=== PATIENT | female | born 1935 | race Caucasian/White ===

== ENCOUNTER 2022-01-30 19:32 | Inpatient (IN) ==
[2022-01-30] MEDS ORDERED: MoRPHine SULFATE 4 MG/ML 1 ML CARP\\VIAL IV PRN (19:54)
[2022-01-30] MEDS ORDERED: MoRPHine SULFATE 2 MG/ML CARP IV PRN (19:54)
[2022-01-30] MEDS ORDERED: ACETAMINOPHEN 1,000 MG/100 ML VIAL IV STA (19:56)
[2022-01-30] MEDS ORDERED: SODIUM CHLORIDE 0.9% 1000ML 1,000 ML IV SCH (20:00)
[2022-01-30 20:12] LABS: Basophils # (auto) 0.03 K/uL (0-0.2); Basophils % (auto) 0.2 %; Hematocrit (blood only) 35.5 % (37-47); Hemoglobin 11.4 g/dL (12.0-16.0); Immature Granulocytes # (auto) 0.06 K/uL (0.00-0.02); Immature Granulocytes % (auto) 0.4 %; Lymphocytes % (auto) 8.6 %; Mean Corpuscular Hemoglobin 27.1 pg (25-34); Mean Corpuscular Hgb Conc 32.1 g/dL (32-36); Mean Corpuscular Volume 84.5 fL (80-100); Mean Platelet Volume 10.5 fL (7.4-10.4); Monocytes # (auto) 0.88 K/uL (0.11-0.59); Monocytes % (auto) 5.8 %; Neutrophils # (auto) 12.87 K/uL (1.4-6.5); Platelet Count 171 K/uL (130-400); RDW Coefficient of Variation 14.2 % (11.5-14.5); White Blood Count 15.14 K/uL (4.8-10.8)
[2022-01-30 20:27] LABS: INR 2.5 (0.9-1.1); Partial Thromboplastin Ratio 1.3; Partial Thromboplastin Time 36.6 Seconds (21.0-31.0); Prothrombin Time 25.6 Seconds (9.0-12.0)
[2022-01-30 20:34] LABS: Albumin Globulin Ratio 1.1 (0.9-2); Albumin Level 3.9 gm/dl (3.4-5.0); BUN Creatinine Ratio 20.4 (10-20); Bilirubin,Total 0.5 mg/dl (0.2-1.0); Creatinine Clr Calc Pharmacy 45.1 ml/min; Est GFR (Non-African American) 49.2 ml/min; Globulin 3.5 gm/dl (2.5-4.0); Total Protein 7.4 gm/dl (6.0-8.3)
--- NOTE | 2022-01-30 20:40 | Emergency Department Note ---
Impression & Plan Closed fracture of left hip, Fall from standing, Atrial fibrillation, On warfarin therapy ED Provider Note NAME: GREER IQBAL AGE: 86 SEX: F ARRIVES VIA: Ambulance INFORMANT: Patient ED PROVIDER(S): Watson Browning MD CHIEF COMPLAINT: Left hip pain PLAN: Disposition: Admit MEDICAL DECISION MAKING: The patient is a pleasant 86-year-old woman with a past medical history of atrial fibrillation and DVT on warfarin, CAD, history of CO, PUD, hypertension, hyperlipidemia who presents to the emergency department from home via EMS after having a mechanical fall falling onto her left hip suffering deformity and inability to walk. Prior to today she which she has been doing well denies fevers, chills, cough, congestion, GI or symptoms. She denies any head strike or loss of consciousness. On arrival the patient is uncomfortable no acute distress, afebrile with stable vital signs. Her left leg is externally rotated and shortened. Distal PMS intact. She has tenderness within the left inguinal region. She has no CTL spine tenderness to palpation or step-offs. Pelvis is otherwise stable. EKG without overt acute ischemia. Chest x-ray negative for acute cardiopulmonary process. WBC 15K,, nonspecific. H/H 11.4/35.5 without recent values for comparison. Platelets within normal limits. INR 2.5, therapeutic. Chemistry without metabolic acidosis. Electrolytes without significant abnormality. UA without convincing evidence of infection. Covid-19 RNA, NAAT negative. Plain films of the left hip and pelvis demonstrate intertrochanteric fracture per my preliminary review. Patient and her daughter at bedside agree with plan for admission. Case was discussed with Dr. Dominguez, [facility] hospitalist who will evaluate the patient for admission. Triage Nursing notes reviewed and agree them. Prior medical records reviewed Vital Signs: reviewed and remarkable for no significant abnormalities Differential diagnosis: Fracture, subluxation, dislocation, contusion, ligamentous injury, neurovascular, compartment syndrome, rhabdomyolysis, as well as other pathologies. ER treatment provided: See below. Diagnostics interpreted by me: ECG: Atrial fibrillation, 113 bpm, no ectopy, nonspecific ST and T wave abnormality, no overt ST elevation or depression, QTC 416, QRS 72. Cardiac Monitoring: An order for continuous cardiac monitoring was placed and demonstrated Atrial fibrillation, 113 bpm, no ectopy. Laboratory studies: See below Imaging studies: See below Consultation(s): Case was discussed with Dr. Dominguez, [facility] hospitalist who will evaluate the patient for admission. HPI: The patient is a pleasant 86-year-old woman with a past medical history of atrial fibrillation and DVT on warfarin, CAD, history of CO, PUD, hypertension, hyperlipidemia who presents to the emergency department from home via EMS after having a mechanical fall falling onto her left hip suffering deformity and inability to walk. Prior to today she which she has been doing well denies fevers, chills, cough, congestion, GI or symptoms. She denies any head strike or loss of consciousness. ROS: See above HPI for pertinent positives & negatives. A total of 10 systems reviewed and were otherwise negative. VITALS:See Below PHYSICAL EXAMINATION: GENERAL: Awake, alert, uncomfortable-appearing, in no distress HENT: Normocephalic, atraumatic. Oropharynx unremarkable. EYES: Normal conjunctiva. Sclera non-icteric. NECK: Supple. No nuchal rigidity. FROM. No JVD. RESPIRATORY: Clear to auscultation. CARDIAC: Regular rate, normal rhythm. Extremities warm and well perfused. Pulses equal. ABDOMEN: Soft, non-distended. No tenderness to palpation. No rebound or guarding. No masses. RECTAL: Deferred. MUSCULOSKELETAL: Chest examination reveals no tenderness. The back is symmetr ical on inspection without obvious abnormality. There is no CVA tenderness to palpation. Left leg is externally rotated and shortened. Distal PMS intact. She has tenderness within the left inguinal region. She has no CTL spine tenderness to palpation or step-offs. Pelvis is otherwise stable. LOWER EXTREMITIES: Calves are equal size bilaterally and non-tender. No edema. No discoloration. NEURO: Normal sensorium. No sensory or motor deficits noted. SKIN: No rash or jaundice noted. Watson Browning MD Past Med/Surg History Medical History Aneurysm of abdominal aorta Anticoagulant long-term use Arteriosclerosis of carotid artery Atrial fibrillation, persistent Basal cell cancer Chronic renal insufficiency Deep vein thrombosis of lower extremity Sick sinus syndrome Vertigo Surgical History H/O: hysterectomy S/P AAA repair Social History Smoking Status: Former smoker Hx Alcohol Use: No Hx Substance Use: No Preferred Language: Citizen Of [place] Communication Ability: Effective Speech Teacher Required: No Beliefs That Will Affect Care: None marital status: / Current Living Situation: Alone current occupational status: retired Other Information That Helps Us Care for You: No Feels Safe at Home: Yes Safety Concerns: Feels Safe At This Time Assistive Devices: Denture - Upper Allergies Allergies Allergy/AdvReac Type Severity Reaction Status Date / Time cefuroxime Allergy Intermediate HIVES Verified 01/30/22 22:19 Home Meds Home Medications Medication Instructions Recorded Confirmed atorvastatin 40 mg tablet 40 mg PO QPM #30 tab 06/30/19 01/30/22 metoprolol succinate 50 mg 50 mg PO DAILY tab 06/30/19 01/30/22 tablet,extended release 24 hr multivitamin (Daily Multi-Vitamin) 1 tab PO QAM 06/30/19 01/30/22 nitroglycerin 0.4 mg sublingual 0.4 mg SL Q5M PRN tab 06/30/19 01/30/22 tablet allopurinol 100 mg tablet 100 mg PO QAM 01/30/22 01/30/22 cholecalciferol (vitamin D3) 25 25 mcg PO DAILY 01/30/22 01/30/22 mcg (1,000 unit) tablet (Vitamin D3) diphenoxylate-atropine 2.5 1 tab PO Q6 PRN 01/30/22 01/30/22 mg-0.025 mg tablet (Lomotil) ferrous sulfate 325 mg (65 mg 325 mg PO DAILY 01/30/22 01/30/22 iron) tablet Previous Rx's Medication Instructions Recorded valsartan 80 mg tablet 80 mg PO DAILY #90 tab 08/27/21 furosemide 40 mg tablet 40 mg PO DAILY PRN #30 tab 09/29/21 warfarin 1 mg tablet 1 mg PO .COMPLEX #180 tab 01/12/22 Results & Data (ED) Vital Signs Vital Signs - 24 hr 01/30/22 19:54 01/30/22 21:25 Temperature 36.9 C Temperature Source Oral Pulse Rate 97 H Pulse Rate [Apical] 102 H Respiratory Rate 25 H 18 Respiratory Effort / Characteristics Non-Labored Spontaneous Respiratory Depth Normal Blood Pressure 141/94 H Blood Pressure [Right Arm] 146/76 H Blood Pressure Mean 109 Blood Pressure Mean [Right Arm] 99 Pulse Oximetry 95 92 Oxygen Delivery Method Room Air Room Air Sepsis Recent Fever Within 48 Hours No Sepsis New/Unexplained Change in Mental Status No Sepsis Action Taken by Nursing No Action Required Laboratory Data Attestation: I reviewed the patient's lab results. Result diagrams: 01/31/22 05:28 01/31/22 05:28 Lab Results 01/30/22 01/30/22 01/30/22 Range/Units 19:56 19:56 19:56 WBC 15.14 H (4.8-10.8) K/uL RBC 4.20 (4.2-5.4) M/uL Hgb 11.4 L (12.0-16.0) g/dL Hct 35.5 L (37-47) % MCV 84.5 (80-100) fL MCH 27.1 (25-34) pg MCHC 32.1 (32-36) g/dL RDW Std Deviation 44.0 (36.4-46.3) fL RDW Coeff of Marcell[place] 14.2 (11.5-14.5) % Plt Count 171 (130-400) K/uL MPV 10.5 H (7.4-10.4) fL Immature Gran % (Auto) 0.4 % Neut % (Auto) 85.0 % Lymph % (Auto) 8.6 % [place] % (Auto) 5.8 % Eos % (Auto) 0.0 % Baso % (Auto) 0.2 % Neut # (Auto) 12.87 H (1.4-6.5) K/uL Lymph # (Auto) 1.30 (1.2-3.4) K/uL [place] # (Auto) 0.88 H (0.11-0.59) K/uL Eos # (Auto) 0.00 (0-0.5) K/uL Baso # (Auto) 0.03 (0-0.2) K/uL Immature Gran # (Auto) 0.06 H (0.00-0.02) K/uL PT 25.6 H (9.0-12.0) Seconds INR 2.5 H (0.9-1.1) APTT 36.6 H (21.0-31.0) Seconds PTT Ratio 1.3 Sodium 134 L (136-145) mmol/L Potassium 4.0 (3.5-5.1) mmol/L Chloride 99 (98-107) mmol/L Carbon Dioxide 26 (21-32) mmol/L Anion Gap 9 (3-11) BUN 21 (6-23) mg/dl Creatinine 1.03 (0.6-1.2) mg/dl Est Cr Clr Drug Dosing 45.1 ml/min Est GFR ( Amer) 57.0 ml/min Est GFR (Non-Af Amer) 49.2 ml/min BUN/Creatinine Ratio 20.4 H (10-20) Glucose 115 H (70-99(Fasting)) mg/dl Estimat Average Glucose mg/dl Hemoglobin A1c (4.5-5.6) % Calcium 9.0 (8.5-10.1) mg/dl Magnesium (1.7-2.4) mg/dl Total Bilirubin 0.5 (0.2-1.0) mg/dl AST 19 (13-39) U/L ALT 11 (7-52) U/L Alkaline Phosphatase 103 (34-104) U/L Total Protein 7.4 (6.0-8.3) gm/dl Albumin 3.9 (3.4-5.0) gm/dl Globulin 3.5 (2.5-4.0) gm/dl Albumin/Globulin Ratio 1.1 (0.9-2) TSH (0.300-4.500) uIu/ml Urine Color Urine Appearance (Clear) Urine pH (4.5-7.5) Ur Specific Hope (1.000-1.030) Urine Protein (Negative) Urine Glucose (UA) (Negative) Urine Ketones (Negative) Urine Blood (Negative) Urine Nitrite (Negative) Urine Bilirubin (Negative) Urine Urobilinogen (Negative) Ur Leukocyte Esterase (Negative) Urine WBC (Auto) (0-5) /hpf Urine RBC (Auto) (0-4) /hpf U Hyaline Cast (Auto) (0-5) /lpf U Epithel Cells (Auto) (0-5) /lpf Urine Bacteria (Auto) (Negative) SARS-CoV-2, RNA, NAAT (NEGATIVE) 01/30/22 01/30/22 01/30/22 Range/Units 19:56 19:56 19:56 WBC (4.8-10.8) K/uL RBC (4.2-5.4) M/uL Hgb (12.0-16.0) g/dL Hct (37-47) % MCV (80-100) fL MCH (25-34) pg MCHC (32-36) g/dL RDW Std Deviation (36.4-46.3) fL RDW Coeff of [place]cell[place] (11.5-14.5) % Plt Count (130-400) K/uL MPV (7.4-10.4) fL Immature Gran % (Auto) % Neut % (Auto) % Lymph % (Auto) % [place] % (Auto) % Eos % (Auto) % Baso % (Auto) % Neut # (Auto) (1.4-6.5) K/uL Lymph # (Auto) (1.2-3.4) K/uL [place] # (Auto) (0.11-0.59) K/uL Eos # (Auto) (0-0.5) K/uL Baso # (Auto) (0-0.2) K/uL Immature Gran # (Auto) (0.00-0.02) K/uL PT (9.0-12.0) Seconds INR (0.9-1.1) APTT (21.0-31.0) Seconds PTT Ratio Sodium (136-145) mmol/L Potassium (3.5-5.1) mmol/L Chloride (98-107) mmol/L Carbon Dioxide (21-32) mmol/L Anion Gap (3-11) BUN (6-23) mg/dl Creatinine (0.6-1.2) mg/dl Est Cr Clr Drug Dosing ml/min Est GFR ( Amer) ml/min Est GFR (Non-Af Amer) ml/min BUN/Creatinine Ratio (10-20) Glucose (70-99(Fasting)) mg/dl Estimat Average Glucose 123 mg/dl Hemoglobin A1c 5.9 H (4.5-5.6) % Calcium (8.5-10.1) mg/dl Magnesium 2.0 (1.7-2.4) mg/dl Total Bilirubin (0.2-1.0) mg/dl AST (13-39) U/L ALT (7-52) U/L Alkaline Phosphatase (34-104) U/L Total Protein (6.0-8.3) gm/dl Albumin (3.4-5.0) gm/dl Globulin (2.5-4.0) gm/dl Albumin/Globulin Ratio (0.9-2) TSH 3.674 (0.300-4.500) uIu/ml Urine Color Urine Appearance (Clear) Urine pH (4.5-7.5) Ur Specific [place] (1.000-1.030) Urine Protein (Negative) Urine Glucose (UA) (Negative) Urine Ketones (Negative) Urine Blood (Negative) Urine Nitrite (Negative) Urine Bilirubin (Negative) Urine Urobilinogen (Negative) Ur Leukocyte Esterase (Negative) Urine WBC (Auto) (0-5) /hpf Urine RBC (Auto) (0-4) /hpf U Hyaline Cast (Auto) (0-5) /lpf U Epithel Cells (Auto) (0-5) /lpf Urine Bacteria (Auto) (Negative) SARS-CoV-2, RNA, NAAT (NEGATIVE) 01/30/22 01/30/22 Range/Units 20:30 20:50 WBC (4.8-10.8) K/uL RBC (4.2-5.4) M/uL Hgb (12.0-16.0) g/dL Hct (37-47) % MCV (80-100) fL MCH (25-34) pg MCHC (32-36) g/dL RDW Std Deviation (36.4-46.3) fL RDW Coeff of Marcellus (11.5-14.5) % Plt Count (130-400) K/uL MPV (7.4-10.4) fL Immature Gran % (Auto) % Neut % (Auto) % Lymph % (Auto) % [place] % (Auto) % Eos % (Auto) % Baso % (Auto) % Neut # (Auto) (1.4-6.5) K/uL Lymph # (Auto) (1.2-3.4) K/uL [place] # (Auto) (0.11-0.59) K/uL Eos # (Auto) (0-0.5) K/uL Baso # (Auto) (0-0.2) K/uL Immature Gran # (Auto) (0.00-0.02) K/uL PT (9.0-12.0) Seconds INR (0.9-1.1) APTT (21.0-31.0) Seconds PTT Ratio Sodium (136-145) mmol/L Potassium (3.5-5.1) mmol/L Chloride (98-107) mmol/L Carbon Dioxide (21-32) mmol/L Anion Gap (3-11) BUN (6-23) mg/dl Creatinine (0.6-1.2) mg/dl Est Cr Clr Drug Dosing ml/min Est GFR ( Amer) ml/min Est GFR (Non-Af Amer) ml/min BUN/Creatinine Ratio (10-20) Glucose (70-99(Fasting)) mg/dl Estimat Average Glucose mg/dl Hemoglobin A1c (4.5-5.6) % Calcium (8.5-10.1) mg/dl Magnesium (1.7-2.4) mg/dl Total Bilirubin (0.2-1.0) mg/dl AST (13-39) U/L ALT (7-52) U/L Alkaline Phosphatase (34-104) U/L Total Protein (6.0-8.3) gm/dl Albumin (3.4-5.0) gm/dl Globulin (2.5-4.0) gm/dl Albumin/Globulin Ratio (0.9-2) TSH (0.300-4.500) uIu/ml Urine Color Dark Yellow Urine Appearance Clear (Clear) Urine pH 5.0 (4.5-7.5) Ur Specific [place] 1.025 (1.000-1.030) Urine Protein Trace H (Negative) Urine Glucose (UA) Negative (Negative) Urine Ketones Trace H (Negative) Urine Blood 1+ H (Negative) Urine Nitrite Negative (Negative) Urine Bilirubin Negative (Negative) Urine Urobilinogen Negative (Negative) Ur Leukocyte Esterase Negative (Negative) Urine WBC (Auto) 1-5 (0-5) /hpf Urine RBC (Auto) 5-10 H (0-4) /hpf U Hyaline Cast (Auto) 1-5 (0-5) /lpf U Epithel Cells (Auto) 10-20 H (0-5) /lpf Urine Bacteria (Auto) Negative (Negative) SARS-CoV-2, RNA, NAAT NEGATIVE (NEGATIVE) Administered Medications Acetaminophen (Acetaminophen 325 Mg Tab) 650 mg PO Q6H PRN PRN Reason: Fever/pain Stop: 03/01/22 22:46 Last Admin: 01/31/22 08:51 Dose: 650 mg Documented by: [id number] Admin: 01/31/22 00:49 Dose: 650 mg Documented by: [id number] Allopurinol (Allopurinol 100 Mg Tab) 100 mg PO QAM [facility] Stop: 03/02/22 08:59 Last Admin: 01/31/22 08:51 Dose: 100 mg Documented by: [id number] Atorvastatin Calcium (Atorvastatin 40 Mg Tab) 40 mg PO QPM [facility] Stop: 03/02/22 00:14 Last Admin: 01/31/22 20:27 Dose: 40 mg Documented by: [id number] Admin: 01/31/22 00:50 Dose: 40 mg Documented by: [id number] Ferrous Sulfate (Ferrous Sulfate 325 Mg Tab) 325 mg PO DAILY [facility] Stop: 03/02/22 08:59 Last Admin: 01/31/22 08:52 Dose: 325 mg Documented by: [id number] Metoprolol Succinate (Metoprolol Succ 50mg Ext Rel Tab) 50 mg PO [facility] Stop: 03/02/22 20:59 Last Admin: 01/31/22 20:27 Dose: 50 mg Documented by: [id number] Morphine Sulfate (Morphine Sulfate 2 Mg/Ml Carp) 2 mg IV Q3H PRN PRN Reason: Pain Stop: 02/13/22 22:46 Last Admin: 01/30/22 22:54 Dose: 2 mg Documented by: [id number] [facility]ivit[facility] ([facility]itamin Tab) [facility] [place] [facility] [place]: 03/02/22 08:59 Last Admin: 01/31/22 08:51 Dose: 1 tab Documented by: [id number] Oxycodone HCl (Oxycodone Hcl Ir 5 Mg Tab (Immediate Release)) 5 mg PO Q4H PRN PRN Reason: Pain Stop: 02/13/22 22:46 Last Admin: 01/31/22 22:22 Dose: 5 mg Documented by: [id number] Admin: 01/31/22 16:48 Dose: 5 mg Documented by: [id number] Admin: 01/31/22 12:04 Dose: 5 mg Documented by: [id number] Valsartan (Valsartan 80 Mg Tab) 80 mg PO DAILY [facility] Stop: 03/02/22 08:59 Last Admin: 01/31/22 08:52 Dose: 80 mg Documented by: [id number] Discontinued Medications Furosemide (Furosemide Inj 20 Mg/2 Ml Vial) 20 mg IV ONE ONE Stop: 01/31/22 00:36 Last Admin: 01/31/22 00:49 Dose: 20 mg Documented by: [id number] Sodium Chloride (Nss 1000ml) 1,000 mls @ 75 mls/hr IV .[id number] [facility] Last Infusion: 01/31/22 00:41 Dose: 0 mls/hr Documented by: [id number] Admin: 01/30/22 20:32 Dose: 75 mls/hr Documented by: [id number] Acetaminophen (Ofirmev) 1,000 mg in 100 mls @ 400 mls/hr IV NOW STA Stop: 01/30/22 20:10 Last Infusion: 01/30/22 20:53 Dose: 0 mls/hr Documented by: [id number] Admin: 01/30/22 20:32 Dose: 400 mls/hr Documented by: [id number] Phytonadione 5 mg/ Dextrose 50.5 mls @ 101 mls/hr IV ONE ONE Stop: 01/31/22 10:29 Last Infusion: 01/31/22 12:45 Dose: 0 mls/hr Documented by: [id number] Admin: 01/31/22 12:04 Dose: 101 mls/hr Documented by: [id number] Phytonadione 2.5 mg/ Dextrose 50.25 mls @ 100.5 mls/hr IV ONE ONE Stop: 01/31/22 17:57 Last Infusion: 01/31/22 18:56 Dose: 0 mls/hr Documented by: [id number] Admin: 01/31/22 18:26 Dose: 100.5 mls/hr Documented by: [id number] Metoprolol Succinate (Metoprolol Succ 50mg Ext Rel Tab) 50 mg PO NOW STA Stop: 01/30/22 22:37 Last Admin: 01/31/22 00:50 Dose: 50 mg Documented by: [id number] Metoprolol Tartrate (Metoprolol Tartrate 1 Mg/Ml Vial) 2.5 mg IV NOW STA Stop: 01/30/22 21:40 Last Admin: 01/30/22 22:10 Dose: 2.5 mg Documented by: [id number] Morphine Sulfate (Morphine Sulfate 4 Mg/Ml 1 Ml Carp\Vial) 2 mg IV Q1H PRN PRN Reason: Severe Pain (Rating 7,8,9,10) Stop: 02/13/22 19:53 Last Admin: 01/30/22 20:32 Dose: 2 mg Documented by: [id number] Discharge Plan Visit Data Chief Complaint: Hip Pain ED Provider: Watson Browning Discharge Problem: Closed fracture of left hip, Fall from standing, Atrial fibrillation, On warfarin therapy Patient Disposition: Admitted As Inpatient Discharge Instructions Interventions: ED Discharge Assessment Last Done: 01/30/22 23:21 Discharge Problem: Closed fracture of left hip Qualifiers: Encounter type: initial encounter Qualified Code(s): S72.002A - Fracture of unspecified part of neck of left femur, initial encounter for closed fracture Fall from standing Qualifiers: Encounter type: initial encounter Qualified Code(s): W19.XXXA - Unspecified fall, initial encounter Atrial fibrillation Qualifiers: Atrial fibrillation type: unspecified Qualified Code(s): I48.91 - Unspecified atrial fibrillation
[2022-01-30 21:08] LABS: Appearance Urine Clear (Clear); Bacteria Urine Automated Negative (Negative); Bilirubin Urine Negative (Negative); Blood Urine 1+ (Negative); Color Urine Dark Yellow; Glucose Urine UA Negative (Negative); Ketones Urine Trace (Negative); Leukocyte Esterase Urine Negative (Negative); Nitrite Urine Negative (Negative); Protein Urine Trace (Negative); Specific Gravity Urine 1.025 (1.000-1.030); Urobilinogen Urine Negative (Negative)
[2022-01-30] MEDS ORDERED: METOPROLOL TARTRATE 1 MG/ML VIAL IV STA (21:39)
--- NOTE | 2022-01-30 22:29 | History & Physical Report ---
Date of Service January 30, 2022 Assessment & Plan (1) Rapid atrial fibrillation: Plan: Secondary to pain from left hip fracture secondary mechanical fall. INR therapeutic Hypertension, elevated secondary discomfort chronic diastolic heart failure (EF 55%, TTE 2011), some signs of fluid overload hx CAD/PVD status post surgery GERD, stable on regimen Hyperglycemia rule out DM past tobacco abuse. PCU Analgesia, IV Lopressor 1 dose now Facilitate nighttime beta-carlos, may need dose titration Low-dose Lasix 1 dose for now Orthopedics consult Re: Left hip fracture (Patient daughter requesting for Dr. Loyola.) N.p.o. until patient evaluated by Orthopedics in a.m. in anticipation of procedure. Recommend Cardiology preop eval if surgery recommended by Orthopedics and patient/family agreeable to attendant procedural benefits and risks. (Patient known to [facility].) Hold Coumadin in anticipation of procedure. Check hemoglobin A1c DVT prophylaxis. SCDs if INR less than 2 while Coumadin on hold Full code Patient daughter requesting updates from providers. Ms. Mine Ballard, contact #[phone]. Text document was generated using [employer] voice recognition software. It may contain grammatical or spelling errors. Kindly contact undersigned for clarification of any documentation item in question. History of Present Illness Chief Complaint: Fall, left hip pain Primary Care Provider: Norma Pandey MD History obtained from patient, family, and records. Medical history significant for chronic diastolic heart failure (EF 55%, TTE 2011), CAD, PVD status post surgery, A. fib on Coumadin, hypertension, GERD, past tobacco abuse. Patient fell at home today landing on her left hip. Patient noted achy left hip pain along with left hip deformity. Patient unable to stand up. No chest pain, usual shortness of breath on exertion/fluid retention, no LOC. No head trauma. Patient found by daughter on the floor. She was brought to the ER for evaluation. Patient noted to be in rapid A. fib upon arrival at the ER, heart rate 110s. 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 Allergies Allergy/AdvReac Type Severity Reaction Status Date / Time cefuroxime Allergy Intermediate HIVES Verified 01/30/22 22:19 Home Medications Medication Instructions Recorded Confirmed Type atorvastatin 40 mg tablet 40 mg PO QPM #30 tab 06/30/19 01/30/22 History metoprolol succinate 50 mg 50 mg PO DAILY tab 06/30/19 01/30/22 History tablet,extended release 24 hr multivitamin (Daily Multi-Vitamin) 1 tab PO QAM 06/30/19 01/30/22 History nitroglycerin 0.4 mg sublingual 0.4 mg SL Q5M PRN tab 06/30/19 01/30/22 History tablet valsartan 80 mg tablet 80 mg PO DAILY #90 tab 08/27/21 01/30/22 Rx furosemide 40 mg tablet 40 mg PO DAILY PRN #30 tab 09/29/21 01/30/22 Rx warfarin 1 mg tablet 1 mg PO .COMPLEX #180 tab 01/12/22 01/30/22 Rx allopurinol 100 mg tablet 100 mg PO QAM 01/30/22 01/30/22 History cholecalciferol (vitamin D3) 25 25 mcg PO DAILY 01/30/22 01/30/22 History mcg (1,000 unit) tablet (Vitamin D3) diphenoxylate-atropine 2.5 1 tab PO Q6 PRN 01/30/22 01/30/22 History mg-0.025 mg tablet (Lomotil) ferrous sulfate 325 mg (65 mg 325 mg PO DAILY 01/30/22 01/30/22 History iron) tablet Past Med/Surg History Medical History Aneurysm of abdominal aorta Anticoagulant long-term use Arteriosclerosis of carotid artery Atrial fibrillation, persistent Basal cell cancer Chronic renal insufficiency Deep vein thrombosis of lower extremity Sick sinus syndrome Vertigo Surgical History H/O: hysterectomy S/P AAA repair Social History Smoking Status: Former smoker Hx Alcohol Use: No Hx Substance Use: No Preferred Language: Belgian Communication Ability: Effective Special Delivery Carrier Required: No Beliefs That Will Affect Care: None marital status: / Current Living Situation: Alone current occupational status: retired Other Information That Helps Us Care for You: No Feels Safe at Home: Yes Safety Concerns: Feels Safe At This Time Assistive Devices: Denture - Upper Review of Systems Review of Systems: As per HPI, all other systems reviewed and negative Physical Exam Physical Exam: GENERAL: Comfortable, pleasant, looks younger for stated age, obese, no respiratory distress SKIN: Normal color, warm HEENT: [place] palpebral conjunctivae, no ptosis, dry buccal mucosa NECK : Supple, no tenderness CHEST : Decreased breath sounds, no tenderness HEART : Irregular, no obvious murmurs ABDOMEN: Marked distention, nontender EXTREMITIES : Bilateral LE swelling, left hip tenderness NEUROLOGIC : Coherent, no facial asymmetry, gait and stance not assessed Results & Data Results & Data ([facility]) Vital Signs (Past 12 Hours) Vital Signs Temp Pulse Pulse Resp BP BP Pulse Ox 01/30/22 22:10 118 H 165/92 H 01/30/22 21:25 102 H 18 146/76 H 92 01/30/22 19:54 36.9 C 97 H 25 H 141/94 H 95 Laboratory Results Laboratory Results WBC 15.14 K/uL (4.8-10.8) H 01/30/22 19:56 RBC 4.20 M/uL (4.2-5.4) 01/30/22 19:56 Hgb 11.4 g/dL (12.0-16.0) L 01/30/22 19:56 Hct 35.5 % (37-47) L 01/30/22 19:56 MCV 84.5 fL (80-100) 01/30/22 19:56 MCH 27.1 pg (25-34) 01/30/22 19:56 MCHC 32.1 g/dL (32-36) 01/30/22 19:56 RDW Std Deviation 44.0 fL (36.4-46.3) 01/30/22 19:56 RDW Coeff of Marcell[place] 14.2 % (11.5-14.5) 01/30/22 19:56 Plt Count 171 K/uL (130-400) 01/30/22 19:56 MPV 10.5 fL (7.4-10.4) H 01/30/22 19:56 Immature Gran % (Auto) 0.4 % 01/30/22 19:56 Neut % (Auto) 85.0 % 01/30/22 19:56 Lymph % (Auto) 8.6 % 01/30/22 19:56 [place] % (Auto) 5.8 % 01/30/22 19:56 Eos % (Auto) 0.0 % 01/30/22 19:56 Baso % (Auto) 0.2 % 01/30/22 19:56 Neut # (Auto) 12.87 K/uL (1.4-6.5) H 01/30/22 19:56 Lymph # (Auto) 1.30 K/uL (1.2-3.4) 01/30/22 19:56 [place] # (Auto) 0.88 K/uL (0.11-0.59) H 01/30/22 19:56 Eos # (Auto) 0.00 K/uL (0-0.5) 01/30/22 19:56 Baso # (Auto) 0.03 K/uL (0-0.2) 01/30/22 19:56 Immature Gran # (Auto) 0.06 K/uL (0.00-0.02) H 01/30/22 19:56 PT 25.6 Seconds (9.0-12.0) H 01/30/22 19:56 INR 2.5 (0.9-1.1) H 01/30/22 19:56 APTT 36.6 Seconds (21.0-31.0) H 01/30/22 19:56 PTT Ratio 1.3 01/30/22 19:56 Sodium 134 mmol/L (136-145) L 01/30/22 19:56 Potassium 4.0 mmol/L (3.5-5.1) 01/30/22 19:56 Chloride 99 mmol/L (98-107) 01/30/22 19:56 Carbon Dioxide 26 mmol/L (21-32) 01/30/22 19:56 Anion Gap 9 (3-11) 01/30/22 19:56 BUN 21 mg/dl (6-23) 01/30/22 19:56 Creatinine 1.03 mg/dl (0.6-1.2) 01/30/22 19:56 Est Cr Clr Drug Dosing 45.1 ml/min 01/30/22 19:56 Est GFR ( Amer) 57.0 ml/min 01/30/22 19:56 Est GFR (Non-Af Amer) 49.2 ml/min 01/30/22 19:56 BUN/Creatinine Ratio 20.4 (10-20) H 01/30/22 19:56 Glucose 115 mg/dl (70-99(Fasting)) H 01/30/22 19:56 Calcium 9.0 mg/dl (8.5-10.1) 01/30/22 19:56 Magnesium 2.0 mg/dl (1.7-2.4) 01/30/22 19:56 Total Bilirubin 0.5 mg/dl (0.2-1.0) 01/30/22 19:56 AST 19 U/L (13-39) 01/30/22 19:56 ALT 11 U/L (7-52) 01/30/22 19:56 Alkaline Phosphatase 103 U/L (34-104) 01/30/22 19:56 Total Protein 7.4 gm/dl (6.0-8.3) 01/30/22 19:56 Albumin 3.9 gm/dl (3.4-5.0) 01/30/22 19:56 Globulin 3.5 gm/dl (2.5-4.0) 01/30/22 19:56 Albumin/Globulin Ratio 1.1 (0.9-2) 01/30/22 19:56 TSH 3.674 uIu/ml (0.300-4.500) 01/30/22 19:56 Urine Color Dark Yellow 01/30/22 20:50 Urine Appearance Clear (Clear) 01/30/22 20:50 Urine pH 5.0 (4.5-7.5) 01/30/22 20:50 Ur Specific [place] 1.025 (1.000-1.030) 01/30/22 20:50 Urine Protein Trace (Negative) H 01/30/22 20:50 Urine Glucose (UA) Negative (Negative) 01/30/22 20:50 Urine Ketones Trace (Negative) H 01/30/22 20:50 Urine Blood 1+ (Negative) H 01/30/22 20:50 Urine Nitrite Negative (Negative) 01/30/22 20:50 Urine Bilirubin Negative (Negative) 01/30/22 20:50 Urine Urobilinogen Negative (Negative) 01/30/22 20:50 Ur Leukocyte Esterase Negative (Negative) 01/30/22 20:50 Urine WBC (Auto) 1-5 /hpf (0-5) 01/30/22 20:50 Urine RBC (Auto) 5-10 /hpf (0-4) H 01/30/22 20:50 U Hyaline Cast (Auto) 1-5 /lpf (0-5) 01/30/22 20:50 U Epithel Cells (Auto) 10-20 /lpf (0-5) H 01/30/22 20:50 Urine Bacteria (Auto) Negative (Negative) 01/30/22 20:50 SARS-CoV-2, RNA, NAAT NEGATIVE (NEGATIVE) 01/30/22 20:30 Diagnostic Findings Hip x-ray as per my interpretation left femoral neck fracture Chest x-ray as per my interpretation cardiomegaly, minimal congestion EKG as per my interpretation : Rate 115, A. fib, RAD, T wave flattening lateral leads
[2022-01-30] MEDS ORDERED: METOPROLOL SUCC 50MG EXT REL TAB PO STA (22:36)
[2022-01-30] MEDS ORDERED: PROMETHAZINE HCL 12.5 MG in SODIUM CHLORIDE 0.9% 50 ML IV PRN (22:47)
[2022-01-30] MEDS: MoRPHine SULFATE 2 MG/ML CARP IV PRN (22:54)
[2022-01-30] MEDS ORDERED: NITROGLYCERIN SL 0.4 MG/TAB TAB SL PRN (23:45)
[2022-01-30] MEDS ORDERED: NALOXONE HCL 0.4 MG/1 ML VIAL/CARP IV PRN (23:45)
[2022-01-30] MEDS ORDERED: MAGNESIUM HYDROXIDE SUSP 30 ML UDC PO PRN (23:45)
[2022-01-30] MEDS ORDERED: bisacodyL 10 MG SUPP PR PRN (23:45)
[2022-01-31] MEDS ORDERED: FUROSEMIDE INJ 20 MG/2 ML VIAL IV ONE (00:35)
[2022-01-31] MEDS: ACETAMINOPHEN 325 MG TAB PO PRN ×2 (00:49→08:51)
[2022-01-31] MEDS: ATORVASTATIN 40 MG TAB PO SCH ×2 (00:50→20:27)
[2022-01-31 05:57] LABS: Basophils # (auto) 0.02 K/uL (0-0.2); Basophils % (auto) 0.2 %; Eosinophils # (auto) 0.01 K/uL (0-0.5); Eosinophils % (auto) 0.1 %; Hemoglobin 10.7 g/dL (12.0-16.0); Immature Granulocytes # (auto) 0.03 K/uL (0.00-0.02); Immature Granulocytes % (auto) 0.3 %; Lymphocytes # (auto) 0.94 K/uL (1.2-3.4); Lymphocytes % (auto) 9.4 %; Mean Corpuscular Hemoglobin 26.6 pg (25-34); Mean Corpuscular Hgb Conc 31.5 g/dL (32-36); Mean Corpuscular Volume 84.6 fL (80-100); Mean Platelet Volume 10.2 fL (7.4-10.4); Monocytes # (auto) 0.97 K/uL (0.11-0.59); Monocytes % (auto) 9.7 %; Neutrophils # (auto) 8.02 K/uL (1.4-6.5); Neutrophils % (auto) 80.3 %; Platelet Count 160 K/uL (130-400); RDW Coefficient of Variation 14.2 % (11.5-14.5); RDW Standard Deviation 43.9 fL (36.4-46.3); Red Blood Count 4.02 M/uL (4.2-5.4); White Blood Count 9.99 K/uL (4.8-10.8)
[2022-01-31 06:16] LABS: Calcium 8.9 mg/dl (8.5-10.1); Creatinine Clr Calc Pharmacy 45.5 ml/min; Est GFR (African American) 59.1 ml/min; Potassium 4.6 mmol/L (3.5-5.1)
[2022-01-31 06:21] LABS: INR 2.4 (0.9-1.1); Prothrombin Time 24.5 Seconds (9.0-12.0)
--- NOTE | 2022-01-31 06:40 | XRay Report ---
XR hip LT 2V w pelvis CLINICAL HISTORY: Status post fall with left hip pain. COMPARISON STUDY: No previous studies for comparison. TECHNIQUE: AP pelvis and 2 left hip views FINDINGS: Bones: There is a nondisplaced, intertrochanteric fracture of the left femoral neck. The remaining linda danya are intact. There is no lytic or blastic lesion. Joints: The hip joint space is maintained. The bones are in anatomic alignment. Soft tissues: There is no focal soft tissue abnormality. There is no radiopaque foreign body. IMPRESSION: 1. Nondisplaced intertrochanteric fracture of the left femoral neck. ACT 112: Negative or not required by law. Electronically signed by: Aamir Ibanez M.D. 01/31/2022 6:39 AM
--- NOTE | 2022-01-31 06:41 | XRay Report ---
XR chest 1V portable CLINICAL HISTORY: preop. Evaluate cardiopulmonary status COMPARISON STUDY: 10/10/2015 TECHNIQUE: 1 view of the chest FINDINGS: Single frontal view of the chest demonstrates the heart to be moderately enlarged. There is hyperinfl ation of the lungs with attenuation of the pulmonary vasculature peripherally characteristic of under lying chronic obstructive pulmonary disease. The lungs are clear of alveolar opacities. There is no e vidence for pleural effusion. There is no evidence for vascular congestion. There is no acute osseous pathology. IMPRESSION: 1. No acute cardiopulmonary disease. 2. Cardiomegaly with evidence for underlying COPD. ACT 112: Negative or not required by law. Electronically signed by: Aamir Ibanez M.D. 01/31/2022 6:40 AM
--- NOTE | 2022-01-31 07:42 | Orthopedic Consultation ---
Date of Service January 31, 2022 Assessment & Plan (1) Closed fracture of left hip: I discussed the diagnosis and treatment options with her at bedside. I also called her daughter and discussed everything with her as well. I recommended intramedullary nail fixation of the left hip. Her and her daughter would like to proceed. They understand the risk, benefits, and alternatives to procedure and elected to proceed. Time was spent describing the procedure and postoperative expectations. The hospitalist note mentioned a cardiology clearance. She also has an INR of 2.4. I would like to work on normalizing the INR is much as possible. She can have a diet today. She will be n.p.o. past midnight tonight. We will plan on doing the procedure tomorrow morning. History of Present Illness Reason for Consultation: Left intertrochanteric hip fracture . Requesting Physician: . Attending Physician: Fariha Abraham MD Bria is a pleasant 86-year-old female who tripped and fell yesterday directly onto her left hip. She began having severe left hip pain. She came to the emergency room and radiographs demonstrated a moderately displaced intertrochanteric fracture of the left hip. She was admitted to the hospitalist service and orthopedics was consulted to evaluate and treat. . Allergies Allergy/AdvReac Type Severity Reaction Status Date / Time cefuroxime Allergy Intermediate HIVES Verified 01/30/22 22:19 Home Medications Medication Instructions Recorded Confirmed Type atorvastatin 40 mg tablet 40 mg PO QPM #30 tab 06/30/19 01/30/22 History metoprolol succinate 50 mg 50 mg PO DAILY tab 06/30/19 01/30/22 History tablet,extended release 24 hr multivitamin (Daily Multi-Vitamin) 1 tab PO QAM 06/30/19 01/30/22 History nitroglycerin 0.4 mg sublingual 0.4 mg SL Q5M PRN tab 06/30/19 01/30/22 History tablet valsartan 80 mg tablet 80 mg PO DAILY #90 tab 08/27/21 01/30/22 Rx furosemide 40 mg tablet 40 mg PO DAILY PRN #30 tab 09/29/21 01/30/22 Rx warfarin 1 mg tablet 1 mg PO .COMPLEX #180 tab 01/12/22 01/30/22 Rx allopurinol 100 mg tablet 100 mg PO QAM 01/30/22 01/30/22 History cholecalciferol (vitamin D3) 25 25 mcg PO DAILY 01/30/22 01/30/22 History mcg (1,000 unit) tablet (Vitamin D3) diphenoxylate-atropine 2.5 1 tab PO Q6 PRN 01/30/22 01/30/22 History mg-0.025 mg tablet (Lomotil) ferrous sulfate 325 mg (65 mg 325 mg PO DAILY 01/30/22 01/30/22 History iron) tablet Past Med/Surg History Medical History Aneurysm of abdominal aorta Anticoagulant long-term use Arteriosclerosis of carotid artery Atrial fibrillation, persistent Basal cell cancer Chronic renal insufficiency Deep vein thrombosis of lower extremity Sick sinus syndrome Vertigo Surgical History H/O: hysterectomy S/P AAA repair Social History Smoking Status: Former smoker Hx Alcohol Use: No Hx Substance Use: No Preferred Language: Malawian Communication Ability: Effective Field Technical Assistant Required: No Beliefs That Will Affect Care: None marital status: / Current Living Situation: Alone current occupational status: retired Other Information That Helps Us Care for You: No Feels Safe at Home: Yes Safety Concerns: Feels Safe At This Time Assistive Devices: Denture - Upper Review of Systems All systems reviewed & are unremarkable except as noted in HPI & below. Physical Exam On physical examination of the left hip, the skin quality looks good. Her leg lengths are equal. She has active dorsiflexion plantarflexion of her left ankle. . Constitutional WD/WN, vitals as above Eyes PERRL, conjunctivae normal, anicteric sclerae ENMT external ear and nose normal, oropharynx normal Neck trachea midline, no thyromegaly Respiratory normal respiratory effort Cardiovascular RRR, no murmur, no edema Gastrointestinal (Abdomen) normal bowel sounds, soft, nontender, no hepatosplenomegaly Psychiatric A+Ox3, euthymic affect Results & Data Results & Data Laboratory Results . Diagnostic Findings X-rays of the left hip show a moderately displaced intertrochanteric hip fracture. . [facility] Care Time/CCT Total # of Minutes Spent Total Time Spent with Patient: Total time spent is greater than 50% in coordination of care (as documented) at patient's floor/unit and/or counseling patient: Coding Level of Care Code 48611 Inpt Consult Level 4 Diagnoses Closed fracture of left hip S72.002A Encounter type: initial encounter (1) Closed fracture of left hip Encounter type: initial encounter Qualified Code(s): S72.002A - Fracture of unspecified part of neck of left femur, initial encounter for closed fracture
[2022-01-31 08:51] LABS: Estimated Average Glucose 123 mg/dl; Hemoglobin A1C 5.9 % (4.5-5.6)
[2022-01-31] MEDS: MULTIVITAMIN TAB PO SCH (08:51)
[2022-01-31] MEDS: allopurinoL 100 MG TAB PO SCH (08:51)
[2022-01-31] MEDS: VALSARTAN 80 MG TAB PO SCH (08:52)
[2022-01-31] MEDS: FERROUS SULFATE 325 MG TAB PO SCH (08:52)
[2022-01-31] MEDS ORDERED: PHYTONADIONE 5 MG in DEXTROSE 5% 50 ML IV ONE (10:00)
[2022-01-31] MEDS: oxyCODONE HCL IR 5 MG TAB (IMMEDIATE RELEASE) PO PRN ×3 (12:04→22:22)
--- NOTE | 2022-01-31 12:50 | Cardiology Consultation ---
Date of Consultation January 31, 2022 Assessment & Plan (1) Atrial fibrillation: -ventricular response was rapid on presentation, however, she was acutely ill. -ventricular response now adequately controlled on metoprolol succinate. -warfarin currently on hold for planned surgery. -did receive a dose of vitamin K. (2) CAD (coronary artery disease): -suffered an anterolateral ST-elevation CA in May 2009 -culprit lesion was a 99% small D1 not amenable to intervention. -other disease included a 60% mid LAD, and a 60% mid RCA. -quiescent on medical management. (3) HTN (hypertension): -adequate control on current regimen. (4) High cholesterol: -continue atorvastatin. (5) Preop cardiovascular exam: -acceptable cardiac risk for surgery without further testing. -demonstrated good functional status prior to her fall yesterday. History of Present Illness Attending Physician: Fariha Abraham MD History of Present Illness Mrs. Deras is an 86-year-old female admitted yesterday with a fractured left hip. This consultation was ordered to assist in her cardiac management and provide cardiac clearance. Of note, patient typically follows with Dr. Haresh Deras in the outpatient setting. The patient was in her usual state of health until yesterday after. She was walking around her kitchen and inadvertently tripped over a bench. She fell on her left hip and was unable to get off the floor. Evaluation in the emergency room revealed a moderately displaced intratrochanteric fracture of the left hip. Surgery is planned for tomorrow morning. The patient carries a history of coronary artery disease having suffered an anterolateral ST-elevation CA in May 2009. The culprit lesion was a 99% stenosis of a very small 1st diagonal branch. She was managed medically. Other disease included a 60% mid LAD, as 60% mid RCA stenosis. The patient has done well with medical management since that time. She does not experience e xertional angina pectoris. She is able to climb 2 flights of stairs without difficulty. She does occasionally note dyspnea with vigorous physical activity. She denies syncope, presyncope, PND, orthopnea, palpitations, lower extremity edema, and claudication. The patient also carries a history of peripheral vascular disease. She underwent a right SFA embolectomy back in 2010. She underwent a right carotid endarterectomy in September 2015. She has also had an EVAR performed for an abdominal aneurysm. She follows closely with Dr. Heredia. She also carries a history of permanent atrial fibrillation. She has been maintained on long-term anticoagulation with warfarin. She is not interested in changing to 1 of the newer agents. Currently, patient is resting comfortably in bed without complaints. Past medical and surgical history 1. Coronary artery disease-see above 2. Ischemic cardiomyopathy-resolved 3. History of CHF-resolved 4. Permanent atrial fibrillation 5. Peripheral vascular disease-see above 6. GERD 7. COPD 8. Gout 9. Chronic renal failure 10. Right SFA embolectomy-2010 11. Right CEA-September 2015 12. EV AR 13. Hysterectomy Social history , lives alone Quit tobacco use many years ago Rare alcohol Family history Noncontributory Review of systems A 10 review systems was undertaken and negative except for that described above. Allergies Allergy/AdvReac Type Severity Reaction Status Date / Time cefuroxime Allergy Intermediate HIVES Verified 01/30/22 22:19 Home Medications Medication Instructions Recorded Confirmed Type atorvastatin 40 mg tablet 40 mg PO QPM #30 tab 06/30/19 01/30/22 History metoprolol succinate 50 mg 50 mg PO DAILY tab 06/30/19 01/30/22 History tablet,extended release 24 hr multivitamin (Daily Multi-Vitamin) 1 tab PO QAM 06/30/19 01/30/22 History nitroglycerin 0.4 mg sublingual 0.4 mg SL Q5M PRN tab 06/30/19 01/30/22 History tablet valsartan 80 mg tablet 80 mg PO DAILY #90 tab 08/27/21 01/30/22 Rx furosemide 40 mg tablet 40 mg PO DAILY PRN #30 tab 09/29/21 01/30/22 Rx warfarin 1 mg tablet 1 mg PO .COMPLEX #180 tab 01/12/22 01/30/22 Rx allopurinol 100 mg tablet 100 mg PO QAM 01/30/22 01/30/22 History cholecalciferol (vitamin D3) 25 25 mcg PO DAILY 01/30/22 01/30/22 History mcg (1,000 unit) tablet (Vitamin D3) diphenoxylate-atropine 2.5 1 tab PO Q6 PRN 01/30/22 01/30/22 History mg-0.025 mg tablet (Lomotil) ferrous sulfate 325 mg (65 mg 325 mg PO DAILY 01/30/22 01/30/22 History iron) tablet Patient History Medical History Aneurysm of abdominal aorta Anticoagulant long-term use Arteriosclerosis of carotid artery Atrial fibrillation, persistent Basal cell cancer Chronic renal insufficiency Deep vein thrombosis of lower extremity Sick sinus syndrome Vertigo Surgical History H/O: hysterectomy S/P AAA repair Social History Smoking Status: Former smoker Hx Alcohol Use: No Hx Substance Use: No Preferred Language: Tongan Communication Ability: Effective Operating Room Scheduler Required: No Beliefs That Will Affect Care: None marital status: / Current Living Situation: Alone current occupational status: retired Other Information That Helps Us Care for You: No Feels Safe at Home: Yes Safety Concerns: Feels Safe At This Time Assistive Devices: Denture - Upper Physical Exam Physical Exam: In general is well-developed well-nourished white female no acu te distress. HEENT exam is negative. Neck is supple with full carotid upstrokes. There are no carotid bruits. Jugular is pressure is flat at 90. There is no thyromegaly. Cardiovascular exam reveals irregular irregular rhythm with distant heart sounds. No obvious murmurs. Lungs are clear without rales, rhonchi or wheezes. Abdomen is soft without bruits. Extremities reveal intact radial artery pulses bilaterally. There is no peripheral edema. Left lower extremity is externally rotated. Results & Data ([facility]) Vital Signs (Past 12 Hours) Vital Signs Temp Pulse Pulse Resp BP Pulse Ox Pulse Ox 01/31/22 10:56 36.6 C 68 19 93/62 L 93 01/31/22 09:30 75 01/31/22 08:11 36.4 C L 82 18 102/67 100 01/31/22 06:02 80 01/31/22 03:45 95 01/31/22 03:10 36.5 C 77 20 107/64 96 Laboratory Results CBC notes hemoglobin 10.7, crit 34.0, white count 9.99, a platelet count [id number]. Electrolytes note a sodium of 135, potassium 4.6, chloride 101, bicarb 29, BUN 21, creatinine 1.0, glucose of 122. BNP is mildly elevated 342. INR is therapeutic at 2.4. Diagnostic Findings EKG notes atrial fibrillation with a rapid ventricular response. There is nonspecific ST T-wave abnormality. quality assurance monitor final now notes rate controlled atrial fibrillation. Chest x-ray shows cardiomegaly and evidence of COPD. PG Care Time/CCT Total # of Minutes Spent Total Time Spent with Patient: Total time spent is greater than 50% in coordination of care (as documented) at patient's floor/unit and/or counseling patient: Coding Level of Care Code 59107 Initial Inpt Care Lvl 3 Diagnoses Atrial fibrillation I48.91 CAD (coronary artery disease) I25.10 HTN (hypertension) I10 High cholesterol E78.00 Preop cardiovascular exam Z01.810
--- NOTE | 2022-01-31 13:13 | Electrocardiogram Report ---
Test Reason : Blood Pressure : / mmHG Vent. Rate : 113 BPM Atrial Rate : 326 BPM P-R Int : 000 ms QRS Dur : 072 ms QT Int : 304 ms P-R-T Axes : 000 090 099 degrees QTc Int : 416 ms Poor data quality, interpretation may be adversely affected Atrial fibrillation with rapid ventricular response Rightward axis Nonspecific ST and T wave abnormality Abnormal ECG When compared with ECG of 24-APR-2014 19:05, Nonspecific T wave abnormality no longer evident in Inferior leads Confirmed by Domingo Pimentel ([id number]) on 01/31/2022 1:13:36 PM Referred By: REFERRED SELF Confirmed By:Domingo Pimentel
--- NOTE | 2022-01-31 15:32 | Hospitalist Progress Note ---
Date of Service January 31, 2022 Assessment & Plan (1) Closed fracture of left hip: (2) Rapid atrial fibrillation: Plan: 86-year-old lady with PMH of HFpEF [2012 TTE 55% EF], CAD, PVD status post surgery, A. fib on Coumadin, HTN, GERD and past tobacco abuse presented 01/30 for ED secondary to mechanical fall at home landing on her left hip. She was found to be in A. fib RVR at presentation. She is being managed for the following: #. A. fib RVR #. Left hip fracture Patient presented 01/31 secondary to mechanical fall, landing on left hip. In the ED patient was found to be in A. fib with RVR and left hip fracture Admitting x-ray left hip:Nondisplaced intertrochanteric fracture of the left femoral neck. Admitting CXR: No acute findings. Afib rvr 2/2 acute condition. Heart rate under control, cardiology evaluated, acceptable cardiac risk for surgery. Patient on Coumadin, Coumadin on hold, received 5 mg IV vitamin K in AM, follow- up with INR tomorrow Repeat INR in the evening, assess for further IV vitamin K. N.p.o. midnight, 2 OR per Ortho tomorrow. Pain management. Nausea control. #. Other chronic medical conditions: HTN, chronic diastolic heart failure, CAD/PVD status post surgery, GERD, prediabetes Continue with/resume home meds as and when appropriate Caution with blood pressure medication especially perioperative. Lifestyle modification for prediabetes. DVT prophylaxis. SCDs if INR less than 2 while Coumadin on hold Full code Patient daughter Ms. Mine Ballard, contact #[phone]. Text document was generated using voice recognition software. It may contain grammatical or spelling errors. Kindly contact undersigned for clarification of any documentation item in question. Admission and Anticipated Discharge Date Admission Date: January 30, 2022 Subjective Patient seen and examined at bedside as a follow-up of A. fib RVR and left hip fracture secondary to mechanical fall. Patient was lying in bed, on room air, NAD, reports no new acute events overnight. Patient reports eating okay and moving bowels okay. Patient denies any headache/dizziness. Patient reports hip pain under control as long as she does not move. Has urinary catheter in situ. Patient denies any chest pain/palpitation/belly pain/other review of symptoms. Patient does have some tense belly but no belly discomfort or pain or distended than usual, will continue to monitor. Physical Exam Physical Exam: GENERAL: Alert and oriented x3. NAD, on RA. HEENT: No pallor, no icterus. Pupils equal, round and reactive to light. Oral mucosa moist. NECK: No JVD, no neck masses. HEART: S1 and S2 heard. irregular rate and rhythm. No murmur, no gallop. RESPIRATORY SYSTEM: Normal AP diameter. No accessory muscle use. No wheezing, no crackles. ABDOMEN: Soft, bowel sounds present, nontender, no distention. CENTRAL NERVOUS SYSTEM: No facial droop. Speech is clear. Obeys simple commands. Moves extremities. EXTREMITIES: RLE 1-2 + edema, LLE trace edema, no erythema seen. Lt hip pain with minimal movement. Results & Data Results & Data ([facility]) Vital Signs (Past 12 Hours) Vital Signs Temp Pulse Pulse Resp BP Pulse Ox Pulse Ox 01/31/22 10:56 36.6 C 68 19 93/62 L 93 01/31/22 09:30 75 01/31/22 08:11 36.4 C L 82 18 102/67 100 01/31/22 06:02 80 01/31/22 03:45 95 (1) Closed fracture of left hip Encounter type: initial encounter Qualified Code(s): S72.002A - Fracture of unspecified part of neck of left femur, initial encounter for closed fracture
[2022-01-31 16:48] LABS: INR 1.8 (0.9-1.1)
[2022-01-31] MEDS ORDERED: PHYTONADIONE 2.5 MG in DEXTROSE 5% 50 ML IV ONE (17:28)
[2022-01-31] MEDS: METOPROLOL SUCC 50MG EXT REL TAB PO SCH (20:27)
[2022-02-01 06:51] LABS: Hematocrit (blood only) 31.2 % (37-47); Mean Corpuscular Hemoglobin 27.2 pg (25-34); Mean Corpuscular Hgb Conc 32.1 g/dL (32-36); Mean Platelet Volume 10.5 fL (7.4-10.4); Platelet Count 162 K/uL (130-400); RDW Coefficient of Variation 14.2 % (11.5-14.5); Red Blood Count 3.67 M/uL (4.2-5.4); White Blood Count 11.84 K/uL (4.8-10.8)
[2022-02-01] MEDS ORDERED: BUPIVACAINE/EPINEPHRINE 0.25% 1:200,000 30 ML VIAL ONE (06:59)
[2022-02-01 07:08] LABS: BUN Creatinine Ratio 23.1 (10-20); Calcium 8.9 mg/dl (8.5-10.1); Est GFR (African American) 53.8 ml/min; Est GFR (Non-African American) 46.4 ml/min; Phosphorus 3.3 mg/dl (2.5-4.9); Potassium 5.1 mmol/L (3.5-5.1)
--- NOTE | 2022-02-01 07:09 | History & Physical Bridge Note ---
Date of Service February 01, 2022 History & Physical Bridge Note I have examined the patient, reviewed the History & Physical and in the interval since the performance of the History & Physical I have noted the following changes of clinical significance: no changes noted
[2022-02-01] MEDS ORDERED: DEXAMETHASONE SOD INJ 4 MG/ML VIAL ONE (07:12)
[2022-02-01] MEDS ORDERED: SUCCINYLCHOLINE CHLORIDE 20 MG/ML 10 ML VIAL IV ONE (07:12)
[2022-02-01] MEDS ORDERED: ONDANSETRON INJ 2 MG/ML 2 ML VIAL ONE (07:12)
[2022-02-01] MEDS ORDERED: fentaNYL citrate 100 MCG/2 ML VIAL ONE ×2 (07:12→07:55)
[2022-02-01] MEDS ORDERED: PROPOFOL IV EMULSION 10 MG/ML 20 ML VIAL IV ONE (07:12)
[2022-02-01] MEDS ORDERED: SUGAMMADEX SODIUM 200 MG/2 ML VIAL IV ONE (07:17)
[2022-02-01] MEDS ORDERED: CLINDAMYCIN 600 MG/D5W 50 ML BAG IV ONE (07:26)
--- NOTE | 2022-02-01 07:30 | Anesthesiology Consultation ---
Date of Service February 01, 2022 Assessment & Plan ASA ASA3 Proposed Anesthesia Anesthesia Type: General Risk / Benefits Reviewed With: PT / POA / Parent / Guardian, Accepts Plan and Informed Consent Obtained History Surgery Operation Date: 02/01/22 07:30 Proposed Procedures p Intramedullary Simone Femur - Levon Loyola, DO Height/Weight Height: 5 ft 6 in Weight: 88.9 kg Allergies Allergy/AdvReac Type Severity Reaction Status Date / Time cefuroxime Allergy Intermediate HIVES Verified 01/30/22 22:19 Medications Home Medications Medication Instructions Recorded Confirmed Last Taken atorvastatin 40 mg tablet 40 mg PO QPM #30 tab 06/30/19 01/30/22 Unknown metoprolol succinate 50 mg 50 mg PO DAILY tab 06/30/19 01/30/22 Unknown tablet,extended release 24 hr multivitamin (Daily Multi-Vitamin) 1 tab PO QAM 06/30/19 01/30/22 Unknown nitroglycerin 0.4 mg sublingual 0.4 mg SL Q5M PRN tab 06/30/19 01/30/22 Unknown tablet valsartan 80 mg tablet 80 mg PO DAILY #90 tab 08/27/21 01/30/22 Unknown furosemide 40 mg tablet 40 mg PO DAILY PRN #30 tab 09/29/21 01/30/22 Unknown warfarin 1 mg tablet 1 mg PO .COMPLEX #180 tab 01/12/22 01/30/22 Unknown allopurinol 100 mg tablet 100 mg PO QAM 01/30/22 01/30/22 Unknown cholecalciferol (vitamin D3) 25 25 mcg PO DAILY 01/30/22 01/30/22 Unknown mcg (1,000 unit) tablet (Vitamin D3) diphenoxylate-atropine 2.5 1 tab PO Q6 PRN 01/30/22 01/30/22 Unknown mg-0.025 mg tablet (Lomotil) ferrous sulfate 325 mg (65 mg 325 mg PO DAILY 01/30/22 01/30/22 Unknown iron) tablet Active Medications Generic Name Dose Route Start Last Admin Trade Name Freq PRN Reason Stop Dose Admin Acetaminophen 650 mg 01/30/22 22:47 01/31/22 08:51 Acetaminophen 325 Mg Tab PO 03/01/22 22:46 650 mg Q6H PRN Administration Fever/pain Allopurinol 100 mg 01/31/22 09:00 01/31/22 08:51 Allopurinol 100 Mg Tab PO 03/02/22 08:59 100 mg QAM RICK Administration Atorvastatin Calcium 40 mg 01/31/22 00:15 01/31/22 20:27 Atorvastatin 40 Mg Tab PO 03/02/22 00:14 40 mg QPM RICK Administration Ferrous Sulfate 325 mg 01/31/22 09:00 01/31/22 08:52 Ferrous Sulfate 325 Mg Tab PO 03/02/22 08:59 325 mg DAILY RICK Administration Metoprolol Succinate 50 mg 01/31/22 21:00 01/31/22 20:27 Metoprolol Succ 50mg Ext Rel Tab PO 03/02/22 20:59 50 mg HS RICK Administration Morphine Sulfate 2 mg 01/30/22 22:47 01/30/22 22:54 Morphine Sulfate 2 Mg/Ml Carp IV 02/13/22 22:46 2 mg Q3H PRN Administration Pain Multivitamins 1 tab 01/31/22 09:00 01/31/22 08:51 Multivitamin Tab PO 03/02/22 08:59 1 tab QAM RICK Administration Oxycodone HCl 5 mg 01/30/22 22:47 01/31/22 22:22 Oxycodone Hcl Ir 5 Mg Tab (Immediate Release) PO 02/13/22 22:46 5 mg Q4H PRN Administration Pain Valsartan 80 mg 01/31/22 09:00 01/31/22 08:52 Valsartan 80 Mg Tab PO 03/02/22 08:59 80 mg DAILY RICK Administration NPO Date Last Intake of Fluids: 02/01/22 Time Last Intake of Fluids: 00:00 Date Last Intake of Solids: 02/01/22 Time Last Intake of Solids: 00:00 Past Medical History Medical History Aneurysm of abdominal aorta Anticoagulant long-term use Arteriosclerosis of carotid artery Atrial fibrillation, persistent Basal cell cancer Chronic renal insufficiency Deep vein thrombosis of lower extremity Sick sinus syndrome Vertigo Exercise / Class Metabolic Activity II 4-5 Yardwork/Stairs/Walk up hill Past Surgical History Surgical History H/O: hysterectomy S/P AAA repair Past Anesthesia History No Hx of Anesthesia Complications and No Family Hx of Anesthesia Complications History of PONV No Hx of PONV and No Hx of Motion Sickness Social History Smoking Status: Former smoker Hx Alcohol Use: No Hx Substance Use: No Review of Systems denies fever/cough/ colds/ chest pain/ SOB/ MELYSSA denies MELYSSA Physical Exam Vital Signs Last Vital Signs Temp 37.1 C 02/01/22 03:31 Pulse 107 H 02/01/22 03:31 Resp 18 02/01/22 03:31 BP 100/67 02/01/22 03:31 Pulse Ox 95 02/01/22 03:31 ENMT Mouth: no TMJ abnormality and no dentition abnormality Thyromental Distance: > or= 3.5 Finger Breadths Mallampati Class: II Neck neck extension not limited Respiratory normal respiratory effort; no respiratory distress Auscultation: lungs clear to auscultation bilaterally Cardiovascular Rate/Rhythm: regular rate and regular rhythm Neurologic moves all extremities Psychiatric Orientation: alert and oriented x 3 Testing Laboratory Results 02/01/22 06:25 02/01/22 06:25 PT 19.0 Seconds (9.0-12.0) H 01/31/22 16:16 INR 1.8 (0.9-1.1) H 01/31/22 16:16 APTT 36.6 Seconds (21.0-31.0) H 01/30/22 19:56 Hemoglobin A1c 5.9 % (4.5-5.6) H 01/30/22 19:56 Urine Color Dark Yellow 01/30/22 20:50 Urine Appearance Clear (Clear) 01/30/22 20:50 Urine pH 5.0 (4.5-7.5) 01/30/22 20:50 Ur Specific Daggett 1.025 (1.000-1.030) 01/30/22 20:50 Urine Protein Trace (Negative) H 01/30/22 20:50 Urine Glucose (UA) Negative (Negative) 01/30/22 20:50 Urine Ketones Trace (Negative) H 01/30/22 20:50 Urine Nitrite Negative (Negative) 01/30/22 20:50 Ur Leukocyte Esterase Negative (Negative) 01/30/22 20:50 Urine WBC (Auto) 1-5 /hpf (0-5) 01/30/22 20:50 Urine RBC (Auto) 5-10 /hpf (0-4) H 01/30/22 20:50 U Hyaline Cast (Auto) 1-5 /lpf (0-5) 01/30/22 20:50 U Epithel Cells (Auto) 10-20 /lpf (0-5) H 01/30/22 20:50 Urine Bacteria (Auto) Negative (Negative) 01/30/22 20:50 Blood Type A Positive 01/31/22 05:28 Antibody Screen NEGATIVE 01/31/22 05:28
[2022-02-01] MEDS ORDERED: ATROPINE SULFATE 0.1 MG/ML 10ML SYR IV PRN (07:31)
[2022-02-01] MEDS ORDERED: HYDROmorphone INJ 2 MG/ML SYR/VIAL IV PRN (07:31)
[2022-02-01] MEDS ORDERED: fentaNYL citrate 100 MCG/2 ML VIAL IV PRN (07:31)
[2022-02-01] MEDS ORDERED: ONDANSETRON INJ 2 MG/ML 2 ML VIAL IV PRN (07:31)
[2022-02-01] MEDS ORDERED: ePHEDrine sulfate 50 MG/ML AMP IV PRN (07:31)
[2022-02-01] MEDS ORDERED: PHENYLEPHRINE 100MCG/ML 5ML SYR ONE (08:07)
--- NOTE | 2022-02-01 08:57 | Operative Report ---
PG Post Operative Report Pre & Post Diagnosis Operation Date: 02/01/22 07:30 Pre-Op Diagnosis: Intertrochanteric fracture of the left hip Post-Op Diagnosis: Intertrochanteric fracture of the left hip I identified the patient and participated in the time-out.: Yes Procedure Operation Date: 02/01/22 07:30 Actual Procedures p Intramedullary nail fixation left hip (Left) - Levon Loyola DO Surgeon Levon Loyola DO Kiln Setter None Estimated Blood Loss 30 Findings Consistent with Post-Op Diagnosis Specimens None Complications none Disposition Disposition: Recovery Room Indications Bria is a pleasant 86-year-old female who fell 2 days ago. She sustained an intertrochanteric fracture of her left hip. The surgery was delayed for a day to normalize her INR. After discussions with her and her daughter, they elected to proceed with intramedullary nail fixation of the left hip. Description of Procedure On February 01, 2022 Bria was brought down from her hospital room to the preoperative holding area. The operative extremity was then fine signed. She was given a preoperative antibiotic. She was taken back to the operative room and put under general anesthesia. She was then put in the fracture table. The left hip was pulled out the traction. Fluoroscopic images showed near anatomic alignment of the hip. The left hip was then prepped and draped in sterile fashion. A timeout was done. The patient and the operative extremity was properly identified. A lateral incision was made just superior to the greater trochanter. Dissection was taken down through the fascia. The tip of the greater trochanter was palpated. A guidepin was placed at the tip of the greater trochanter and advanced down the femoral canal. Appropriate placement was checked on orthogonal fluoroscopic images. A 17 mm opening reamer was used to open the proximal femur. A Synthes 11 mm TFN short nail was then impacted into place. Appropriate positioning was checked on fluoroscopy. An outrigger was placed. A small lateral incision was made and the cannula for the helical blade was advanced to the lateral cortex of the femur. A guidepin was then placed in the center center position of the femoral head. The helical blade measured to be 90 mm. The lateral cortex was then drilled and the helical blade was drilled. The final 90 mm helical blade was then impacted into place. The locking screw was tightened. Compression was done. A cannula was then advanced to the distal locking screw. The screw was then drilled and a 38 mm locking screw was then placed. I was able to get excellent purchase. The outrigger was then removed. Final fluoroscopic images showed near anatomic alignment. The wounds were then irrigated. The deep fascia was closed with #1 Vicryl. The deep fat layer was closed with #1 Vicryl. Skin was closed with 2-0 Vicryl and ruth. She was then placed in a soft dressing. She was then extubated and transferred to a hospital bed. She was taken to the postanesthesia care unit in stable condition. She tolerated the procedure well. I attest to the content of the Intraoperative Record and any orders documented therein. Any exceptions are noted below.
[2022-02-01] MEDS ORDERED: DROPERIDOL 5 MG/2 ML VIAL IV STA (09:27)
--- NOTE | 2022-02-01 09:42 | Anesthesiology Progress Note ---
Date of Service February 01, 2022 Anesthesia Post Procedure Vital Signs Vital Signs: Temp Pulse Resp BP BP Pulse Ox 02/01/22 09:35 100 H 17 107/80 100 02/01/22 09:25 94 H 17 122/75 100 02/01/22 09:15 90 16 137/95 100 02/01/22 09:05 117 H 21 139/86 100 02/01/22 08:56 36.6 C 104 H 16 136/76 99 02/01/22 03:31 37.1 C 107 H 18 100/67 95 02/01/22 00:43 37.6 C H 91 H 22 107/71 98 01/31/22 20:25 37 C 91 H 20 110/73 96 01/31/22 15:45 36.7 C 106 H 20 110/72 96 01/31/22 10:56 36.6 C 68 19 93/62 L 93 Pain Intensity Left Hip: Pain Intensity: 5 Transfer of Care Handoff Completed per policy Notes Mental Status: alert / awake / arousable and participated in evaluation Patient Amnestic to Procedure: Yes Nausea / Vomiting: adequately controlled Pain: adequately controlled Airway Patency, RR, SpO2: stable & adequate BP & HR: stable & adequate Hydration State: stable & adequate Anesthetic Complications: no major complications apparent and Pt Satisfied with anesthetic care
[2022-02-01] MEDS ORDERED: ENOXAPARIN INJ 40 MG/0.4 ML SYR SQ SCH (10:34)
--- NOTE | 2022-02-01 10:35 | Fluoroscopy Report ---
FL hip LT 2-3V CLINICAL HISTORY: ORIF LEFT SHORT TROCH NAIL COMPARISON STUDY: 01/30/2022 FLUOROSCOPY TIME: 58 seconds. FLUOROSCOPIC IMAGES: 4 FINDINGS: Fluoroscopic spot images were obtained in the OR status post placement of an intertrochante jaylene nail and intramedullary frank transfixing an intratrochanteric fracture of the left femoral neck. IMPRESSION: Status post internal fixation. ACT 112: Negative or not required by law. Electronically signed by: Aamir Ibanez M.D. 02/01/2022 10:34 AM
--- NOTE | 2022-02-01 10:38 | XRay Report ---
XR hip LT min 2V CLINICAL HISTORY: Post-Operative implant position. COMPARISON STUDY: 01/30/2022 TECHNIQUE: 2 left hip views FINDINGS: The patient is status post internal fixation with intertrochanteric nail and short stem int ramedullary frank transfixing an intratrochanteric fracture left femoral neck. Fracture fragments are i n anatomic alignment. Skin ruth are seen within the soft tissues. IMPRESSION: 1. Status post internal fixation. ACT 112: Negative or not required by law. Electronically signed by: Aamir Ibanez M.D. 02/01/2022 10:36 AM
[2022-02-01] MEDS: MULTIVITAMIN TAB PO SCH (11:29)
[2022-02-01] MEDS: FERROUS SULFATE 325 MG TAB PO SCH (11:29)
[2022-02-01] MEDS: VALSARTAN 80 MG TAB PO SCH (11:29)
[2022-02-01] MEDS: allopurinoL 100 MG TAB PO SCH (11:29)
[2022-02-01] MEDS: CLINDAMYCIN/D5W 600 MG/54 ML BAG IV SCH (15:45)
--- NOTE | 2022-02-01 19:35 | Hospitalist Progress Note ---
Date of Service February 01, 2022 Assessment & Plan (1) Closed fracture of left hip: (2) Rapid atrial fibrillation: Plan: 86-year-old lady with PMH of HFpEF [2012 TTE 55% EF], CAD, PVD status post surgery, A. fib on Coumadin, HTN, GERD and past tobacco abuse presented 01/30 for ED secondary to mechanical fall at home landing on her left hip. She was found to be in A. fib RVR at presentation. She is being managed for the following: #. A. fib RVR #. Left hip fracture Patient presented 01/31 secondary to mechanical fall, landing on left hip. In the ED patient was found to be in A. fib with RVR and left hip fracture Admitting x-ray left hip:Nondisplaced intertrochanteric fracture of the left femoral neck. Admitting CXR: No acute findings. Afib rvr 2/2 acute condition. Heart rate under control, cardiology evaluated, acceptable cardiac risk for surgery. 02/01: Intramedullary nail fixation left hip (Left) - Levon Loyola, DO PT/OT, Pain Control, DVT Px per Ortho. Incentive spirometry Will resume home warfarin. DC subcut lovenox when INR closer to 2.0 #. Other chronic medical conditions: HTN, chronic diastolic heart failure, CAD/PVD status post surgery, GERD, prediabetes Continue with/resume home meds as and when appropriate Caution with blood pressure medication especially perioperative. Lifestyle modification for prediabetes. DVT prophylaxis. SCDs if INR less than 2 while Coumadin on hold Full code Patient daughter Ms. Mine Ballard, contact #[phone]. Text document was generated using voice recognition software. It may contain grammatical or spelling errors. Kindly contact undersigned for clarification of any documentation item in question. Admission and Anticipated Discharge Date Admission Date: January 30, 2022 Subjective Patient seen and examined at bedside as a follow-up of A. fib RVR and left hip fracture secondary to mechanical fall. Patient was lying in bed, on room air, NAD, reports no new acute events overnight. Pt is s/p left hip repair, reports pain under control. Pt moving gas. Patient denies any headache/dizziness. Has urinary catheter in situ. Patient denies any chest pain/palpitation/belly pain/other review of symptoms. Physical Exam Physical Exam: GENERAL: Alert and oriented x3. NAD, on RA. HEENT: No pallor, no icterus. Pupils equal, round and reactive to light. Oral mucosa moist. NECK: No JVD, no neck masses. HEART: S1 and S2 heard. irregular rate and rhythm. No murmur, no gallop. RESPIRATORY SYSTEM: Normal AP diameter. No accessory muscle use. No wheezing, no crackles. ABDOMEN: Soft, bowel sounds present, nontender, no distention. CENTRAL NERVOUS SYSTEM: No facial droop. Speech is clear. Obeys simple commands. Moves extremities. EXTREMITIES: RLE 1-2 + edema, LLE trace edema, no erythema seen. Lt hip dressing noted. Results & Data Results & Data ([facility]) Vital Signs (Past 12 Hours) Vital Signs Temp Pulse Pulse Resp BP Pulse Ox 02/01/22 16:07 36.6 C 95 H 16 101/70 94 02/01/22 15:00 86 02/01/22 14:01 103 H 18 110/60 95 02/01/22 11:51 36.5 C 105 H 18 112/60 95 02/01/22 11:03 98 H 02/01/22 11:00 100 H 99/53 L 02/01/22 10:30 36.7 C 100 H 18 102/63 93 02/01/22 09:45 36.5 C 89 13 121/80 95 02/01/22 09:35 100 H 17 107/80 100 02/01/22 09:25 94 H 17 122/75 100 02/01/22 09:15 90 16 137/95 100 02/01/22 09:05 117 H 21 139/86 100 02/01/22 08:56 36.6 C 104 H 16 136/76 99 (1) Closed fracture of left hip Encounter type: initial encounter Qualified Code(s): S72.002A - Fracture of unspecified part of neck of left femur, initial encounter for closed fracture
[2022-02-01] MEDS: oxyCODONE HCL IR 5 MG TAB (IMMEDIATE RELEASE) PO PRN (20:09)
[2022-02-01] MEDS: ATORVASTATIN 40 MG TAB PO SCH (20:10)
[2022-02-01] MEDS: WARFARIN SOD 2 MG TAB PO SCH (21:08)
[2022-02-01] MEDS: METOPROLOL SUCC 50MG EXT REL TAB PO SCH (21:37)
[2022-02-02] MEDS: oxyCODONE HCL IR 5 MG TAB (IMMEDIATE RELEASE) PO PRN ×3 (00:28→21:07)
[2022-02-02] MEDS: CLINDAMYCIN/D5W 600 MG/54 ML BAG IV SCH (00:28)
[2022-02-02] MEDS ORDERED: CLINDAMYCIN/D5W 600 MG/54 ML BAG IV SCH (06:00)
--- NOTE | 2022-02-02 06:20 | Orthopedic Progress Note ---
Date of Service February 02, 2022 Assessment & Plan (1) Closed fracture of left hip: Overall she is doing fairly well. She is having too much pain in the left hip. She is bridging Lovenox and going back on her Coumadin for DVT prophylaxis. She will be seen by physical therapy today for ambulation and range of motion exercises. She can be weightbearing as tolerated. Full orthopedic discharge instructions were placed in the discharge summary. She will follow-up with orthopedics in 2 weeks. Sandy Fraser was seen and examined at bedside this morning. Overall she is doing fairly well. She is not having too much pain in the left hip. She was able to get some sleep last night. She has no complaints. . Review of Systems All systems reviewed & are unremarkable except as noted in HPI & below. Physical Exam On physical examination of the left hip, the dressings are mostly clean and dry. She has active dorsiflexion and plantarflexion of her left ankle. She has some swelling in the area. . Results & Data Results & Data Laboratory Results . Diagnostic Findings Postoperative x-rays of the left hip show the prosthesis to be in anatomic alignment without any evidence of fracture, desiccation, or loosening . PG Care Time/CCT Total # of Minutes Spent Total Time Spent with Patient: Total time spent is greater than 50% in coordination of care (as documented) at patient's floor/unit and/or counseling patient: Coding Level of Care Code 76499 Post Operative Follow-Up Diagnoses Closed fracture of left hip S72.002A Encounter type: initial encounter (1) Closed fracture of left hip Encounter type: initial encounter Qualified Code(s): S72.002A - Fracture of unspecified part of neck of left femur, initial encounter for closed fracture
[2022-02-02 07:08] LABS: Basophils # (auto) 0.01 K/uL (0-0.2); Basophils % (auto) 0.1 %; Hematocrit (blood only) 27.1 % (37-47); Hemoglobin 8.7 g/dL (12.0-16.0); Immature Granulocytes # (auto) 0.05 K/uL (0.00-0.02); Immature Granulocytes % (auto) 0.3 %; Lymphocytes # (auto) 1.61 K/uL (1.2-3.4); Lymphocytes % (auto) 10.4 %; Mean Corpuscular Hgb Conc 32.1 g/dL (32-36); Mean Corpuscular Volume 84.2 fL (80-100); Mean Platelet Volume 10.6 fL (7.4-10.4); Monocytes # (auto) 2.08 K/uL (0.11-0.59); Monocytes % (auto) 13.4 %; Neutrophils # (auto) 11.73 K/uL (1.4-6.5); Neutrophils % (auto) 75.8 %; Platelet Count 170 K/uL (130-400); RDW Coefficient of Variation 14.2 % (11.5-14.5); RDW Standard Deviation 44.2 fL (36.4-46.3); Red Blood Count 3.22 M/uL (4.2-5.4); White Blood Count 15.48 K/uL (4.8-10.8)
[2022-02-02 07:17] LABS: INR 1.1 (0.9-1.1); Prothrombin Time 11.9 Seconds (9.0-12.0)
[2022-02-02 07:31] LABS: BUN Creatinine Ratio 27.5 (10-20); Calcium 8.6 mg/dl (8.5-10.1); Creatinine Clr Calc Pharmacy 37.6 ml/min; Est GFR (African American) 47.4 ml/min; Est GFR (Non-African American) 40.9 ml/min; Potassium 4.6 mmol/L (3.5-5.1)
[2022-02-02] MEDS: allopurinoL 100 MG TAB PO SCH (08:23)
[2022-02-02] MEDS: ENOXAPARIN INJ 40 MG/0.4 ML SYR SQ SCH (08:23)
[2022-02-02] MEDS: MULTIVITAMIN TAB PO SCH (08:24)
[2022-02-02] MEDS: FERROUS SULFATE 325 MG TAB PO SCH (08:24)
[2022-02-02] MEDS: ACETAMINOPHEN 325 MG TAB PO PRN (08:32)
[2022-02-02] MEDS: CHOLECALCIFEROL 5,000 UNITS 125 MCG TAB PO SCH (09:50)
[2022-02-02] MEDS: VALSARTAN 80 MG TAB PO SCH (09:54)
[2022-02-02] MEDS: SODIUM CHLORIDE 0.9% 1000ML 1,000 ML IV SCH (09:54)
[2022-02-02] MEDS ORDERED: WARFARIN SOD 1 MG TAB PO SCH (16:00)
--- NOTE | 2022-02-02 18:06 | Hospitalist Progress Note ---
Date of Service February 02, 2022 Assessment & Plan (1) Closed fracture of left hip: (2) Rapid atrial fibrillation: Plan: 86-year-old lady with PMH of HFpEF [2012 TTE 55% EF], CAD, PVD status post surgery, A. fib on Coumadin, HTN, GERD and past tobacco abuse presented 01/30 for ED secondary to mechanical fall at home landing on her left hip. She was found to be in A. fib RVR at presentation. She is being managed for the following: #. A. fib RVR #. Left hip fracture Patient presented 01/31 secondary to mechanical fall, landing on left hip. In the ED patient was found to be in A. fib with RVR and left hip fracture Admitting x-ray left hip:Nondisplaced intertrochanteric fracture of the left femoral neck. Admitting CXR: No acute findings. Afib rvr 2/ acute condition. Heart rate under control, cardiology evaluated, acceptable cardiac risk for surgery. 02/01: Intramedullary nail fixation left hip (Left) - Levon Loyola, DO PT/OT, Pain Control, DVT Px per Ortho. Incentive spirometry. DC ivf when eating good. Resumed home warfarin 02/01. DC subcut lovenox when INR closer to 2.0 f/u ortho in 2 weeks, likely need placement. Will need coumadin clinic f/u as oP. #. Other chronic medical conditions: HTN, chronic diastolic heart failure, CAD/PVD status post surgery, GERD, prediabetes Continue with/resume home meds as and when appropriate Caution with blood pressure medication especially perioperative. Lifestyle modification for prediabetes. DVT prophylaxis. SCDs if INR less than 2 while Coumadin on hold Full code Patient daughter Ms. Mine Ballard, contact #[phone]. Text document was generated using voice recognition software. It may contain grammatical or spelling errors. Kindly contact undersigned for clarification of any documentation item in question. Admission and Anticipated Discharge Date Admission Date: January 30, 2022 Subjective Patient seen and examined at bedside as a follow-up of A. fib RVR and left hip fracture secondary to mechanical fall. Patient was lying in bed, on room air, NAD, reports no new acute events overnight. Pt is s/p left hip repair 02/01, reports pain under control w/ pain meds, working w/ PT. Pt moving gas. Patient denies any headache/dizziness. Patient denies any chest pain/palpitation/belly pain/other review of symptoms. Physical Exam Physical Exam: GENERAL: Alert and oriented x3. NAD, on RA. HEENT: No pallor, no icterus. Pupils equal, round and reactive to light. Oral mucosa moist. NECK: No JVD, no neck masses. HEART: S1 and S2 heard. irregular rate and rhythm. No murmur, no gallop. RESPIRATORY SYSTEM: Normal AP diameter. No accessory muscle use. No wheezing, no crackles. ABDOMEN: Soft, bowel sounds present, nontender, no distention. CENTRAL NERVOUS SYSTEM: No facial droop. Speech is clear. Obeys simple commands. Moves extremities. EXTREMITIES: RLE 1+ edema, LLE trace edema, no erythema seen. Lt hip dressing noted. Results & Data Results & Data ([facility]) Vital Signs (Past 12 Hours) Vital Signs Temp Pulse Pulse Resp BP Pulse Ox 02/02/22 15:57 36.9 C 70 18 114/66 98 02/02/22 14:20 89 02/02/22 12:16 36.7 C 74 18 102/63 94 02/02/22 08:23 106 H 99/64 L 02/02/22 07:56 36.9 C 66 18 91/62 L 96 02/02/22 06:15 108 H (1) Closed fracture of left hip Encounter type: initial encounter Qualified Code(s): S72.002A - Fracture of unspecified part of neck of left femur, initial encounter for closed fracture
[2022-02-02] MEDS: MoRPHine SULFATE 2 MG/ML CARP IV PRN (18:25)
[2022-02-02] MEDS: ATORVASTATIN 40 MG TAB PO SCH (21:10)
[2022-02-02] MEDS: METOPROLOL SUCC 50MG EXT REL TAB PO SCH (21:10)
[2022-02-03] MEDS: SODIUM CHLORIDE 0.9% 1000ML 1,000 ML IV SCH (00:41)
[2022-02-03] MEDS: MoRPHine SULFATE 2 MG/ML CARP IV PRN ×2 (02:22→20:55)
[2022-02-03 06:08] LABS: Hematocrit (blood only) 26.3 % (37-47); Hemoglobin 8.3 g/dL (12.0-16.0); Mean Corpuscular Hemoglobin 26.3 pg (25-34); Mean Corpuscular Hgb Conc 31.6 g/dL (32-36); Mean Corpuscular Volume 83.5 fL (80-100); Mean Platelet Volume 9.7 fL (7.4-10.4); Platelet Count 196 K/uL (130-400); RDW Coefficient of Variation 14.5 % (11.5-14.5); RDW Standard Deviation 43.7 fL (36.4-46.3); Red Blood Count 3.15 M/uL (4.2-5.4); White Blood Count 13.32 K/uL (4.8-10.8)
[2022-02-03 06:18] LABS: INR 1.4 (0.9-1.1); Prothrombin Time 14.4 Seconds (9.0-12.0)
[2022-02-03 06:38] LABS: BUN Creatinine Ratio 28.1 (10-20); Calcium 8.3 mg/dl (8.5-10.1); Creatinine Clr Calc Pharmacy 40.7 ml/min; Est GFR (African American) 50.4 ml/min; Est GFR (Non-African American) 43.5 ml/min; Magnesium 2.1 mg/dl (1.7-2.4); Potassium 5.2 mmol/L (3.5-5.1)
--- NOTE | 2022-02-03 07:20 | Ultrasound Report ---
LEFT LOWER EXTREMITY VENOUS DOPPLER HISTORY: Left leg discomfort. COMPARISON STUDY: None. FINDINGS: There is normal compressibility, flow, and augmentation within the left lower extremity marquez p venous system. IMPRESSION: No DVT within the left lower extremity. ACT 112: Negative or not required by law. Electronically signed by: Kwaku Kee M.D. 02/03/2022 7:19 AM
[2022-02-03] MEDS: FERROUS SULFATE 325 MG TAB PO SCH (08:28)
[2022-02-03] MEDS: CHOLECALCIFEROL 5,000 UNITS 125 MCG TAB PO SCH (08:28)
[2022-02-03] MEDS: ENOXAPARIN INJ 40 MG/0.4 ML SYR SQ SCH (08:28)
[2022-02-03] MEDS: allopurinoL 100 MG TAB PO SCH (08:28)
[2022-02-03] MEDS: MULTIVITAMIN TAB PO SCH (08:28)
[2022-02-03] MEDS: VALSARTAN 80 MG TAB PO SCH (08:29)
[2022-02-03] MEDS: oxyCODONE HCL IR 5 MG TAB (IMMEDIATE RELEASE) PO PRN ×2 (10:55→18:15)
[2022-02-03] MEDS ORDERED: FUROSEMIDE 40 MG TAB PO ONE (12:00)
--- NOTE | 2022-02-03 13:12 | Orthopedic Progress Note ---
Date of Service February 03, 2022 Assessment & Plan (1) Closed fracture of left hip: Overall she is doing about as well as expected. She is participating with physical therapy. She is on Coumadin for DVT prophylaxis and currently being bridged with Lovenox. Her INR is 1.4. She can have daily dry dressing changes at this point. She is orthopedically stable for discharge when medically ready. She will follow-up with orthopedics in 2 weeks. Full orthopedic discharge instructions were placed in the discharge summary. Please call or [place] text me if you have any questions. Subjective Bria was seen and examined at bedside this morning. Overall she is doing fairly well. She is not much pain in the left hip. She was able to ambulate about 12 feet yesterday with physical therapy. She has no new complaints. . Review of Systems All systems reviewed & are unremarkable except as noted in HPI & below. Physical Exam On physical examination of the left hip, the dressings are clean and dry. She has active dorsiflexion and plantarflexion of her left ankle. . Results & Data Results & Data Laboratory Results . Diagnostic Findings . PG Care Time/CCT Total # of Minutes Spent Total Time Spent with Patient: Total time spent is greater than 50% in coordination of care (as documented) at patient's floor/unit and/or counseling patient: Coding Level of Care Code 06463 Post Operative Follow-Up Diagnoses Closed fracture of left hip S72.002A Encounter type: initial encounter (1) Closed fracture of left hip Encounter type: initial encounter Qualified Code(s): S72.002A - Fracture of unspecified part of neck of left femur, initial encounter for closed fracture
[2022-02-03 16:20] LABS: BUN Creatinine Ratio 30.6 (10-20); Calcium 8.4 mg/dl (8.5-10.1); Creatinine Clr Calc Pharmacy 41.8 ml/min; Est GFR (African American) 52.1 ml/min; Est GFR (Non-African American) 44.9 ml/min; Potassium 4.9 mmol/L (3.5-5.1)
[2022-02-03] MEDS: WARFARIN SOD 2 MG TAB PO SCH (16:47)
--- NOTE | 2022-02-03 17:53 | Hospitalist Progress Note ---
Date of Service February 03, 2022 Assessment & Plan (1) Closed fracture of left hip: (2) Rapid atrial fibrillation: Plan: 86-year-old lady with PMH of HFpEF [2012 TTE 55% EF], CAD, PVD status post surgery, A. fib on Coumadin, HTN, GERD and past tobacco abuse presented 01/30 for ED secondary to mechanical fall at home landing on her left hip. She was found to be in A. fib RVR at presentation. She is being managed for the following: #. A. fib RVR #. Left hip fracture #. Acute blood loss anemia: likely postoperative, f/u Hb daily and prn. Patient presented 01/31 secondary to mechanical fall, landing on left hip. In the ED patient was found to be in A. fib with RVR and left hip fracture Admitting x-ray left hip:Nondisplaced intertrochanteric fracture of the left femoral neck. Admitting CXR: No acute findings. Afib rvr 2/2 acute condition. Heart rate under control, cardiology evaluated, acceptable cardiac risk for surgery. 02/01: Intramedullary nail fixation left hip (Left) - Levon Loyola, DO PT/OT, Pain Control, DVT Px per Ortho. Incentive spirometry. DC ivf. Resumed home warfarin 02/01. DC subcut lovenox when INR closer to 2.0 f/u ortho in 2 weeks, likely need placement. Will need coumadin clinic f/u as oP. #. Other chronic medical conditions: HTN, chronic diastolic heart failure, CAD/PVD status post surgery, GERD, prediabetes Continue with/resume home meds as and when appropriate Caution with blood pressure medication especially perioperative. Lifestyle modification for prediabetes. Lasix prn for swelling. Pt's appetite not very good, Increase protein intake, f/u sodium level, fluid restriction 1.5L and low sodium diet/ DVT prophylaxis. lovenox sc until INR closer to 2.0, on coumadin as well. likely DC lovenox julio. Full code Patient daughter Ms. Mine Ballard, contact #[phone]. Text document was generated using voice recognition software. It may contain gra mmatical or spelling errors. Kindly contact undersigned for clarification of any documentation item in question. Admission and Anticipated Discharge Date Admission Date: January 30, 2022 Subjective Patient seen and examined at bedside as a follow-up of A. fib RVR and left hip fracture secondary to mechanical fall. Patient was sitting up in chair, on room air, NAD, reports no new acute events overnight. Pt is s/p left hip repair 02/01, reports pain under control w/ pain meds, working w/ PT. Pt moving gas. Patient denies any headache/dizziness. Patient denies any chest pain/palpitation/belly pain/other review of symptoms. Physical Exam Physical Exam: GENERAL: Alert and oriented x3. NAD, on RA. HEENT: No pallor, no icterus. Pupils equal, round and reactive to light. Oral mucosa moist. NECK: No JVD, no neck masses. HEART: S1 and S2 heard. irregular rate and rhythm. No murmur, no gallop. RESPIRATORY SYSTEM: Normal AP diameter. No accessory muscle use. No wheezing, no crackles. ABDOMEN: Soft, bowel sounds present, nontender, no distention. CENTRAL NERVOUS SYSTEM: No facial droop. Speech is clear. Obeys simple commands. Moves extremities. EXTREMITIES: BLE 1+ edema, no erythema seen. Lt hip dressing noted. Results & Data Results & Data ([facility]) Vital Signs (Past 12 Hours) Vital Signs Temp Pulse Pulse Resp BP BP Pulse Ox 02/03/22 15:00 79 02/03/22 11:54 37.0 C 78 20 91/54 L 94 02/03/22 08:07 37.4 C 90 20 116/72 94 02/03/22 08:00 85 (1) Closed fracture of left hip Encounter type: initial encounter Qualified Code(s): S72.002A - Fracture of unspecified part of neck of left femur, initial encounter for closed fracture
[2022-02-03] MEDS: ATORVASTATIN 40 MG TAB PO SCH (20:57)
[2022-02-03] MEDS: METOPROLOL SUCC 50MG EXT REL TAB PO SCH (21:06)
[2022-02-04] MEDS: oxyCODONE HCL IR 5 MG TAB (IMMEDIATE RELEASE) PO PRN ×3 (00:14→21:26)
[2022-02-04] MEDS: MoRPHine SULFATE 2 MG/ML CARP IV PRN (05:35)
[2022-02-04 06:27] LABS: Hematocrit (blood only) 26.1 % (37-47); Hemoglobin 8.4 g/dL (12.0-16.0); Mean Corpuscular Hemoglobin 26.9 pg (25-34); Mean Corpuscular Hgb Conc 32.2 g/dL (32-36); Mean Corpuscular Volume 83.7 fL (80-100); Mean Platelet Volume 9.8 fL (7.4-10.4); Platelet Count 217 K/uL (130-400); RDW Coefficient of Variation 14.3 % (11.5-14.5); RDW Standard Deviation 43.3 fL (36.4-46.3); Red Blood Count 3.12 M/uL (4.2-5.4); White Blood Count 12.14 K/uL (4.8-10.8)
[2022-02-04 06:28] LABS: INR 1.5 (0.9-1.1); Prothrombin Time 15.5 Seconds (9.0-12.0)
[2022-02-04 06:37] LABS: Calcium 8.4 mg/dl (8.5-10.1); Creatinine Clr Calc Pharmacy 43.3 ml/min; Est GFR (African American) 54.4 ml/min; Magnesium 2.1 mg/dl (1.7-2.4); Phosphorus 3.3 mg/dl (2.5-4.9)
[2022-02-04] MEDS: ENOXAPARIN INJ 40 MG/0.4 ML SYR SQ SCH (10:04)
[2022-02-04] MEDS: VALSARTAN 80 MG TAB PO SCH (10:05)
[2022-02-04] MEDS: allopurinoL 100 MG TAB PO SCH (10:06)
[2022-02-04] MEDS: CHOLECALCIFEROL 5,000 UNITS 125 MCG TAB PO SCH (10:06)
[2022-02-04] MEDS: MULTIVITAMIN TAB PO SCH (10:06)
[2022-02-04] MEDS: FERROUS SULFATE 325 MG TAB PO SCH (10:07)
[2022-02-04] MEDS: WARFARIN SOD 2 MG TAB PO SCH (16:04)
--- NOTE | 2022-02-04 16:29 | Hospitalist Progress Note ---
Date of Service February 04, 2022 Assessment & Plan (1) Closed fracture of left hip: Plan: 86-year-old lady with PMH of HFpEF [2012 TTE 55% EF], CAD, PVD status post surgery, A. fib on Coumadin, HTN, GERD and past tobacco abuse presented 01/30 for ED secondary to mechanical fall at home landing on her left hip. She was found to be in A. fib RVR at presentation. She is being managed for the following: Left hip fracture Acute blood loss anemia: likely postoperative, f/u Hb daily and prn. Patient presented 01/31 secondary to mechanical fall, landing on left hip. In the ED patient was found to be in A. fib with RVR and left hip fracture Admitting x-ray left hip:Nondisplaced intertrochanteric fracture of the left femoral neck. Admitting CXR: No acute findings. 02/01: Intramedullary nail fixation left hip (Left) - Levon Loyola, DO PT/OT, Pain Control, DVT Px per Ortho. Complains to have pain in the left hip with ambulation Remains generally weak Awaiting placement Incentive spirometry. f/u ortho in 2 weeks, likely need placement. (2) Rapid atrial fibrillation: Plan: A. fib RVR Afib rvr 2/ acute condition. Heart rate under control, cardiology evaluated, acceptable cardiac risk for surgery. Resumed home warfarin 02/01. DC subcut lovenox when INR closer to 2.0 Will need coumadin clinic f/u as oP. Plan: Other chronic medical conditions: HTN, chronic diastolic heart failure, CAD/PVD status post surgery, GERD, prediabetes Continue with/resume home meds as and when appropriate Caution with blood pressure medication especially perioperative. Lifestyle modification for prediabetes. Lasix prn for swelling. Pt's appetite not very good, Increase protein intake, f/u sodium level, fluid restriction 1.5L and low sodium diet/ Sodium level is 128-we will continue fluid restriction and monitor PRP DVT prophylaxis. lovenox sc until INR closer to 2.0, on coumadin as well. likely DC lovenox julio. Full code Patient daughter Ms. iMne Ballard, contact #[phone]. Admission and Anticipated Discharge Date Admission Date: January 30, 2022 Subjective 02/04/2022 The patient was seen and examined in telemetry unit She has been complaining of pain with activities and also generally weak and lethargic Her blood pressure was noted to be low at systolic below 100 with ambulation Denies any fever and or chills, no nausea and or vomiting Review of Systems Review of Systems: All systems reviewed and are unremarkable except as noted below Physical Exam Physical Exam: Lying in bed without any acute distress Constitutional: well developed, well nourished, + ill appearing and + obese Eyes: PERRL, conjunctivae normal, anicteric sclerae ENMT: external ear and nose normal, oropharynx normal Neck: trachea midline, no thyromegaly Respiratory: no respiratory distress Auscultation: + diminished lung sounds and + crackles (Minimal crackles at the bases) Cardiovascular: Rate/Rhythm: + irregularly irregular; not tachycardic Heart Sounds: normal S1 and normal S2; no murmur Extremities: + edema (Trace edema bilaterally) Gastrointestinal (Abdomen): Inspection/Auscultation: normal bowel sounds; abdomen not distended Percussion/Palpation: abdomen soft; abdomen nontender Musculoskeletal: No acute arthritis in any joint Neurologic: Alert, awake and oriented x3, generally very weak and lethargic Results & Data Results & Data ([facility]) Vital Signs (Past 12 Hours) Vital Signs Temp Pulse Resp BP Pulse Ox 02/04/22 15:31 36.9 C 86 17 99/67 L 98 02/04/22 12:02 37.0 C 102 H 20 91/58 L 94 02/04/22 07:34 36.9 C 89 16 110/74 96 Laboratory Results Short CBC 02/04/22 Range/Units 06:02 WBC 12.14 H (4.8-10.8) K/uL Hgb 8.4 L (12.0-16.0) g/dL Hct 26.1 L (37-47) % Plt Count 217 (130-400) K/uL BMP 02/04/22 06:02 Sodium 128 L Potassium 5.0 Chloride 96 L Carbon Dioxide 27 BUN 30 H Creatinine 1.07 Glucose 98 Calcium 8.4 L Medications Administered Current Inpatient Medications Acetaminophen (Acetaminophen 325 Mg Tab) 650 mg PO Q6H PRN PRN Reason: Fever/pain Stop: 03/01/22 22:46 Last Admin: 02/02/22 08:32 Dose: 650 mg Documented by: Allopurinol (Allopurinol 100 Mg Tab) 100 mg PO QAM [facility] Stop: 03/02/22 08:59 Last Admin: 02/04/22 10:06 Dose: 100 mg Documented by: Atorvastatin Calcium (Atorvastatin 40 Mg Tab) 40 mg PO QPM [facility] Stop: 03/02/22 00:14 Last Admin: 02/03/22 20:57 Dose: 40 mg Documented by: Bisacodyl (Bisacodyl 10 Mg Supp) 10 mg IN DAILY PRN PRN Reason: Constipation Stop: 03/01/22 23:44 Enoxaparin Sodium (Enoxaparin Inj 40 Mg/0.4 Ml Syr) 40 mg SQ QAM [facility] Stop: 03/04/22 08:59 Last Admin: 02/04/22 10:04 Dose: 40 mg Documented by: Ferrous Sulfate (Ferrous Sulfate 325 Mg Tab) 325 mg PO DAILY [facility] Stop: 03/02/22 08:59 Last Admin: 02/04/22 10:07 Dose: 325 mg Documented by: Promethazine HCl 12.5 mg/ (Sodium Chloride) 50.5 mls @ 202 mls/hr IV Q6H PRN PRN Reason: Nausea And Vomiting Stop: 03/01/22 22:46 Magnesium Hydroxide (Magnesium Hydroxide Susp 30 Ml Udc) 30 ml PO DAILY PRN PRN Reason: Constipation Stop: 03/01/22 23:44 Last Admin: 02/02/22 08:33 Dose: 30 ml Documented by: Metoprolol Succinate (Metoprolol Succ 50mg Ext Rel Tab) 50 mg PO HS [facility] Stop: 03/02/22 20:59 Last Admin: 02/03/22 21:06 Dose: 50 mg Documented by: Morphine Sulfate (Morphine Sulfate 2 Mg/Ml Carp) 2 mg IV Q3H PRN PRN Reason: Pain Stop: 02/13/22 22:46 Last Admin: 02/04/22 05:35 Dose: 2 mg Documented by: [facility]ivitamins ([facility]ivitamin Tab) [facility] Stop: 03/02/22 08:59 Last Admin: 02/04/22 10:06 Dose: 1 tab Documented by: Naloxone HCl (Naloxone Hcl 0.4 Mg/1 Ml Vial/Carp) 0.1 mg IV UD PRN PRN Reason: Opiate Overdose Stop: 03/01/22 23:44 Nitroglycerin (Nitroglycerin Sl 0.4 Mg/Tab Tab) 0.4 mg SL Q5M PRN PRN Reason: chest pain Stop: 03/01/22 23:44 Oxycodone HCl (Oxycodone Hcl Ir 5 Mg Tab (Immediate Release)) 5 mg PO Q4H PRN PRN Reason: Pain Stop: 02/13/22 22:46 Last Admin: 02/04/22 10:05 Dose: 5 mg Documented by: Valsartan (Valsartan 80 Mg Tab) 80 mg PO DAILY [facility] Stop: 03/02/22 08:59 Last Admin: 02/04/22 10:05 Dose: 80 mg Documented by: Vitamin D (Cholecalciferol 5,000 Units 125 Mcg Tab) 5,000 units PO QAM [facility] Stop: 02/16/22 09:01 Last Admin: 02/04/22 10:06 Dose: 5,000 units Documented by: Warfarin Sodium (Warfarin Sod 1 Mg Tab) 1 mg PO MoFr@1600 [facility] Stop: 03/04/22 15:59 Last Admin: 02/02/22 16:47 Dose: 1 mg Documented by: Warfarin Sodium (Warfarin Sod 2 Mg Tab) 2 mg PO SuTuWeThSa@1600 [facility] Stop: 03/03/22 19:59 Last Admin: 02/04/22 16:04 Dose: 2 mg Documented by: (1) Closed fracture of left hip Encounter type: initial encounter Qualified Code(s): S72.002A - Fracture of unspecified part of neck of left femur, initial encounter for closed fracture
[2022-02-04] MEDS: ATORVASTATIN 40 MG TAB PO SCH (20:24)
[2022-02-04] MEDS: METOPROLOL SUCC 50MG EXT REL TAB PO SCH (21:14)
[2022-02-05 07:32] LABS: Basophils # (auto) 0.02 K/uL (0-0.2); Basophils % (auto) 0.2 %; Hematocrit (blood only) 24.6 % (37-47); Hemoglobin 8.1 g/dL (12.0-16.0); Immature Granulocytes # (auto) 0.03 K/uL (0.00-0.02); Immature Granulocytes % (auto) 0.3 %; Lymphocytes # (auto) 1.33 K/uL (1.2-3.4); Lymphocytes % (auto) 13.3 %; Mean Corpuscular Hemoglobin 27.5 pg (25-34); Mean Corpuscular Hgb Conc 32.9 g/dL (32-36); Mean Corpuscular Volume 83.4 fL (80-100); Mean Platelet Volume 9.6 fL (7.4-10.4); Monocytes # (auto) 1.06 K/uL (0.11-0.59); Monocytes % (auto) 10.6 %; Neutrophils # (auto) 7.47 K/uL (1.4-6.5); Neutrophils % (auto) 74.6 %; Platelet Count 233 K/uL (130-400); RDW Coefficient of Variation 14.4 % (11.5-14.5); Red Blood Count 2.95 M/uL (4.2-5.4); White Blood Count 10.01 K/uL (4.8-10.8)
[2022-02-05 07:54] LABS: BUN Creatinine Ratio 31.8 (10-20); Calcium 8.4 mg/dl (8.5-10.1); Creatinine Clr Calc Pharmacy 52.3 ml/min; Est GFR (Non-African American) 59.5 ml/min; Magnesium 2.1 mg/dl (1.7-2.4); Potassium 4.8 mmol/L (3.5-5.1)
[2022-02-05] MEDS: oxyCODONE HCL IR 5 MG TAB (IMMEDIATE RELEASE) PO PRN ×2 (08:12→19:01)
[2022-02-05] MEDS: CHOLECALCIFEROL 5,000 UNITS 125 MCG TAB PO SCH (08:36)
[2022-02-05] MEDS: ENOXAPARIN INJ 40 MG/0.4 ML SYR SQ SCH (08:36)
[2022-02-05] MEDS: allopurinoL 100 MG TAB PO SCH (08:36)
[2022-02-05] MEDS: FERROUS SULFATE 325 MG TAB PO SCH (08:38)
[2022-02-05] MEDS: MULTIVITAMIN TAB PO SCH (08:38)
[2022-02-05] MEDS: VALSARTAN 80 MG TAB PO SCH (08:38)
[2022-02-05] MEDS ORDERED: DIGOXIN 250 MCG in SYRINGE 9 ML IV ONE (13:00)
[2022-02-05] MEDS: MoRPHine SULFATE 2 MG/ML CARP IV PRN (13:29)
[2022-02-05] MEDS: WARFARIN SOD 2 MG TAB PO SCH (15:38)
--- NOTE | 2022-02-05 16:24 | Cardiology Progress Note ---
Date of Service February 05, 2022 Assessment & Plan (1) Atrial fibrillation, permanent: (2) Anticoagulant long-term use: (3) CAD (coronary artery disease): (4) Hypotension: (5) Hyponatremia: (6) Anemia: Plan: ASSESSMENT/PLAN: 1. AFib with RVR: Appears to have permanent AFib. Recommend resuming her usual dose of beta-carlos beta-carlos has been held at times throughout this hospital stay and her last dose was on 02/03/2022. Recommend discontinuing valsartan to allow for increased blood pressure and beta-calros use which will likely give her more benefit at this time given her AFib with RVR. She is on long-term anticoagulation for stroke risk reduction. Monitor hemoglobin closely. Can titrate beta-carlos as necessary. Tachycardia likely due to lack of beta-carlos, overall stress from surgical procedure, pain, and anemia. 2. Hypotension: She has mostly normotensive but has episodes of mild hypotension and appears to be asymptomatic in that regard. Discontinue valsartan for now to allow for beta-carlos use as above. 3. Anemia: Hemoglobin dropped following surgical procedure, likely due to acute blood loss anemia. If hemoglobin continues to drop, may need to consider transfusion. Will defer management to primary service. 4. Hyponatremia: As per primary service. 5. CAD: No angina despite tachycardia and anemia. Continue beta-carlos and high-intensity statin therapy. 6. Disposition: For ongoing cardiology care while hospitalized, please contact Dr. Pimentel who will be rounding tomorrow or Dr. Deras, her primary client service professional. AFib plan of care communicated with Dr. Price of the primary hospitalist service. Admission and Anticipated Discharge Date Admission Date: January 30, 2022 Subjective I was contacted by Dr. Price of the hospitalist service to evaluate Ms. Deras due to AFib with RVR. She has occasional palpitations but is mostly asymptomatic. She denies lightheadedness, shortness of breath, chest pain, syncope, or bleeding. She has pain at her surgical site. She has been mildly hypotensive at times with systolic blood pressure in the 90s but otherwise has been normotensive. She has been receiving valsartan on a daily basis while metoprolol has been held at times, including 02/04/2022 evening dose and has not had any beta-carlos today. She received digoxin at 1:17 p.m. today with a total dose of 250 mcg IVC x1. Review of systems: As above. She was alone in her hospital room. Physical Exam Physical Exam: Gen.: No acute distress. Alert and oriented. HEENT: Anicteric sclera. Neck: No JVD. Cardiac: Irregularly irregular and tachycardic. Normal S1-S2. No murmurs, rubs, or gallops. Pulmonary: Clear to auscultation bilaterally without wheezes, rales, or rhonchi. Abdomen: Soft, nontender, nondistended, with normoactive bowel sounds. No bruits noted. Extremities: 2+ radial pulses bilaterally. Trace bilateral lower extremity edema. No cyanosis. Psychiatric: Affect appears appropriate. Results & Data ([facility]) Vital Signs (Past 12 Hours) Vital Signs Temp Pulse Pulse Resp BP Pulse Ox 02/05/22 13:17 112 H 02/05/22 12:33 36.7 C 109 H 18 93/61 L 98 02/05/22 07:40 36.8 C 102 H 16 108/66 97 Laboratory Results Laboratory Results - last 24 hr 02/05/22 02/05/22 06:47 06:47 WBC 10.01 RBC 2.95 L Hgb 8.1 L Hct 24.6 L MCV 83.4 MCH 27.5 MCHC 32.9 RDW Std Deviation 44.0 RDW Coeff of Marcell[place] 14.4 Plt Count 233 MPV 9.6 Immature Gran % (Auto) 0.3 Neut % (Auto) 74.6 Lymph % (Auto) 13.3 [place] % (Auto) 10.6 Eos % (Auto) 1.0 Baso % (Auto) 0.2 Neut # (Auto) 7.47 H Lymph # (Auto) 1.33 [place] # (Auto) 1.06 H Eos # (Auto) 0.10 Baso # (Auto) 0.02 Immature Gran # (Auto) 0.03 H Sodium 129 L Potassium 4.8 Chloride 97 L Carbon Dioxide 27 Anion Gap 5 BUN 28 H Creatinine 0.88 Est Cr Clr Drug Dosing 52.3 Est GFR ( Amer) 69.0 Est GFR (Non-Af Amer) 59.5 BUN/Creatinine Ratio 31.8 H Glucose 96 Calcium 8.4 L Magnesium 2.1 Diagnostic Findings Telemetry personally reviewed: Atrial fibrillation with rapid ventricular response. Medications Administered Current Inpatient Medications Acetaminophen (Acetaminophen 325 Mg Tab) 650 mg PO Q6H PRN PRN Reason: Fever/pain Stop: 03/01/22 22:46 Last Admin: 02/02/22 08:32 Dose: 650 mg Documented by: Allopurinol (Allopurinol 100 Mg Tab) 100 mg PO QAM [facility] Stop: 03/02/22 08:59 Last Admin: 02/05/22 08:36 Dose: 100 mg Documented by: Atorvastatin Calcium (Atorvastatin 40 Mg Tab) 40 mg PO QPM [facility] Stop: 03/02/22 00:14 Last Admin: 02/04/22 20:24 Dose: 40 mg Documented by: Bisacodyl (Bisacodyl 10 Mg Supp) 10 mg IN DAILY PRN PRN Reason: Constipation Stop: 03/01/22 23:44 Enoxaparin Sodium (Enoxaparin Inj 40 Mg/0.4 Ml Syr) 40 mg SQ QAM [facility] Stop: 03/04/22 08:59 Last Admin: 02/05/22 08:36 Dose: 40 mg Documented by: Ferrous Sulfate (Ferrous Sulfate 325 Mg Tab) 325 mg PO DAILY [facility] Stop: 03/02/22 08:59 Last Admin: 02/05/22 08:38 Dose: 325 mg Documented by: Promethazine HCl 12.5 mg/ (Sodium Chloride) 50.5 mls @ 202 mls/hr IV Q6H PRN PRN Reason: Nausea And Vomiting Stop: 03/01/22 22:46 Last Infusion: 02/05/22 08:41 Dose: Infused Documented by: Magnesium Hydroxide (Magnesium Hydroxide Susp 30 Ml Udc) 30 ml PO DAILY PRN PRN Reason: Constipation Stop: 03/01/22 23:44 Last Admin: 02/02/22 08:33 Dose: 30 ml Documented by: Metoprolol Succinate (Metoprolol Succ 50mg Ext Rel Tab) 50 mg PO HS [facility] Stop: 03/02/22 20:59 Last Admin: 02/04/22 21:14 Dose: Not Given Documented by: Morphine Sulfate (Morphine Sulfate 2 Mg/Ml Carp) 2 mg IV Q3H PRN PRN Reason: Pain Stop: 02/13/22 22:46 Last Admin: 02/05/22 13:29 Dose: 2 mg Documented by: Multivitamins (Multivitamin Tab) 1 tab PO QAM [facility] Stop: 03/02/22 08:59 Last Admin: 02/05/22 08:38 Dose: 1 tab Documented by: Naloxone HCl (Naloxone Hcl 0.4 Mg/1 Ml Vial/Carp) 0.1 mg IV UD PRN PRN Reason: Opiate Overdose Stop: 03/01/22 23:44 Nitroglycerin (Nitroglycerin Sl 0.4 Mg/Tab Tab) 0.4 mg SL Q5M PRN PRN Reason: chest pain Stop: 03/01/22 23:44 Oxycodone HCl (Oxycodone Hcl Ir 5 Mg Tab (Immediate Release)) 5 mg PO Q4H PRN PRN Reason: Pain Stop: 02/13/22 22:46 Last Admin: 02/05/22 08:12 Dose: 5 mg Documented by: Vitamin D (Cholecalciferol 5,000 Units 125 Mcg Tab) 5,000 units PO [facility] Stop: 02/16/22 09:01 Last Admin: 02/05/22 08:36 Dose: 5,000 units Documented by: Warfarin Sodium (Warfarin Sod 1 Mg Tab) 1 mg PO MoFr@1600 [facility] Stop: 03/04/22 15:59 Last Admin: 02/02/22 16:47 Dose: 1 mg Documented by: Warfarin Sodium (Warfarin Sod 2 Mg Tab) 2 mg PO SuTuWeThSa@1600 [facility] Stop: 03/03/22 19:59 Last Admin: 02/05/22 15:38 Dose: 2 mg Documented by: PG Care Time/CCT Total # of Minutes Spent Total Time Spent with Patient: Total time spent is greater than 50% in coordination of care (as documented) at patient's floor/unit and/or counseling patient: Coding Level of Care Code 92080 Subseq Hosp Care Lvl 3 Diagnoses Atrial fibrillation, permanent I48.21 Anticoagulant long-term use Z79.01 CAD (coronary artery disease) I25.10 Hypotension I95.9 Hyponatremia E87.1 Anemia D64.9
--- NOTE | 2022-02-05 16:37 | Hospitalist Progress Note ---
Date of Service February 05, 2022 Assessment & Plan (1) Closed fracture of left hip: Plan: 86-year-old lady with PMH of HFpEF [2012 TTE 55% EF], CAD, PVD status post surgery, A. fib on Coumadin, HTN, GERD and past tobacco abuse presented 01/30 for ED secondary to mechanical fall at home landing on her left hip. She was found to be in A. fib RVR at presentation. She is being managed for the following: Left hip fracture Acute blood loss anemia: likely postoperative, f/u Hb daily and prn. Patient presented 01/31 secondary to mechanical fall, landing on left hip. In the ED patient was found to be in A. fib with RVR and left hip fracture Admitting x-ray left hip:Nondisplaced intertrochanteric fracture of the left femoral neck. Admitting CXR: No acute findings. 02/01: Intramedullary nail fixation left hip (Left) - Levno Loyola, DO PT/OT, Pain Control, DVT Px per Ortho. Complains to have pain in the left hip with ambulation Remains generally weak Awaiting placement Incentive spirometry. f/u ortho in 2 weeks, likely need placement. Hemoglobin remains stable at 8.1 Hypotension Asymptomatic at rest and with ambulation Will discontinue losartan And continue with beta-carlos (2) Rapid atrial fibrillation: Plan: A. fib RVR Afib rvr 2/ acute condition. Heart rate under control, cardiology evaluated, acceptable cardiac risk for surgery. Resumed home warfarin 02/01. DC subcut lovenox when INR closer to 2.0 Will need coumadin clinic f/u as oP. She has been off beta-carlos since since admission only 1 dose was given on Heart rate are noted to be high likely secondary to withdrawal from beta-carlos and atrial fibrillation Appreciate cardiology input and recommendation Will discontinue losartan and administer beta-carlos to control the heart rate and blood pressure Plan: Other chronic medical conditions: HTN, chronic diastolic heart failure, CAD/PVD status post surgery, GERD, prediabetes Continue with/resume home meds as and when appropriate Caution with blood pressure medication especially perioperative. Lifestyle modification for prediabetes. Lasix prn for swelling. Pt's appetite not very good, Increase protein intake, f/u sodium level, fluid restriction 1.5L and low sodium diet/ Sodium level is 128-we will continue fluid restriction and monitor PRP Check PRP tomorrow DVT prophylaxis. lovenox sc until INR closer to 2.0, on coumadin as well. likely DC lovenox julio. Full code Patient daughter Ms. Mine Ballard, contact #[phone]. Admission and Anticipated Discharge Date Admission Date: January 30, 2022 Subjective 02/04/2022 The patient was seen and examined in telemetry unit She has been complaining of pain with activities and also generally weak and lethargic Her blood pressure was noted to be low at systolic below 100 with ambulation Denies any fever and or chills, no nausea and or vomiting 02/05/2022 The patient was seen and examined in telemetry unit She remains weak and lethargic and has pain with movement She was noted to be tachycardic at rest and 100 and the tachycardia goes up to 150s to 160s with ambulation Her blood pressure remains low at less than 100 systolic Denies any chest pain and/or palpitation Review of Systems Review of Systems: All systems reviewed and are unremarkable except as noted below Physical Exam Physical Exam: Lying in bed without any acute distress Constitutional: well developed, well nourished, + ill appearing and + obese Eyes: PERRL, conjunctivae normal, anicteric sclerae ENMT: external ear and nose normal, oropharynx normal Neck: trachea midline, no thyromegaly Respiratory: no respiratory distress Auscultation: + diminished lung sounds and + crackles (Minimal crackles at the bases) Cardiovascular: Rate/Rhythm: + irregularly irregular; not tachycardic Heart Sounds: normal S1 and normal S2; no murmur Extremities: + edema (Trace edema bilaterally) Gastrointestinal (Abdomen): Inspection/Auscultation: normal bowel sounds; abdomen not distended Percussion/Palpation: abdomen soft; abdomen nontender Musculoskeletal: No acute arthritis in any joint Neurologic: Alert, awake and oriented x3. Generally weak but no focal neurodeficit Results & Data Results & Data ([facility]) Vital Signs (Past 12 Hours) Vital Signs Temp Pulse Pulse Resp BP Pulse Ox 02/05/22 13:17 112 H 02/05/22 12:33 36.7 C 109 H 18 93/61 L 98 02/05/22 07:40 36.8 C 102 H 16 108/66 97 Laboratory Results Short CBC 02/05/22 Range/Units 06:47 WBC 10.01 (4.8-10.8) K/uL Hgb 8.1 L (12.0-16.0) g/dL Hct 24.6 L (37-47) % Plt Count 233 (130-400) K/uL BMP 02/05/22 06:47 Sodium 129 L Potassium 4.8 Chloride 97 L Carbon Dioxide 27 BUN 28 H Creatinine 0.88 Glucose 96 Calcium 8.4 L Medications Administered Current Inpatient Medications Acetaminophen (Acetaminophen 325 Mg Tab) 650 mg PO Q6H PRN PRN Reason: Fever/pain Stop: 03/01/22 22:46 Last Admin: 02/02/22 08:32 Dose: 650 mg Documented by: Allopurinol (Allopurinol 100 Mg Tab) 100 mg PO QAM RICK Stop: 03/02/22 08:59 Last Admin: 02/05/22 08:36 Dose: 100 mg Documented by: Atorvastatin Calcium (Atorvastatin 40 Mg Tab) 40 mg PO QPM [facility] Stop: 03/02/22 00:14 Last Admin: 02/04/22 20:24 Dose: 40 mg Documented by: Bisacodyl (Bisacodyl 10 Mg Supp) 10 mg FL DAILY PRN PRN Reason: Constipation Stop: 03/01/22 23:44 Enoxaparin Sodium (Enoxaparin Inj 40 Mg/0.4 Ml Syr) 40 mg SQ QAM [facility] Stop: 03/04/22 08:59 Last Admin: 02/05/22 08:36 Dose: 40 mg Documented by: Ferrous Sulfate (Ferrous Sulfate 325 Mg Tab) 325 mg PO DAILY [facility] Stop: 03/02/22 08:59 Last Admin: 02/05/22 08:38 Dose: 325 mg Documented by: Promethazine HCl 12.5 mg/ (Sodium Chloride) 50.5 mls @ 202 mls/hr IV Q6H PRN PRN Reason: Nausea And Vomiting Stop: 03/01/22 22:46 Last Infusion: 02/05/22 08:41 Dose: Infused Documented by: Magnesium Hydroxide (Magnesium Hydroxide Susp 30 Ml Udc) 30 ml PO DAILY PRN PRN Reason: Constipation Stop: 03/01/22 23:44 Last Admin: 02/02/22 08:33 Dose: 30 ml Documented by: Metoprolol Succinate (Metoprolol Succ 50mg Ext Rel Tab) 50 mg PO HS [facility] Stop: 03/02/22 20:59 Last Admin: 02/04/22 21:14 Dose: Not Given Documented by: Morphine Sulfate (Morphine Sulfate 2 Mg/Ml Carp) 2 mg IV Q3H PRN PRN Reason: Pain Stop: 02/13/22 22:46 Last Admin: 02/05/22 13:29 Dose: 2 mg Documented by: Multivitamins (Multivitamin Tab) 1 tab PO [facility] Stop: 03/02/22 08:59 Last Admin: 02/05/22 08:38 Dose: 1 tab Documented by: Naloxone HCl (Naloxone Hcl 0.4 Mg/1 Ml Vial/Carp) 0.1 mg IV UD PRN PRN Reason: Opiate Overdose Stop: 03/01/22 23:44 Nitroglycerin (Nitroglycerin Sl 0.4 Mg/Tab Tab) 0.4 mg SL Q5M PRN PRN Reason: chest pain Stop: 03/01/22 23:44 Oxycodone HCl (Oxycodone Hcl Ir 5 Mg Tab (Immediate Release)) 5 mg PO Q4H PRN PRN Reason: Pain Stop: 02/13/22 22:46 Last Admin: 02/05/22 08:12 Dose: 5 mg Documented by: Vitamin D (Cholecalciferol 5,000 Units 125 Mcg Tab) 5,000 units PO [facility] Stop: 02/16/22 09:01 Last Admin: 02/05/22 08:36 Dose: 5,000 units Documented by: Warfarin Sodium (Warfarin Sod 1 Mg Tab) 1 mg PO [id number] [facility] Stop: 03/04/22 15:59 Last Admin: 02/02/22 16:47 Dose: 1 mg Documented by: Warfarin Sodium (Warfarin Sod 2 Mg Tab) 2 mg PO [id number]@1600 [facility] Stop: 03/03/22 19:59 Last Admin: 02/05/22 15:38 Dose: 2 mg Documented by: (1) Closed fracture of left hip Encounter type: initial encounter Qualified Code(s): S72.002A - Fracture of unspecified part of neck of left femur, initial encounter for closed fracture
[2022-02-05] MEDS: METOPROLOL SUCC 50MG EXT REL TAB PO SCH (20:18)
[2022-02-05] MEDS: ATORVASTATIN 40 MG TAB PO SCH (20:18)
[2022-02-06 06:21] LABS: Basophils # (auto) 0.03 K/uL (0-0.2); Basophils % (auto) 0.3 %; Eosinophils # (auto) 0.16 K/uL (0-0.5); Eosinophils % (auto) 1.5 %; Hemoglobin 8.2 g/dL (12.0-16.0); Immature Granulocytes # (auto) 0.06 K/uL (0.00-0.02); Immature Granulocytes % (auto) 0.6 %; Mean Corpuscular Hemoglobin 26.3 pg (25-34); Mean Corpuscular Hgb Conc 31.5 g/dL (32-36); Mean Corpuscular Volume 83.3 fL (80-100); Mean Platelet Volume 9.5 fL (7.4-10.4); Monocytes # (auto) 1.28 K/uL (0.11-0.59); Monocytes % (auto) 11.8 %; Neutrophils # (auto) 8.04 K/uL (1.4-6.5); Neutrophils % (auto) 73.8 %; Platelet Count 283 K/uL (130-400); RDW Coefficient of Variation 14.5 % (11.5-14.5); Red Blood Count 3.12 M/uL (4.2-5.4); White Blood Count 10.87 K/uL (4.8-10.8)
[2022-02-06 06:57] LABS: BUN Creatinine Ratio 28.6 (10-20); Calcium 8.4 mg/dl (8.5-10.1); Est GFR (African American) 66.2 ml/min; Est GFR (Non-African American) 57.1 ml/min; Potassium 4.8 mmol/L (3.5-5.1)
[2022-02-06] MEDS: oxyCODONE HCL IR 5 MG TAB (IMMEDIATE RELEASE) PO PRN (07:44)
[2022-02-06] MEDS: ENOXAPARIN INJ 40 MG/0.4 ML SYR SQ SCH (08:40)
[2022-02-06] MEDS: FERROUS SULFATE 325 MG TAB PO SCH (08:40)
[2022-02-06] MEDS: allopurinoL 100 MG TAB PO SCH (08:40)
[2022-02-06] MEDS: CHOLECALCIFEROL 5,000 UNITS 125 MCG TAB PO SCH (08:40)
[2022-02-06] MEDS: MULTIVITAMIN TAB PO SCH (08:40)
[2022-02-06] MEDS: MoRPHine SULFATE 2 MG/ML CARP IV PRN (09:55)
[2022-02-06 10:18] LABS: INR 2.2 (0.9-1.1); Prothrombin Time 22.9 Seconds (9.0-12.0)
--- NOTE | 2022-02-06 10:54 | Hospitalist Progress Note ---
Date of Service February 06, 2022 Assessment & Plan (1) Closed fracture of left hip: Plan: 86-year-old lady with PMH of HFpEF [2012 TTE 55% EF], CAD, PVD status post surgery, A. fib on Coumadin, HTN, GERD and past tobacco abuse presented 01/30 for ED secondary to mechanical fall at home landing on her left hip. She was found to be in A. fib RVR at presentation. She is being managed for the following: Left hip fracture Acute blood loss anemia: likely postoperative, f/u Hb daily and prn. Patient presented 01/31 secondary to mechanical fall, landing on left hip. In the ED patient was found to be in A. fib with RVR and left hip fracture Admitting x-ray left hip:Nondisplaced intertrochanteric fracture of the left femoral neck. Admitting CXR: No acute findings. 02/01: Intramedullary nail fixation left hip (Left) - Levon Loyola, DO PT/OT, Pain Control, DVT Px per Ortho. Complains to have pain in the left hip with ambulation Remains generally weak Awaiting placement Incentive spirometry. f/u ortho in 2 weeks, likely need placement. Hemoglobin remains stable at 8.1 She will be transferred to [facility] this afternoon for continued physical therapy and rehab Hypotension Asymptomatic at rest and with ambulation Will discontinue losartan And continue with beta-carlos Blood pressure remains stable and is more than 100 systolic (2) Rapid atrial fibrillation: Plan: A. fib RVR Afib rvr 2/2 acute condition. Heart rate under control, cardiology evaluated, acceptable cardiac risk for surgery. Resumed home warfarin 02/01. DC subcut lovenox when INR closer to 2.0 Will need coumadin clinic f/u as oP. She has been off beta-carlos since since admission only 1 dose was given on Heart rate are noted to be high likely secondary to withdrawal from beta-carlos and atrial fibrillation Appreciate cardiology input and recommendation Will discontinue losartan and administer beta-carlos to control the heart rate and blood pressure Received metoprolol succinate last evening and the heart rate remains below 100 this morning She will be discharged to [facility] this afternoon on beta-carlos Plan: Other chronic medical conditions: HTN, chronic diastolic heart failure, CAD/PVD status post surgery, GERD, prediabetes Continue with/resume home meds as and when appropriate Caution with blood pressure medication especially perioperative. Lifestyle modification for prediabetes. Lasix prn for swelling. Pt's appetite not very good, Increase protein intake, f/u sodium level, fluid restriction 1.5L and low sodium diet/ Sodium level is 128-we will continue fluid restriction and monitor PRP Check PRP tomorrow-Sodium remais borderline low at 128 DVT prophylaxis. lovenox sc until INR closer to 2.0, on coumadin as well. likely DC lovenox julio. INR is 2.2 today Continue Coumadin Full code Patient daughter Ms. Mine Ballard, contact #[phone]. Will be discharged to [facility] this afternoon Admission and Anticipated Discharge Date Admission Date: January 30, 2022 Subjective 02/04/2022 The patient was seen and examined in telemetry unit She has been complaining of pain with activities and also generally weak and lethargic Her blood pressure was noted to be low at systolic below 100 with ambulation Denies any fever and or chills, no nausea and or vomiting 02/05/2022 The patient was seen and examined in telemetry unit She remains weak and lethargic and has pain with movement She was noted to be tachycardic at rest and 100 and the tachycardia goes up to 150s to 160s with ambulation Her blood pressure remains low at less than 100 systolic Denies any chest pain and/or palpitation 02/06/2022 The patient was seen and examined in telemetry unit She has been feeling much better today though remains weak Still complains pain in the left knee with ambulation Her heart rate seems to be stable Review of Systems Review of Systems: All systems reviewed and are unremarkable except as noted below Physical Exam Physical Exam: Lying in bed without any acute distress Constitutional: well developed, well nourished, + ill appearing and + obese Eyes: PERRL, conjunctivae normal, anicteric sclerae ENMT: external ear and nose normal, oropharynx normal Neck: trachea midline, no thyromegaly Respiratory: no respiratory distress Auscultation: + diminished lung sounds and + crackles (Minimal crackles at the bases) Cardiovascular: Rate/Rhythm: + irregularly irregular; not tachycardic Heart Sounds: normal S1 and normal S2; no murmur Extremities: + edema (Trace edema bilaterally) Gastrointestinal (Abdomen): Inspection/Auscultation: normal bowel sounds; abdomen not distended Percussion/Palpation: abdomen soft; abdomen nontender Musculoskeletal: Left knee pain with movement Neurologic: normal touch/pain/proprioception and moves all extremities Lymphatic: no cervical or axillary lymphadenopathy Results & Data Results & Data ([facility]) Vital Signs (Past 12 Hours) Vital Signs Temp Pulse Pulse Resp BP Pulse Ox 02/06/22 07:50 36.8 C 87 19 106/64 98 02/06/22 03:48 36.7 C 90 16 100/66 96 02/05/22 23:26 36.9 C 94 H 18 103/69 98 02/05/22 22:58 92 H Laboratory Results Short CBC 02/06/22 Range/Units 05:39 WBC 10.87 H (4.8-10.8) K/uL Hgb 8.2 L (12.0-16.0) g/dL Hct 26.0 L (37-47) % Plt Count 283 (130-400) K/uL BMP 02/06/22 05:39 Sodium 128 L Potassium 4.8 Chloride 96 L Carbon Dioxide 28 BUN 26 H Creatinine 0.91 Glucose 99 Calcium 8.4 L Medications Administered Current Inpatient Medications Acetaminophen (Acetaminophen 325 Mg Tab) 650 mg PO Q6H PRN PRN Reason: Fever/pain Stop: 03/01/22 22:46 Last Admin: 02/02/22 08:32 Dose: 650 mg Documented by: Allopurinol (Allopurinol 100 Mg Tab) 100 mg PO QAM [facility] Stop: 03/02/22 08:59 Last Admin: 02/06/22 08:40 Dose: 100 mg Documented by: Atorvastatin Calcium (Atorvastatin 40 Mg Tab) 40 mg PO QPM RICK Stop: 03/02/22 00:14 Last Admin: 02/05/22 20:18 Dose: 40 mg Documented by: Bisacodyl (Bisacodyl 10 Mg Supp) 10 mg RI DAILY PRN PRN Reason: Constipation Stop: 03/01/22 23:44 Enoxaparin Sodium (Enoxaparin Inj 40 Mg/0.4 Ml Syr) 40 mg SQ QAM [facility]ICK Stop: 03/04/22 08:59 Last Admin: 02/06/22 08:40 Dose: 40 mg Documented by: Ferrous Sulfate (Ferrous Sulfate 325 Mg Tab) 325 mg PO DAILY [facility] Stop: 03/02/22 08:59 Last Admin: 02/06/22 08:40 Dose: 325 mg Documented by: Promethazine HCl 12.5 mg/ (Sodium Chloride) 50.5 mls @ 202 mls/hr IV Q6H PRN PRN Reason: Nausea And Vomiting Stop: 03/01/22 22:46 Last Infusion: 02/05/22 08:41 Dose: Infused Documented by: Magnesium Hydroxide (Magnesium Hydroxide Susp 30 Ml Udc) 30 ml PO DAILY PRN PRN Reason: Constipation Stop: 03/01/22 23:44 Last Admin: 02/02/22 08:33 Dose: 30 ml Documented by: Metoprolol Succinate (Metoprolol Succ 50mg Ext Rel Tab) 50 mg PO HS [facility] Stop: 03/02/22 20:59 Last Admin: 02/05/22 20:18 Dose: 50 mg Documented by: Morphine Sulfate (Morphine Sulfate 2 Mg/Ml Carp) 2 mg IV Q3H PRN PRN Reason: Pain Stop: 02/13/22 22:46 Last Admin: 02/06/22 09:55 Dose: 2 mg Documented by: Multivitamins ([facility]itamin Tab) [facility] [place] Stop: 03/02/22 08:59 Last Admin: 02/06/22 08:40 Dose: 1 tab Documented by: Naloxone HCl (Naloxone Hcl 0.4 Mg/1 Ml Vial/Carp) 0.1 mg IV UD PRN PRN Reason: Opiate Overdose Stop: 03/01/22 23:44 Nitroglycerin (Nitroglycerin Sl 0.4 Mg/Tab Tab) 0.4 mg SL Q5M PRN PRN Reason: chest pain Stop: 03/01/22 23:44 Oxycodone HCl (Oxycodone Hcl Ir 5 Mg Tab (Immediate Release)) 5 mg PO Q4H PRN PRN Reason: Pain Stop: 02/13/22 22:46 Last Admin: 02/06/22 07:44 Dose: 5 mg Documented by: Vitamin D (Cholecalciferol 5,000 Units 125 Mcg Tab) 5,000 [facility] [place] Stop: 02/16/22 09:01 Last Admin: 02/06/22 08:40 Dose: 5,000 units Documented by: Warfarin Sodium (Warfarin Sod 1 Mg Tab) 1 mg PO [id number]@1600 [facility] Stop: 03/04/22 15:59 Last Admin: 02/02/22 16:47 Dose: 1 mg Documented by: Warfarin Sodium (Warfarin Sod 2 Mg Tab) 2 mg PO [id number]@1600 [facility] Stop: 03/03/22 19:59 Last Admin: 02/05/22 15:38 Dose: 2 mg Documented by: (1) Closed fracture of left hip Encounter type: initial encounter Qualified Code(s): S72.002A - Fracture of unspecified part of neck of left femur, initial encounter for closed fracture
--- NOTE | 2022-02-07 08:34 | Discharge Summary ---
Date of Service February 07, 2022 Admission HPI Per Admitting Provider History obtained from patient, family, and records. Medical history significant for chronic diastolic heart failure (EF 55%, TTE 2011), CAD, PVD status post surgery, A. fib on Coumadin, hypertension, GERD, past tobacco abuse. Patient fell at home today landing on her left hip. Patient noted achy left hip pain along with left hip deformity. Patient unable to stand up. No chest pain, usual shortness of breath on exertion/fluid retention, no LOC. No head trauma. Patient found by daughter on the floor. She was brought to the ER for evaluation. Patient noted to be in rapid A. fib upon arrival at the ER, heart rate 110s. 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 Exam Per Admitting Provider Physical Exam: GENERAL: Comfortable, pleasant, looks younger for stated age, obese, no respiratory distress SKIN: Normal color, warm HEENT: [place] palpebral conjunctivae, no ptosis, dry buccal mucosa NECK : Supple, no tenderness CHEST : Decreased breath sounds, no tenderness HEART : Irregular, no obvious murmurs ABDOMEN: Marked distention, nontender EXTREMITIES : Bilateral LE swelling, left hip tenderness NEUROLOGIC : Coherent, no facial asymmetry, gait and stance not assessed Principal Diagnosis Left hip fracture status post intramedullary simone placement, atrial fibrillation, chronic diastolic heart failure, CAD, PE BD Discharge Exam Lying in bed without any acute distress Constitutional well developed, well nourished, + ill appearing and + obese Eyes PERRL, conjunctivae normal, anicteric sclerae ENMT external ear and nose normal, oropharynx normal Neck trachea midline, no thyromegaly Respiratory no respiratory distress Auscultation: + diminished lung sounds and + crackles (Minimal crackles at the bases) Cardiovascular Rate/Rhythm: + irregularly irregular; not tachycardic Heart Sounds: normal S1 and normal S2; no murmur Extremities: + edema (Trace edema bilaterally) Gastrointestinal (Abdomen) Inspection/Auscultation: normal bowel sounds; abdomen not distended Percussion/Palpation: abdomen soft; abdomen nontender Neurologic normal touch/pain/proprioception and moves all extremities Lymphatic no cervical or axillary lymphadenopathy Discharge Data Allergies Allergy/AdvReac Type Severity Reaction Status Date / Time cefuroxime Allergy Intermediate HIVES Verified 01/30/22 22:19 Consultations 01/30/22 21:29 ED Decision to Admit Stat 01/30/22 23:45 Consult Orthopedic Surgery Routine 01/31/22 09:12 Consult Cardiology Routine Procedures Performed Operation Date: 02/01/22 07:30 Actual Procedures p Intramedullary Simone Femur(Left) - Levon Loyola DO Ordered Studies 02/01/22 07:00 FL hip LT 2-3V Routine 02/02/22 22:00 US venous doppler LE LT Urgent Hospital Course (1) Closed fracture of left hip: 86-year-old lady with PMH of HFpEF [2012 TTE 55% EF], CAD, PVD status post surgery, A. fib on Coumadin, HTN, GERD and past tobacco abuse presented 01/30 for ED secondary to mechanical fall at home landing on her left hip. She was found to be in A. fib RVR at presentation. She is being managed for the following: Left hip fracture Acute blood loss anemia: likely postoperative, f/u Hb daily and prn. Patient presented 01/31 secondary to mechanical fall, landing on left hip. In the ED patient was found to be in A. fib with RVR and left hip fracture Admitting x-ray left hip:Nondisplaced intertrochanteric fracture of the left femoral neck. Admitting CXR: No acute findings. 02/01: Intramedullary nail fixation left hip (Left) - Levon Loyola DO PT/OT, Pain Control, DVT Px per Ortho. Complains to have pain in the left hip with ambulation Remains generally weak Awaiting placement Incentive spirometry. f/u ortho in 2 weeks, likely need placement. Hemoglobin remains stable at 8.1 She will be transferred to [facility] this afternoon for continued physical therapy and rehab Hypotension Asymptomatic at rest and with ambulation Will discontinue losartan And continue with beta-carlos Blood pressure remains stable and is more than 100 systolic (2) Rapid atrial fibrillation: A. fib RVR Afib rvr 2/2 acute condition. Heart rate under control, cardiology evaluated, acceptable cardiac risk for surgery. Resumed home warfarin 02/01. DC subcut lovenox when INR closer to 2.0 Will need coumadin clinic f/u as oP. She has been off beta-carlos since since admission only 1 dose was given on Heart rate are noted to be high likely secondary to withdrawal from beta-carlos and atrial fibrillation Appreciate cardiology input and recommendation Will discontinue losartan and administer beta-carlos to control the heart rate and blood pressure Received metoprolol succinate last evening and the heart rate remains below 100 this morning She will be discharged to [facility] this afternoon on beta-carlos Other chronic medical conditions: HTN, chronic diastolic heart failure, CAD/PVD status post surgery, GERD, prediabetes Continue with/resume home meds as and when appropriate Caution with blood pressure medication especially perioperative. Lifestyle modification for prediabetes. Lasix prn for swelling. Pt's appetite not very good, Increase protein intake, f/u sodium level, fluid restriction 1.5L and low sodium diet/ Sodium level is 128-we will continue fluid restriction and monitor PRP Check PRP tomorrow-Sodium remais borderline low at 128 DVT prophylaxis. lovenox sc until INR closer to 2.0, on coumadin as well. likely DC lovenox julio. INR is 2.2 today Continue Coumadin Full code Patient daughter Ms. Mine Ballard, contact #[phone]. Will be discharged to [facility] this afternoon Total Time Total Time Spent Total Time Spent (In Minutes): 40 minutes Discharge Plan Discharge Items Patient Disposition: Transfer Inpatient Rehab Fac Reason For Visit: RAPID AF, HIP FX Discharge Diagnosis: Left hip fracture status post intramedullary simone placement, atrial fibrillation, chronic diastolic heart failure, CAD, PE BD Activity: As commented below Activity Comment: Continue PT and OT Non-emergency contact: Primary Care Provider Call non-emergency contact if: you have any medication questions and your symptoms worsen Follow-up/Referrals: Norma Pandey MD [Primary Care Provider] - (Please make an appointment with your PCP within 1 week following discharge from the facility) Diet: Heart Healthy Fluids: 1500ml (6 cups) Addtl Attending Provider Instructions: Please take precautions to avoid falls Take your medications as advised Monitor your INR and dose Coumadin accordingly Please have your BMP checked in a few days to make sure sodium is not dropping Addtl Telecommunications Sales Representative Provider Instructions: ORTHOPEDIC INSTRUCTIONS Hip Fracture Activity and Therapy Recommendations: 1. You were shown a series of exercises in the hospital. Do these exercises three times each day if you are able. 2. Get up and walk several times each day if you are capable. Make sure you have assistance is needed. For the first four weeks, try not to stand or walk for more than one hour at a time. If you do stand or walk for more than one hour, you will not hurt anything, but your leg will likely swell. 3. As you feel comfortable, you may change from the walker or crutches to a cane and then to independent walking if you are able. Please be safe. Medications: 1. Narcotic You will likely be sent from the hospital with the narcotic pain medication that worked best throughout your stay. 2. Coumadin Continue your Coumadin as you were prior to the procedure 3. Other medications may be given for specific circumstances. If you have any questions, please call the office at [phone]. 4. Resume previous home medications unless otherwise instructed TEDs/Elastic Stockings: The white elastic stockings help limit swelling and prevent blood clots from forming in your legs. The more you wear them, the more they work. Wear them for six weeks. Dressing Care: Marya can be open to air as long as the incisions are not draining. If the incisions are draining or if the marya are getting caught on your clothes then please cover the marya with dry gauze. Change the dressings as necessary to keep the incision as dry as possible Showering: You may shower 5 days from the day of surgery as long as the incisions are not draining. Do not soak the incision. Let soapy water run over the marya and pat them dry. Things To Watch For: 1. Drainage from the incision site that occurs more than one week after your surgery. 2. Increased redness at the incision site. 3. Fever above 102 degrees Fahrenheit. 4. Unusual chest pain or shortness of breath. 5. Call [facility] at with any of the above problems Follow-Up Visit: Follow-up with Dr. Loyola's PA (Levon Santana) 2-3 weeks after your day of surgery. He will remove your marya and answer any questions. If you have any additional questions or concerns, Dr Loyola is usually in the office at the same time and will be available Please call to make an appointment for a time that works for you. [phone] Pending Studies at Discharge: No Stand-Alone Forms: My [facility] Skilled Items Patient informed of condition?: Yes DNR: No Discharge Level of Care: Acute rehab Communicable Disease: No Discharge Prognosis: Stable Lines: None Urinary Catheter: No Medications and DC Order Prescriptions: New oxycodone 5 mg Tablet 5 mg PO Q4H PRN (Reason: pain) Qty: 14 RF: 0 Continued furosemide 40 mg tablet 40 mg PO DAILY PRN (Reason: weight gain) Qty: 30 RF: 11 warfarin 1 mg tablet 1 mg PO .COMPLEX Qty: 180 RF: 11 atorvastatin 40 mg tablet 40 mg PO QPM Qty: 30 RF: 0 multivitamin [Daily Multi-Vitamin] tablet 1 tab PO QAM RF: 0 metoprolol succinate 50 mg tablet extended release 24 hr 50 mg PO DAILY RF: 0 nitroglycerin 0.4 mg tablet, sublingual 0.4 mg SL Q5M PRN (Reason: chest pain) RF: 0 diphenoxylate-atropine [Lomotil] 2.5-0.025 mg Tablet 1 tab PO Q6 PRN (Reason: Diarrhea) RF: 0 allopurinol 100 mg tablet 100 mg PO QAM RF: 0 ferrous sulfate 325 mg (65 mg iron) Tablet 325 mg PO DAILY RF: 0 Changed cholecalciferol (vitamin D3) [Vitamin D3] 25 mcg (1,000 unit) Tablet 50 mcg PO DAILY Qty: 0 RF: 0 Discontinued valsartan 80 mg tablet 80 mg PO DAILY Qty: 90 RF: 3 Discharge Orders: Discharge Order (Routine); Ordered 02/06/22 Ordered By: Chris Bo/Other Patient Handouts: Prediabetes, 5 Steps for Eating Healthier Admission Data Admit Date/Time: 01/30/22 22:39 Attending Provider: Chris Price Admit Provider: Brandon Dominguez Primary Care Provider: Norma Pandey Other Providers: Brandon Dominguez ; Levon Loyola Kip M. ; Ari Barros ; Domingo Pimentel ; Marquis Kirk ; Davon Wetzel ; Jamie Ramos Jr ; Donald Warner ; Inez Quesada ; Samantha Pineda ; Frank Deras ; Haresh Whipple ; Mario Jaffe ; Adrianne Osborn ; Tamra Mccartney ; Miller Maldonado ; José Miguel Matson ; Dale Canela ; Jack Ta ; Marquis Briscoe V. ; [facility] CasselberryJunior ; Fariha Abraham ; [facility] Other Interventions: Discharge Summary Assessment (RN) Last Done: 02/06/22 11:19
== END 2022-02-06 12:00 | DRG 481 ==
LOC: ED 19:32 → 2S 22:39 → SUATTDRO 22:39 → 2S 23:21
DX: I25.10 Atherosclerotic heart disease of native coronary artery without angina pectoris; I48.21 Permanent atrial fibrillation; I50.32 Chronic diastolic (congestive) heart failure; E87.1 Hypo-osmolality and hyponatremia; I25.2 Old myocardial infarction; I13.0 Hypertensive heart and chronic kidney disease with heart failure and stage 1 through stage 4 chronic kidney disease, or unspecified chronic kidney disease; R73.03 Prediabetes; S72.145A Nondisplaced intertrochanteric fracture of left femur, initial encounter for closed fracture; E78.5 Hyperlipidemia, unspecified; W19.XXXA Unspecified fall, initial encounter; Z79.01 Long term (current) use of anticoagulants; Z68.33 Body mass index [BMI] 33.0-33.9, adult; Z87.891 Personal history of nicotine dependence; I73.9 Peripheral vascular disease, unspecified; E66.9 Obesity, unspecified; N18.9 Chronic kidney disease, unspecified; Z88.1 Allergy status to other antibiotic agents; I95.9 Hypotension, unspecified; Y92.009 Unspecified place in unspecified non-institutional (private) residence as the place of occurrence of the external cause; D62 Acute posthemorrhagic anemia

== ENCOUNTER 2022-05-22 18:37 | Inpatient (IN) ==
--- NOTE | 2022-05-22 20:18 | Emergency Department Note ---
History of Present Illness General Chief complaint: Shortness of Breath/Dyspnea Stated complaint: SOB Time Seen by Provider: 05/22/22 19:59 Source: patient and family Mode of arrival: wheelchair Limitations: no limitations History of Present Illness Provider complaint: Increasing swelling, shortness of breath This is an 86-year-old female presents emergency department after PCP called her and told her that the chest x-ray she had done on Wednesday showed that her lungs were full of fluid. She was instructed to come the emergency room for additional evaluation and treatment. Patient states she has been taking Lasix daily for 12 years. She states following this finding by her PCP she was changed to torsemide on Wednesday and has taken it every day since. She states she has had chronic lower extremity edema ever since requiring hip surgery approximately a month ago which she is now experiencing complications to. She states many years ago she did have a mild heart attack and is only once been told she had congestive heart failure. She states her breathing is worse with any movement. She denies any change in activity and states she is mostly nonambulatory due to the hip problems. She denies any fevers or chills, she has had a dry and nonproductive cough. She states she has fluid all the way up her legs and even into her abdomen and back. Pt seen during a time of high acuity and national emergency pandemic while wearing PPE. Home Medications Medication Instructions Recorded Confirmed Type atorvastatin 40 mg tablet 40 mg PO QPM #30 tabs 06/30/19 05/22/22 History multivitamin (Daily Multi-Vitamin 1 tab PO QAM 06/30/19 05/22/22 History tablet) nitroglycerin 0.4 mg sublingual 0.4 mg sublingual Q5M PRN chest 06/30/19 05/22/22 History tablet pain warfarin 1 mg tablet 1 mg PO .COMPLEX #180 tabs 01/12/22 05/22/22 Rx allopurinol 100 mg tablet 100 mg PO QAM 01/30/22 05/22/22 History diphenoxylate-atropine 2.5 1 tab PO Q6 PRN Diarrhea 01/30/22 05/22/22 History mg-0.025 mg tablet (Lomotil) ferrous sulfate 325 mg (65 mg 325 mg PO DAILY 01/30/22 05/22/22 History iron) tablet cholecalciferol (vitamin D3) 25 50 mcg PO DAILY #0 tabs 02/06/22 05/22/22 Rx mcg (1,000 unit) tablet (Vitamin D3) metoprolol succinate 25 mg 50 mg PO DAILY 03/19/22 05/22/22 History tablet,extended release 24 hr valsartan 80 mg tablet 80 mg PO DAILY #90 tabs 03/25/22 05/22/22 Rx furosemide 40 mg tablet 40 mg PO DAILY PRN weight gain #90 05/20/22 05/22/22 Rx tabs oxycodone 5 mg tablet 5 mg PO Q6 PRN Pain 05/22/22 05/22/22 History sennosides 8.6 mg tablet (senna) 8.6 mg PO QAM 05/22/22 05/22/22 History simethicone 80 mg chewable tablet 80 mg PO Q8 PRN .gas 05/22/22 05/22/22 History torsemide 10 mg tablet 10 mg PO QAM 05/22/22 05/22/22 History Allergies Allergy/AdvReac Type Severity Reaction Status Date / Time cefuroxime Allergy Intermediate HIVES Verified 03/19/22 12:24 cefdinir Allergy Unknown Unverified 03/19/22 12:24 Past Med/Surg History Medical History (Updated 05/24/22 @ 00:33 by Rima Barnes DO) AAA (abdominal aortic aneurysm) Aneurysm of abdominal aorta Anticoagulant long-term use Arteriosclerosis of carotid artery Atrial fibrillation, persistent Basal cell cancer CAD (coronary artery disease) Chronic renal insufficiency Deep vein thrombosis of lower extremity Hip fracture, left closed; January 2022; s/p intermedullary nail Ovarian mass, left s/p April 2022 excision; 26 cm serous cystadenoma (benign) Peripheral arterial disease Sick sinus syndrome Vertigo Surgical History (Updated 05/23/22 @ 13:41 by Gissel Boo MD, PhD) H/O oophorectomy 26 x 22 x 16.5 cm large solid and cystic lesion filling the pelvis Ca 125: 74 CEA: 3.9 Ca 19-9: 7.9 History of prior hysterectomy and right salpingo-oophorectomy 04/20/2022: Exploratory laparotomy, left salpingo-oophorectomy, omentectomy and appendectomy. BENIGN pathology. H/O: hysterectomy S/P AAA repair Social History (Updated 05/23/22 @ 13:50 by Gissel Boo MD, PhD) Smoking Status: Former smoker Tobacco Type: Cigarettes packs per day: 1; Years Smoked: 50; Smoking End Date: 2008; Hx Alcohol Use: No Hx Substance Use: No Preferred Language: Cymro Communication Ability: Effective Online [employer]itness [employer] Required: No Beliefs That Will Affect Care: None marital status: / Current Living Situation: Other Current Living Situation Comment: has been living with her daughter [place] since February current occupational status: retired Feels Safe at Home: Yes Safety Concerns: Feels Safe At This Time Assistive Devices: None Review of Systems A total of 10 systems reviewed and were otherwise negative All systems reviewed & are unremarkable except as noted in HPI & below Physical Exam Vital Signs Vital Signs - 24 hr 05/22/22 18:49 05/22/22 20:14 05/22/22 20:44 Temperature 36.4 C L Temperature Source Temporal Artery Scan Pulse Rate 90 Pulse Rate [Finger] Pulse Rhythm Regular Pulse Rhythm [Finger] Pulse Strength Normal Pulse Strength [Finger] Respiratory Rate 16 22 Respiratory Effort / Characteristics Non-Labored Spontaneous Spontaneous Respiratory Depth Normal Blood Pressure 139/93 Blood Pressure [Right Arm] Blood Pressure Mean 108 Blood Pressure Mean [Right Arm] Pulse Oximetry 97 94 Oxygen Delivery Method Room Air Room Air Room Air Oxygen Flow Rate 94 Sepsis Recent Fever Within 48 Hours No Sepsis New/Unexplained Change in Mental Status No Sepsis Action Taken by Nursing No Action Required 05/22/22 20:44 05/22/22 21:42 Temperature Temperature Source Pulse Rate Pulse Rate [Finger] 94 H Pulse Rhythm Pulse Rhythm [Finger] Regular Pulse Strength Pulse Strength [Finger] Normal Respiratory Rate 24 Respiratory Effort / Characteristics Non-Labored Spontaneous Respiratory Depth Normal Blood Pressure Blood Pressure [Right Arm] 153/88 H Blood Pressure Mean Blood Pressure Mean [Right Arm] 109 Pulse Oximetry 94 94 Oxygen Delivery Method Room Air Room Air Oxygen Flow Rate Sepsis Recent Fever Within 48 Hours Sepsis New/Unexplained Change in Mental Status Sepsis Action Taken by Nursing GENERAL: alert, well appearing, well nourished, no distress, non-toxic EYE EXAM: normal conjunctiva, PERRL and EOM's grossly intact OROPHARYNX: no exudate, no erythema, lips, buccal mucosa, and tongue normal and mucous membranes are moist NECK: supple, no nuchal rigidity, no adenopathy, non-tender LUNGS: Clear to auscultation. Normal chest wall mechanics, no rhonchi, bibasilar rales, expiratory wheeze noted on the right superiorly HEART: no murmurs, S1 normal and S2 normal ABDOMEN: abdomen soft, non-tender, normo-active bowel sounds, no masses, no rebound or guarding. Mild edema noted to lower abdomen. BACK: Back is symmetrical on inspection and there is no deformity, no midline tenderness, no CVA tenderness. Presacral edema noted. SKIN: no rashes and no bruising UPPER EXTREMITIES: upper extremities are grossly normal. FROM, nml pulses b/l. LOWER EXTREMITIES: 3+ b/l LE pitting edema up to hips. FROM, nml pulses b/l. NEURO EXAM: Normal sensorium, cranial nerves II-XII grossly intact, normal speec h, no gross weakness of arms, no gross weakness of legs. Gross sensation intact. Course Administered Medications Allopurinol (Allopurinol 100 Mg Tab) 100 mg PO QAM RICK Stop: 06/22/22 08:59 Last Admin: 05/23/22 08:01 Dose: 100 mg Documented By: [id number] Atorvastatin Calcium (Atorvastatin 40 Mg Tab) 40 mg PO QPM RICK Stop: 06/22/22 20:59 Last Admin: 05/23/22 20:33 Dose: 40 mg Documented By: BENJI Doxycycline Hyclate (Doxycycline Hyclate 100 Mg Cap) 100 mg PO BID RICK Stop: 05/30/22 08:59 Last Admin: 05/23/22 20:33 Dose: 100 mg Documented By: Admin: 05/23/22 08:01 Dose: 100 mg Documented By: [id number] Ferrous Sulfate (Ferrous Sulfate 325 Mg Tab) 325 mg PO DAILY@1130 [facility] Stop: 06/22/22 11:29 Last Admin: 05/23/22 12:07 Dose: 325 mg Documented By: [id number] Furosemide (Furosemide 40 Mg/4 Ml Vial) 40 mg IV Q6H [facility] Stop: 06/22/22 14:14 Last Admin: 05/23/22 20:34 Dose: 40 mg Documented By: Admin: 05/23/22 15:06 Dose: 40 mg Documented By: [id number] Metoprolol Succinate (Metoprolol Succ 50mg Ext Rel Tab) 50 mg PO DAILY RICK Stop: 06/22/22 08:59 Last Admin: 05/23/22 08:01 Dose: 50 mg Documented By: [id number] Multivitamins (Multivitamin Tab) 1 tab PO QAM RICK Stop: 06/22/22 08:59 Last Admin: 05/23/22 08:01 Dose: 1 tab Documented By: [id number] Potassium Chloride (Potassium Chloride Crtab 20 Meq Tabcr) 20 meq PO BID RICK Stop: 06/22/22 14:09 Last Admin: 05/23/22 20:33 Dose: 20 meq Documented By: Admin: 05/23/22 15:05 Dose: 20 meq Documented By: [id number] Sennosides (Senna 8.6 Mg Tab) 8.6 mg PO QAM RICK Stop: 06/22/22 08:59 Last Admin: 05/23/22 08:02 Dose: Not Given Documented By: [id number] Discontinued Medications Doxycycline Hyclate (Doxycycline Hyclate 100 Mg Cap) 100 mg PO NOW STA Stop: 05/22/22 23:23 Last Admin: 05/22/22 23:43 Dose: 100 mg Documented By: LUIS M Furosemide (Furosemide 40 Mg/4 Ml Vial) 40 mg IV ONE ONE Stop: 05/22/22 22:36 Last Admin: 05/22/22 23:20 Dose: 40 mg Documented By: LUIS M Furosemide (Furosemide 40 Mg/4 Ml Vial) 40 mg IV [id number] RICK Stop: 06/22/22 08:59 Last Admin: 05/23/22 08:02 Dose: 40 mg Documented By: [id number] Magnesium Sulfate/Dextrose (Magnesium Sulfate / D5w) 1 gm in 100 mls @ 50 mls/hr IV ONE ONE Stop: 05/23/22 01:13 Last Infusion: 05/23/22 01:36 Dose: 0 mls/hr Documented By: Admin: 05/22/22 23:41 Dose: 50 mls/hr Documented By: LUIS M Ipratropium [place] (Ipratropium [place] Neb Soln 0.02% 2.5 Ml Vial) 0.5 mg INH NOW STA Stop: 05/22/22 23:15 Last Admin: 05/23/22 00:30 Dose: 0.5 mg Documented By: MEENU Levalbuterol HCl (Levalbuterol 1.25mg/0.5ml Neb) 1.25 mg INH NOW STA Stop: 05/22/22 23:15 Last Admin: 05/23/22 00:30 Dose: 1.25 mg Documented By: MEENU Warfarin Sodium (Warfarin Sod 2 Mg Tab) 2 mg PO NOW STA Stop: 05/23/22 20:55 Last Admin: 05/23/22 21:30 Dose: 2 mg Documented By: BENJI Medical Decision Making Differential Diagnosis Differential diagnoses includes but is not limited to pneumonia, bronchitis, COPD/Asthma exacerbation, pneumothorax, pulmonary embolism, congestive heart failure, acute coronary syndrome Medical Records Attestation: I reviewed the patient's medical records. Home Medications Current Medication List: was personally reviewed by me Laboratory Data Attestation: I reviewed the patient's lab results. Result diagrams: 05/23/22 06:21 05/23/22 16:48 Lab Results 05/22/22 05/22/22 05/22/22 Range/Units 20:52 20:52 20:52 WBC 10.44 (4.8-10.8) K/ul RBC 4.46 (3.93-5.22) M/uL Hgb 11.0 L (12.0-16.0) g/dl Hct 36.3 (34.1-44.9) % MCV 81.4 (80.0-100.0) fL MCH 24.7 L (25.0-34.0) pg MCHC 30.3 L (32.0-36.0) g/dL RDW Std Deviation 44.3 (36.4-46.3) fL RDW Coeff of Marcell[place] 14.9 H (11.5-14.5) % Plt Count 221 (130-400) K/uL MPV 10.1 (9.4-12.3) fL Immature Gran % (Auto) 0.5 % Neut % (Auto) 78.0 % Lymph % (Auto) 11.9 % [place] % (Auto) 7.9 % Eos % (Auto) 0.8 % Baso % (Auto) 0.9 % Neut # (Auto) 8.16 H (1.4-6.5) K/uL Lymph # (Auto) 1.24 (1.2-3.4) K/uL [place] # (Auto) 0.82 (0.24-0.82) K/uL Eos # (Auto) 0.08 (0-0.50) K/uL Baso # (Auto) 0.09 (0-0.2) K/uL Immature Gran # (Auto) 0.05 H (0.00-0.02) K/uL PT 26.4 H (9.0-12.0) Seconds INR 2.6 H (0.9-1.1) APTT 41.0 H (21.0-31.0) Seconds PTT Ratio 1.5 Sodium 132 L (136-145) mmol/L Potassium 4.5 (3.5-5.1) mmol/L Chloride 95 L (98-107) mmol/L Carbon Dioxide 30 (21-32) mmol/L Anion Gap 7 (3-11) BUN 20 (6-23) mg/dl Creatinine 1.02 (0.6-1.2) mg/dl Est Cr Clr Drug Dosing Not Reportable Est GFR ( Amer) 57.7 ml/min Est GFR (Non-Af Amer) 49.8 ml/min BUN/Creatinine Ratio 19.6 (10-20) Glucose 108 H (70-99(Fasting)) mg/dl Calcium 9.2 (8.5-10.1) mg/dl Magnesium 1.9 (1.7-2.4) mg/dl Total Bilirubin 0.5 (0.2-1.0) mg/dl AST 34 (13-39) U/L ALT 29 (7-52) U/L Alkaline Phosphatase 187 H (34-104) U/L Troponin I High Sens 13.4 (0-14) pg/ml B-Natriuretic Peptide (0-100) pg/ml Total Protein 6.8 (6.0-8.3) gm/dl Albumin 3.7 (3.4-5.0) gm/dl Globulin 3.1 (2.5-4.0) gm/dl Albumin/Globulin Ratio 1.2 (0.9-2) TSH (0.300-4.500) uIu/ml SARS-CoV-2, RNA, NAAT (NEGATIVE) 05/22/22 05/22/22 05/22/22 Range/Units 20:52 20:52 22:29 WBC (4.8-10.8) K/ul RBC (3.93-5.22) M/uL Hgb (12.0-16.0) g/dl Hct (34.1-44.9) % MCV (80.0-100.0) fL MCH (25.0-34.0) pg MCHC (32.0-36.0) g/dL RDW Std Deviation (36.4-46.3) fL RDW Coeff of [place] (11.5-14.5) % Plt Count (130-400) K/uL MPV (9.4-12.3) fL Immature Gran % (Auto) % Neut % (Auto) % Lymph % (Auto) % [place] % (Auto) % Eos % (Auto) % Baso % (Auto) % Neut # (Auto) (1.4-6.5) K/uL Lymph # (Auto) (1.2-3.4) K/uL [place] # (Auto) (0.24-0.82) K/uL Eos # (Auto) (0-0.50) K/uL Baso # (Auto) (0-0.2) K/uL Immature Gran # (Auto) (0.00-0.02) K/uL PT (9.0-12.0) Seconds INR (0.9-1.1) APTT (21.0-31.0) Seconds PTT Ratio Sodium (136-145) mmol/L Potassium (3.5-5.1) mmol/L Chloride (98-107) mmol/L Carbon Dioxide (21-32) mmol/L Anion Gap (3-11) BUN (6-23) mg/dl Creatinine (0.6-1.2) mg/dl Est Cr Clr Drug Dosing Est GFR ( Amer) ml/min Est GFR (Non-Af Amer) ml/min BUN/Creatinine Ratio (10-20) Glucose (70-99(Fasting)) mg/dl Calcium (8.5-10.1) mg/dl Magnesium (1.7-2.4) mg/dl Total Bilirubin (0.2-1.0) mg/dl AST (13-39) U/L ALT (7-52) U/L Alkaline Phosphatase (34-104) U/L Troponin I High Sens (0-14) pg/ml B-Natriuretic Peptide 996 H (0-100) pg/ml Total Protein (6.0-8.3) gm/dl Albumin (3.4-5.0) gm/dl Globulin (2.5-4.0) gm/dl Albumin/Globulin Ratio (0.9-2) TSH 3.119 (0.300-4.500) uIu/ml SARS-CoV-2, RNA, NAAT NEGATIVE (NEGATIVE) Imaging Data Radiologist's Impression: Chest X-Ray 05/22/22 18:52 XR chest 1V portable HISTORY: 86 years-old Female SOB acute shortness of breath COMPARISON: Chest radiograph 03/19/2022 TECHNIQUE: Portable AP view of the chest FINDINGS: Cardiac silhouette is enlarged. Small pleural effusions with bibasilar consolidation. Pulmonary vascular congestion with interstitial coarsening. Calcified plaque of the thoracic aorta. No pneumothorax.. Degenerative changes of the shoulders and spine. IMPRESSION: 1. Cardiomegaly with mild pulmonary edema. 2. Small pleural effusions with bibasilar consolidation suggestive of atelectasis versus pneumonia. ACT 112: Negative or not required by law. The above report was generated using voice recognition software. It may contain grammatical, syntax or spelling errors. Electronically signed by: Gm Younger M.D. 05/22/2022 8:31 PM ECG Data Attestation: I personally reviewed and interpreted this ECG as follows: Indication: + SOB/dyspnea Rate (beats per minute): 93 Rhythm: + atrial fibrillation ECG Intervals/blocks: + Normal QRS and + Normal QT ECG [place]: + Normal ECG ST segments: + Nonspecific ST abnormalities MDM Narrative An order was placed for continuous cardiac monitoring. The monitor shows a rate of _72_ with _a.fib__ rhythm. This is an 86-year-old female presents emergency department due to concern for increased trouble breathing after family doctor called her and told her to come to the ER due to an abnormal outpatient chest x-ray showing increased fluid in her lungs. Patient does have prior heart history as well as history of CHF. She does take diuretics daily that were recently changed to torsemide. Patient was afebrile and hemodynamically stable, she was not hypoxic on presentation. Patient did have obvious anasarca as well as bilateral rales on clinical exam. Discussed with patient given failed outpatient management and past medical history as well as worsening reported symptoms, that additional inpatient evaluation was warranted. Patient verbalized understanding and was in agreement. Labs drawn and sent, chest x-ray performed here. Patient did have evidence of pulmonary edema. BNP markedly elevated. No evidence of SHAW. Case discussed with hospitalist for additional evaluation and management. Impression & Plan Dyspnea, Anasarca, Pulmonary edema Discharge Plan Visit Data Chief Complaint: Shortness of Breath/Dyspnea Stated Complaint: SOB ED Provider: Rima Barnes Discharge Problem: Dyspnea, Anasarca, Pulmonary edema Patient Disposition: Admitted As Inpatient Discharge Instructions Interventions: ED Discharge Assessment Last Done: 05/23/22 00:21
--- NOTE | 2022-05-22 20:32 | XRay Report ---
XR chest 1V portable HISTORY: 86 years-old Female SOB acute shortness of breath COMPARISON: Chest radiograph 03/19/2022 TECHNIQUE: Portable AP view of the chest FINDINGS: Cardiac silhouette is enlarged. Small pleural effusions with bibasilar consolidation. Pulmonary vascu lar congestion with interstitial coarsening. Calcified plaque of the thoracic aorta. No pneumothorax. . Degenerative changes of the shoulders and spine. IMPRESSION: 1. Cardiomegaly with mild pulmonary edema. 2. Small pleural effusions with bibasilar consolidation suggestive of atelectasis versus pneumonia. ACT 112: Negative or not required by law. The above report was generated using voice recognition software. It may contain grammatical, syntax o r spelling errors. Electronically signed by: Gm Younger M.D. 05/22/2022 8:31 PM
[2022-05-22 21:22] LABS: Basophils # (auto) 0.09 K/uL (0-0.2); Basophils % (auto) 0.9 %; Eosinophils # (auto) 0.08 K/uL (0-0.50); Eosinophils % (auto) 0.8 %; Hematocrit (blood only) 36.3 % (34.1-44.9); Immature Granulocytes # (auto) 0.05 K/uL (0.00-0.02); Immature Granulocytes % (auto) 0.5 %; Lymphocytes # (auto) 1.24 K/uL (1.2-3.4); Lymphocytes % (auto) 11.9 %; Mean Corpuscular Hemoglobin 24.7 pg (25.0-34.0); Mean Corpuscular Hgb Conc 30.3 g/dL (32.0-36.0); Mean Corpuscular Volume 81.4 fL (80.0-100.0); Mean Platelet Volume 10.1 fL (9.4-12.3); Monocytes # (auto) 0.82 K/uL (0.24-0.82); Monocytes % (auto) 7.9 %; Neutrophils # (auto) 8.16 K/uL (1.4-6.5); Platelet Count 221 K/uL (130-400); RDW Coefficient of Variation 14.9 % (11.5-14.5); RDW Standard Deviation 44.3 fL (36.4-46.3); Red Blood Count 4.46 M/uL (3.93-5.22); White Blood Count 10.44 K/ul (4.8-10.8)
[2022-05-22 21:28] LABS: INR 2.6 (0.9-1.1); Partial Thromboplastin Ratio 1.5; Prothrombin Time 26.4 Seconds (9.0-12.0)
[2022-05-22 21:42] LABS: Alanine Aminotransferase 29 U/L (7-52); Albumin Globulin Ratio 1.2 (0.9-2); Albumin Level 3.7 gm/dl (3.4-5.0); Alkaline Phosphatase 187 U/L (34-104); Anion Gap 7 (3-11); Aspartate Aminotransferase 34 U/L (13-39); BUN Creatinine Ratio 19.6 (10-20); Bilirubin,Total 0.5 mg/dl (0.2-1.0); Blood Urea Nitrogen 20 mg/dl (6-23); Calcium 9.2 mg/dl (8.5-10.1); Carbon Dioxide 30 mmol/L (21-32); Chloride 95 mmol/L (98-107); Est GFR (African American) 57.7 ml/min; Est GFR (Non-African American) 49.8 ml/min; Globulin 3.1 gm/dl (2.5-4.0); Glucose 108 mg/dl (70-99(Fasting)); Magnesium 1.9 mg/dl (1.7-2.4); Potassium 4.5 mmol/L (3.5-5.1); Sodium 132 mmol/L (136-145); Total Protein 6.8 gm/dl (6.0-8.3)
[2022-05-22 21:45] LABS: Troponin I High Sensitivity 13.4 pg/ml (0-14)
[2022-05-22] MEDS ORDERED: FUROSEMIDE 40 MG/4 ML VIAL IV ONE (22:35)
[2022-05-22] MEDS ORDERED: IPRATROPIUM BROMIDE NEB SOLN 0.02% 2.5 ML VIAL INH STA (23:14)
[2022-05-22] MEDS ORDERED: MAGNESIUM SULFATE / D5W 1 GM/100 ML BAG IV ONE (23:14)
[2022-05-22] MEDS ORDERED: XOPENEX/ATROVENT 1.25mg/0.5MG NEB COMBO NEB STA (23:14)
[2022-05-22] MEDS ORDERED: LEVALBUTEROL 1.25MG/0.5ML NEB INH STA (23:14)
--- NOTE | 2022-05-22 23:16 | History & Physical Report ---
Date of Service May 22, 2022 Assessment & Plan (1) CHF (congestive heart failure): Plan: Decompensated heart failure hx diastolic dysfunction Precipitant to be determined Outpatient Nephrology provider had expressed concerns about Lasix tolerance and possible nephrotic syndrome Bilateral leg swelling secondary to above along with secondary cellulitis No sepsis for now hx CAD, PVD status post surgery A. fib, on Coumadin, rate slightly, INR therapeutic hypertension, slightly elevated hx COPD, not in acute exacerbation chronic anemia, hemoglobin at baseline Hyperglycemia likely prediabetes, hemoglobin A1c of 5.19 Jan 2022 past tobacco abuse PCU Diuretic Rx Strict I/Os, daily weights, CHF education, fluid restriction Update TTE Cardiology and Nephrology consultation Re: CHF, fluid retention Doxycycline for LE cellulitis DVT prophylaxis. Coumadin INR goal between 2 and 3 Full code Patient daughter requesting updates from providers. Ms. Mine Ballard, contact #[phone]. Text document was generated using NetMinder voice recognition software. It may contain grammatical or spelling errors. Kindly contact undersigned for clarification of any documentation item in question. History of Present Illness Chief Complaint: Shortness of breath Primary Care Provider: Norma Pandey MD History obtained from patient, family, and records. Medical history significant for chronic diastolic heart failure (EF 55%, TTE 2011), CAD, PVD status post surgery, A. fib on Coumadin, hypertension, COPD, GERD, chronic anemia (baseline hemoglobin 10-11) past tobacco abuse. Last [facility] confinement January 2022 for traumatic left hip fracture status post surgery. 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 Patient noted increased bilateral leg swelling more on the left since January 2022 for fracture surgery. Worsening edema despite higher dose of diuretics as per outpatient [facility] [place] [place] Cardiology note from 2 months ago. Patient denies actual chest pain or unusual shortness of breath. Patient compliant with home medications. Denies dietary indiscretion. Sparse OTC NSAID intake. Patient tries to be compliant with 32 ounces daily fluid restriction Patient seen [place] [facility] [place] visit 2 days ago. Provider worried about lymphedema and possible Lasix tolerance. Concern for nephrotic syndrome given extent of edema as per provider note. Patient Lasix switched to Torsemide. Outpatient labs requested. Outpatient BNP noted to be elevated. Outpatient CXR result as follows Findings compatible with fluid overload with bilateral pleural effusions with subjacent consolidation most likely atelectasis and changes of pulmonary vascular congestion. Note that superimposed pneumonia specially in left lower lobe would be difficult to exclude and clinical correlation is therefore recommended. Mailing Machine Helper recommended ER evaluation anytime patient symptoms worsened. Patient noted increased bilateral leg swelling along with redness the last 2 days despite compliance with new diuretic regimen. Increased shortness of breath especially on exertion. No chest pain, no unusual cough symptoms. No fever, no chills. Patient brought to the ER by daughter for evaluation. 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 Allergies Allergy/AdvReac Type Severity Reaction Status Date / Time cefuroxime Allergy Intermediate HIVES Verified 03/19/22 12:24 cefdinir Allergy Unknown Unverified 03/19/22 12:24 Home Medications Medication Instructions Recorded Confirmed Type atorvastatin 40 mg tablet 40 mg PO QPM #30 tabs 06/30/19 05/22/22 History multivitamin (Daily Multi-Vitamin 1 tab PO QAM 06/30/19 05/22/22 History tablet) nitroglycerin 0.4 mg sublingual 0.4 mg sublingual Q5M PRN chest 06/30/19 05/22/22 History tablet pain warfarin 1 mg tablet 1 mg PO .COMPLEX #180 tabs 01/12/22 05/22/22 Rx allopurinol 100 mg tablet 100 mg PO QAM 01/30/22 05/22/22 History diphenoxylate-atropine 2.5 1 tab PO Q6 PRN Diarrhea 01/30/22 05/22/22 History mg-0.025 mg tablet (Lomotil) ferrous sulfate 325 mg (65 mg 325 mg PO DAILY 01/30/22 05/22/22 History iron) tablet cholecalciferol (vitamin D3) 25 50 mcg PO DAILY #0 tabs 02/06/22 05/22/22 Rx mcg (1,000 unit) tablet (Vitamin D3) metoprolol succinate 25 mg 50 mg PO DAILY 03/19/22 05/22/22 History tablet,extended release 24 hr valsartan 80 mg tablet 80 mg PO DAILY #90 tabs 03/25/22 05/22/22 Rx furosemide 40 mg tablet 40 mg PO DAILY PRN weight gain #90 05/20/22 05/22/22 Rx tabs oxycodone 5 mg tablet 5 mg PO Q6 PRN Pain 05/22/22 05/22/22 History sennosides 8.6 mg tablet (senna) 8.6 mg PO QAM 05/22/22 05/22/22 History simethicone 80 mg chewable tablet 80 mg PO Q8 PRN .gas 05/22/22 05/22/22 History torsemide 10 mg tablet 10 mg PO QAM 05/22/22 05/22/22 History Past Med/Surg History Medical History Aneurysm of abdominal aorta Anticoagulant long-term use Arteriosclerosis of carotid artery Atrial fibrillation, persistent Basal cell cancer CAD (coronary artery disease) Chronic renal insufficiency Deep vein thrombosis of lower extremity Sick sinus syndrome Vertigo Surgical History H/O: hysterectomy S/P AAA repair Social History Smoking Status: Never smoker Hx Alcohol Use: No Hx Substance Use: No Preferred Language: Estonian Communication Ability: Effective Quality Assurance Project Manager Required: No Beliefs That Will Affect Care: None marital status: / Current Living Situation: Other Current Living Situation Comment: has been living with her daughter argentina since February current occupational status: retired Feels Safe at Home: Yes Safety Concerns: Feels Safe At This Time Assistive Devices: None Review of Systems Review of Systems: As per HPI, all other systems reviewed and negative Physical Exam Physical Exam: GENERAL: Slightly uncomfortable, pleasant, looks younger for stated age, obese, dysphonic, no respiratory distress SKIN: Pallor , warm HEENT: Pale palpebral conjunctivae, no ptosis, dry buccal mucosa NECK : Supple, distended neck veins, no tenderness CHEST : Decreased breath sounds, bibasilar crackles, no tenderness HEART : Irregular, no obvious murmurs ABDOMEN: Marked distention, nontender EXTREMITIES : Bilateral LE swelling (L>R with minimal erythema) minimal LE tenderness NEUROLOGIC : Coherent, no facial asymmetry, gait and stance not assessed Results & Data Results & Data ([facility]) Vital Signs (Past 12 Hours) Vital Signs Temp Pulse Pulse Resp BP BP Pulse Ox 05/22/22 21:42 94 H 24 153/88 H 94 05/22/22 20:44 94 05/22/22 20:44 22 94 05/22/22 20:14 05/22/22 18:49 36.4 C L 90 16 139/93 97 O2 Del Method O2 Flow Rate 05/22/22 21:42 Room Air 05/22/22 20:44 Room Air 05/22/22 20:44 Room Air 05/22/22 20:14 Room Air 94 05/22/22 18:49 Room Air Laboratory Results Laboratory Results WBC 10.44 K/ul (4.8-10.8) 05/22/22 20:52 RBC 4.46 M/uL (3.93-5.22) 05/22/22 20:52 Hgb 11.0 g/dl (12.0-16.0) L 05/22/22 20:52 Hct 36.3 % (34.1-44.9) 05/22/22 20:52 MCV 81.4 fL (80.0-100.0) 05/22/22 20:52 MCH 24.7 pg (25.0-34.0) L 05/22/22 20:52 MCHC 30.3 g/dL (32.0-36.0) L 05/22/22 20:52 RDW Std Deviation 44.3 fL (36.4-46.3) 05/22/22 20:52 RDW Coeff of Marcellus 14.9 % (11.5-14.5) H 05/22/22 20:52 Plt Count 221 K/uL (130-400) 05/22/22 20:52 MPV 10.1 fL (9.4-12.3) 05/22/22 20:52 Immature Gran % (Auto) 0.5 % 05/22/22 20:52 Neut % (Auto) 78.0 % 05/22/22 20:52 Lymph % (Auto) 11.9 % 05/22/22 20:52 Hanson % (Auto) 7.9 % 05/22/22 20:52 Eos % (Auto) 0.8 % 05/22/22 20:52 Baso % (Auto) 0.9 % 05/22/22 20:52 Neut # (Auto) 8.16 K/uL (1.4-6.5) H 05/22/22 20:52 Lymph # (Auto) 1.24 K/uL (1.2-3.4) 05/22/22 20:52 Hanson # (Auto) 0.82 K/uL (0.24-0.82) 05/22/22 20:52 Eos # (Auto) 0.08 K/uL (0-0.50) 05/22/22 20:52 Baso # (Auto) 0.09 K/uL (0-0.2) 05/22/22 20:52 Immature Gran # (Auto) 0.05 K/uL (0.00-0.02) H 05/22/22 20:52 PT 26.4 Seconds (9.0-12.0) H 05/22/22 20:52 INR 2.6 (0.9-1.1) H 05/22/22 20:52 APTT 41.0 Seconds (21.0-31.0) H 05/22/22 20:52 PTT Ratio 1.5 05/22/22 20:52 Sodium 132 mmol/L (136-145) L 05/22/22 20:52 Potassium 4.5 mmol/L (3.5-5.1) 05/22/22 20:52 Chloride 95 mmol/L (98-107) L 05/22/22 20:52 Carbon Dioxide 30 mmol/L (21-32) 05/22/22 20:52 Anion Gap 7 (3-11) 05/22/22 20:52 BUN 20 mg/dl (6-23) 05/22/22 20:52 Creatinine 1.02 mg/dl (0.6-1.2) 05/22/22 20:52 Est Cr Clr Drug Dosing Not Reportable 05/22/22 20:52 Est GFR ( Amer) 57.7 ml/min 05/22/22 20:52 Est GFR (Non-Af Amer) 49.8 ml/min 05/22/22 20:52 BUN/Creatinine Ratio 19.6 (10-20) 05/22/22 20:52 Glucose 108 mg/dl (70-99(Fasting)) H 05/22/22 20:52 Calcium 9.2 mg/dl (8.5-10.1) 05/22/22 20:52 Magnesium 1.9 mg/dl (1.7-2.4) 05/22/22 20:52 Total Bilirubin 0.5 mg/dl (0.2-1.0) 05/22/22 20:52 AST 34 U/L (13-39) 05/22/22 20:52 ALT 29 U/L (7-52) 05/22/22 20:52 Alkaline Phosphatase 187 U/L (34-104) H 05/22/22 20:52 Troponin I High Sens 13.4 pg/ml (0-14) 05/22/22 20:52 B-Natriuretic Peptide 996 pg/ml (0-100) H 05/22/22 20:52 Total Protein 6.8 gm/dl (6.0-8.3) 05/22/22 20:52 Albumin 3.7 gm/dl (3.4-5.0) 05/22/22 20:52 Globulin 3.1 gm/dl (2.5-4.0) 05/22/22 20:52 Albumin/Globulin Ratio 1.2 (0.9-2) 05/22/22 20:52 TSH 3.119 uIu/ml (0.300-4.500) 05/22/22 20:52 SARS-CoV-2, RNA, NAAT NEGATIVE (NEGATIVE) 05/22/22 22:29 Impressions Chest X-Ray 05/22/22 18:52 XR chest 1V portable HISTORY: 86 years-old Female SOB acute shortness of breath COMPARISON: Chest radiograph 03/19/2022 TECHNIQUE: Portable AP view of the chest FINDINGS: Cardiac silhouette is enlarged. Small pleural effusions with bibasilar consolidation. Pulmonary vascular congestion with interstitial coarsening. Calcified plaque of the thoracic aorta. No pneumothorax.. Degenerative changes of the shoulders and spine. IMPRESSION: 1. Cardiomegaly with mild pulmonary edema. 2. Small pleural effusions with bibasilar consolidation suggestive of at electasis versus pneumonia. ACT 112: Negative or not required by law. The above report was generated using voice recognition software. It may contain grammatical, syntax or spelling errors. Electronically signed by: Gm Younger M.D. 05/22/2022 8:31 PM Diagnostic Findings EKG as per my interpretation : Rate 95, A. fib, RAD, T wave flattening lateral leads, low voltage
[2022-05-22] MEDS ORDERED: traMADol HCL 50 MG TABLET PO PRN (23:22)
[2022-05-22] MEDS ORDERED: PROMETHAZINE HCL 12.5 MG in SODIUM CHLORIDE 0.9% 50 ML IV PRN (23:22)
[2022-05-22] MEDS ORDERED: DOXYCYCLINE HYCLATE 100 MG CAP PO STA (23:22)
[2022-05-23] MEDS ORDERED: ACETAMINOPHEN 325 MG TAB PO PRN (01:12)
[2022-05-23] MEDS ORDERED: SIMETHICONE 80 MG CHEW PO PRN (01:12)
[2022-05-23] MEDS ORDERED: NITROGLYCERIN SL 0.4 MG/TAB TAB SL PRN (01:12)
[2022-05-23] MEDS ORDERED: oxyCODONE HCL IR 5 MG TAB (IMMEDIATE RELEASE) PO PRN (01:12)
[2022-05-23 06:36] LABS: Basophils # (auto) 0.08 K/uL (0-0.2); Basophils % (auto) 0.9 %; Eosinophils # (auto) 0.04 K/uL (0-0.50); Eosinophils % (auto) 0.4 %; Hematocrit (blood only) 32.9 % (34.1-44.9); Hemoglobin 10.3 g/dl (12.0-16.0); Immature Granulocytes # (auto) 0.03 K/uL (0.00-0.02); Immature Granulocytes % (auto) 0.3 %; Lymphocytes # (auto) 1.58 K/uL (1.2-3.4); Lymphocytes % (auto) 16.9 %; Mean Corpuscular Hemoglobin 24.7 pg (25.0-34.0); Mean Corpuscular Hgb Conc 31.3 g/dL (32.0-36.0); Mean Corpuscular Volume 78.9 fL (80.0-100.0); Mean Platelet Volume 10.2 fL (9.4-12.3); Monocytes # (auto) 0.83 K/uL (0.24-0.82); Monocytes % (auto) 8.9 %; Neutrophils # (auto) 6.81 K/uL (1.4-6.5); Neutrophils % (auto) 72.6 %; Platelet Count 215 K/uL (130-400); RDW Coefficient of Variation 15.1 % (11.5-14.5); RDW Standard Deviation 43.2 fL (36.4-46.3); Red Blood Count 4.17 M/uL (3.93-5.22); White Blood Count 9.37 K/ul (4.8-10.8)
[2022-05-23 06:54] LABS: INR 2.2 (0.9-1.1); Prothrombin Time 22.4 Seconds (9.0-12.0)
[2022-05-23 07:08] LABS: Appearance Urine Clear (Clear); Bacteria Urine Automated Negative (Negative); Bilirubin Urine Negative (Negative); Blood Urine 3+ (Negative); Color Urine Yellow; Epithelial Cell Urine Auto >30 /lpf (0-5); Glucose Urine UA Negative (Negative); Ketones Urine Negative (Negative); Leukocyte Esterase Urine 2+ (Negative); Nitrite Urine Negative (Negative); Protein Urine Trace (Negative); RBC Urine Automated >30 /hpf (0-4); Specific Gravity Urine 1.013 (1.000-1.030); Urobilinogen Urine Negative (Negative)
[2022-05-23 07:14] LABS: BUN Creatinine Ratio 20.9 (10-20); Calcium 8.9 mg/dl (8.5-10.1); Creatinine Clr Calc Pharmacy 49.5 ml/min; Est GFR (African American) 66.2 ml/min; Est GFR (Non-African American) 57.1 ml/min; Potassium 4.2 mmol/L (3.5-5.1)
[2022-05-23 07:32] LABS: Creatinine Urine Random 63.6 mg/dl; Protein Creatinine Ratio Urine 0.3 (0-0.2); Total Protein Urine Random 20.6 mg/dl (0-11.9)
[2022-05-23] MEDS: DOXYCYCLINE HYCLATE 100 MG CAP PO SCH ×2 (08:01→20:33)
[2022-05-23] MEDS: METOPROLOL SUCC 50MG EXT REL TAB PO SCH (08:01)
[2022-05-23] MEDS: MULTIVITAMIN TAB PO SCH (08:01)
[2022-05-23] MEDS: allopurinoL 100 MG TAB PO SCH (08:01)
[2022-05-23] MEDS: SENNA 8.6 MG TAB PO SCH (08:02)
[2022-05-23] MEDS ORDERED: FUROSEMIDE 40 MG/4 ML VIAL IV SCH (09:00)
--- NOTE | 2022-05-23 09:45 | Cardiology Consultation ---
Date of Consultation May 23, 2022 History of Present Illness Reason for Consultation: In reviewing the outside records she has had progressive Lower extremity edema and anasarca. This started after her hip replacement continued with her most recent surgery at [facility] to remove ovarian mass. She has had progressive heaviness in her legs with an inability to walk and notes that the hip fracture needs to be be repaired again at some point. She has had a dry cough which is nonproductive. She denies any fevers or chills or sweats. She denies any chest pain or chest pressure. She denies any palpitations and has been relatively asymptomatic with her chronic atrial fibril lation. She does have some easy bruising but denies any dark black tarry stools or blood in her stool. She has had orthopnea and is now sleeping in a chair as she cannot lay down if she feels short of breath. The rest of a complete her systems otherwise negative EXAM: HEENT I had a hard time appreciating her carotid upstrokes Lungs: Decreased breath sounds in the bases bilaterally with deep inspiration she had a cough Heart: Irregular rate and rhythm no appreciable murmurs or rubs Abdomen: Soft distended positive bowel sounds nontender Extremities Marked pitting edema to her thighs and even to her sacrum. Psychiatric. She appeared tearful given everything she has been through this summer. Her inpatient records and outpatient records are reviewed as well as her laboratory studies and diagnostic studies IMPRESSIONS: (1) Edema: 2. CAD -- post anterior lateral STEMI in 2008--CCS class 1 symptoms 3. Persistent atrial fibrillation--asymptomatic, rate controlled, on anticoagulation 4. Peripheral artery disease including carotid artery disease status post endarterectomy September 2015; post EVAR, followed by vascular surgery at [facility] 5. Prior ischemic cardiomyopathy-- I agree she needs an echocardiogram. I would continue with IV diuretics. Her serum sodium seems to be improving and her renal function is stable with her being negative about 1800 cc yesterday. I would try for approximately 2000 cc a day being negative. Will await nephrology's input with regards to whether she may have nephrotic syndrome but her albumin is relatively normal which would go against this. I did have a difficult time assessing her carotid upstroke which raises the question as to whether she has Recurrence of LV dysfunction and this is worsening heart failure. She has chronic atrial fibrillation the rate is controlled on beta-blockers and she remains on low-dose warfarin. At this point her blood pressure is stable and she denies any orthostatic symptoms. History of Present Illness: Patient with history of coronary artery disease status post anterolateral STEMI in 2008 secondary to acute occlusion of small 1st diagonal managed medically, ischemic cardiomyopathy with prior heart failure now with resolved LV dysfunction, persistent atrial fibrillation, peripheral artery disease status post carotid endarterectomy in September 2015, prior EVAR for AAA, and prior acute limb ischemia in 2010 status post right SFA embolectomy, chronic kidney disease. Hospitalized 01/2022 after mechanical fall with resulting left hip fracture treat ed with intramedullary nail with Dr. Loyola. Hospital course complicated by anemia and A. fib with RVR which improved with resuming home metoprolol. [facility]. Prior cardiovascular studies Pharmacologic SPECT (09/2015): Apical infarct otherwise no significant signs of ischemia unable to assess LV function due to gating artifact with atrial fibrillation. Echo (12/2011): Normal LV function, EF 55 percent, distal anterior lateral, apical anterior hypokinesis to akinesis. Mild RV dilation with normal RV function, mild TR. Cardiac catheterization (05/2009): Left main with no significant disease, lad with 60 percent mid disease, small 1st diagonal with 99 percent mid, not amenable to PCI. Circumflex codominant with no significant disease. RCA with 60 percent mid stenosis otherwise no significant disease. Attending Physician: Natalie Coleman, Allergies Allergy/AdvReac Type Severity Reaction Status Date / Time cefuroxime Allergy Intermediate HIVES Verified 03/19/22 12:24 cefdinir Allergy Unknown Unverified 03/19/22 12:24 Home Medications Medication Instructions Recorded Confirmed Type atorvastatin 40 mg tablet 40 mg PO QPM #30 tabs 06/30/19 05/22/22 History multivitamin (Daily Multi-Vitamin 1 tab PO QAM 06/30/19 05/22/22 History tablet) nitroglycerin 0.4 mg sublingual 0.4 mg sublingual Q5M PRN chest 06/30/19 05/22/22 History tablet pain warfarin 1 mg tablet 1 mg PO .COMPLEX #180 tabs 01/12/22 05/22/22 Rx allopurinol 100 mg tablet 100 mg PO QAM 01/30/22 05/22/22 History diphenoxylate-atropine 2.5 1 tab PO Q6 PRN Diarrhea 01/30/22 05/22/22 History mg-0.025 mg tablet (Lomotil) ferrous sulfate 325 mg (65 mg 325 mg PO DAILY 01/30/22 05/22/22 History iron) tablet cholecalciferol (vitamin D3) 25 50 mcg PO DAILY #0 tabs 02/06/22 05/22/22 Rx mcg (1,000 unit) tablet (Vitamin D3) metoprolol succinate 25 mg 50 mg PO DAILY 03/19/22 05/22/22 History tablet,extended release 24 hr valsartan 80 mg tablet 80 mg PO DAILY #90 tabs 03/25/22 05/22/22 Rx furosemide 40 mg tablet 40 mg PO DAILY PRN weight gain #90 05/20/22 05/22/22 Rx tabs oxycodone 5 mg tablet 5 mg PO Q6 PRN Pain 05/22/22 05/22/22 History sennosides 8.6 mg tablet (senna) 8.6 mg PO QAM 05/22/22 05/22/22 History simethicone 80 mg chewable tablet 80 mg PO Q8 PRN .gas 05/22/22 05/22/22 History torsemide 10 mg tablet 10 mg PO QAM 05/22/22 05/22/22 History Patient History Medical History Aneurysm of abdominal aorta Anticoagulant long-term use Arteriosclerosis of carotid artery Atrial fibrillation, persistent Basal cell cancer CAD (coronary artery disease) Chronic renal insufficiency Deep vein thrombosis of lower extremity Sick sinus syndrome Vertigo Surgical History H/O: hysterectomy S/P AAA repair Social History Smoking Status: Never smoker Hx Alcohol Use: No Hx Substance Use: No Preferred Language: Slovenian Communication Ability: Effective Registered Respiratory Therapist Required: No Beliefs That Will Affect Care: None marital status: / Current Living Situation: Other Current Living Situation Comment: has been living with her daughter argentina since February current occupational status: retired Feels Safe at Home: Yes Safety Concerns: Feels Safe At This Time Assistive Devices: None Results & Data ([facility]) Vital Signs (Past 12 Hours) Vital Signs Temp Pulse Pulse Resp BP BP Pulse Ox 05/23/22 07:00 85 05/23/22 08:00 05/23/22 08:01 36.8 C 74 20 130/85 90 05/23/22 03:08 36.3 C L 84 16 102/68 93 05/23/22 02:44 05/23/22 00:58 108 H 05/23/22 01:12 36.5 C 101 H 18 148/87 H 90 05/23/22 00:31 89 20 93 05/22/22 21:42 94 H 24 153/88 H 94 O2 Del Method O2 Flow Rate 05/23/22 07:00 05/23/22 08:00 Room Air 05/23/22 08:01 Room Air 05/23/22 03:08 Room Air 05/23/22 02:44 Room Air 05/23/22 00:58 05/23/22 01:12 Room Air 05/23/22 00:31 Nasal Cannula 3 05/22/22 21:42 Room Air
--- NOTE | 2022-05-23 10:49 | Electrocardiogram Report ---
Test Reason : Blood Pressure : / mmHG Vent. Rate : 093 BPM Atrial Rate : 083 BPM P-R Int : 000 ms QRS Dur : 080 ms QT Int : 326 ms P-R-T Axes : 000 109 108 degrees QTc Int : 405 ms Atrial fibrillation Possible Lateral infarct , age undetermined Nonspecific ST abnormality Abnormal ECG When compared with ECG of 19-MAR-2022 14:18, QRS axis Shifted right Possible Lateral infarct is now Present Nonspecific T wave abnormality no longer evident in Inferior leads QT has lengthened Confirmed by Kemal Joens ([id number]) on 05/23/2022 10:49:04 AM Referred By: REFERRED SELF Confirmed By:Kemal Jones
[2022-05-23] MEDS: FERROUS SULFATE 325 MG TAB PO SCH (12:07)
--- NOTE | 2022-05-23 12:27 | Hospitalist Progress Note ---
Date of Service May 23, 2022 Assessment & Plan (1) Acute heart failure with reduced ejection fraction and diastolic d ysfunction: Plan: Acute heart failure with reduced ejection fraction and diastolic dysfunction. Pulmonary hypertension likely contribuing. Continue diuretics administration intravenously, track strict I's and O's, low-salt diet, daily standing weights. Goal net -2 output daily. Appreciate cardiology commendations. (2) Anasarca: Plan: Likely secondary to heart failure with progressive symptoms since end of January 2022. Nephrotic syndrome considered however, no nephrotic range proteinuria is seen. Appreciate nephrology recommendations. Doubt this is nephrotic syndrome. Lasix was increased to 40 mg 4 times daily and potassium supplementation added. Fluid restriction liberalized to 1.2 L. Patient has had longstanding edema that has been refractory to outpatient diuretic therapy. Portal venous thrombosis less likely given ongoing anticoagulation, however, may consider right upper quadrant ultrasound with Doppler to rule this out. Trend LFTs. (3) Atrial fibrillation, persistent: Plan: Asymptomatic, rate controlled, on warfarin for anticoagulation. (4) Bilateral lower leg cellulitis: Plan: May be secondary cellulitis secondary to chronic swelling over the last several months. Continue doxycycline at this time. (5) Anticoagulant long-term use: Plan: On warfarin for atrial fibrillation. (6) AAA (abdominal aortic aneurysm): Plan: Most recent CT abdomen in March 2022 reveals an aortobiiliac stent graft is in place and widely patent with residual aneurysm sac measuring 4.2 x 5.1 cm and with evidence of endoleak. (7) CAD (coronary artery disease): Plan: Carotid artery disease status post endarterectomy in September 2015; post EVAR followed by vascular surgery at [facility]. (8) Peripheral arterial disease: (9) DVT prophylaxis: Plan: INR is therapeutic with warfarin Full code [facility]position-[facility] and [facility]ated Discharge Date Admission Date: May 22, 2022 Subjective 86 yo F presents with progressive SOB and dry cough along with anasarca. Although symptoms have been reported since end of january when she fractured her hip requiring surgery, symptoms became much worse since Wed of this week (4 days ago) denies chest pain +cough, nonproductive mahan in place still having SOB but improved since yesterday. Review of Systems Review of Systems: All systems were reviewed and negative except as indicated on subjective above. Physical Exam Physical Exam: CONSTITUTIONAL: WNWD, vitals as above, generally well- appearing, NAD EYES: normal conjunctivae, no scleral icterus ENT: external ear and nose normal, MMM NECK: trachea midline, RESPIRATORY: + crackles at lung bases bilaterally, no rales or wheezes, normal respiratory effort CARDIOVASCULAR: regular rate and rhythm, S1 and 2 heard without murmurs, gallops or rubs, no JVD, +3 pitting edema to sacrum in bilateral lower extremities. There is an erythema to the distal lower extremities that is confluent. CHEST: inspection of chest was normal GASTROINTESTINAL: soft, nontender, ND, no guarding MUSCULOSKELETAL: strength 5/5 throughout, head is normocephalic and atraumatic SKIN: warm and dry NEUROLOGIC: CN 2-12 grossly intact, no sensory deficit, normal cognition, normal speech, no tremor PSYCHIATRIC: alert cooperative and oriented to person, place and time. Euthymic mood, makes good eye contact, language grossly intact, recent and remote memory grossly intact. Results & Data Results & Data ([facility]) Vital Signs (Past 12 Hours) Vital Signs Temp Pulse Pulse Resp BP BP Pulse Ox 05/23/22 11:56 36.6 C 86 20 147/72 H 05/23/22 07:00 85 05/23/22 08:00 05/23/22 08:01 36.8 C 74 20 130/85 90 05/23/22 03:08 36.3 C L 84 16 102/68 93 05/23/22 02:44 05/23/22 00:58 108 H 05/23/22 01:12 36.5 C 101 H 18 148/87 H 90 05/23/22 00:31 89 20 93 O2 Del Method O2 Flow Rate 05/23/22 11:56 05/23/22 07:00 05/23/22 08:00 Room Air 05/23/22 08:01 Room Air 05/23/22 03:08 Room Air 05/23/22 02:44 Room Air 05/23/22 00:58 05/23/22 01:12 Room Air 05/23/22 00:31 Nasal Cannula 3 Laboratory Results Short CBC 05/22/22 05/23/22 Range/Units 20:52 06:21 WBC 10.44 9.37 (4.8-10.8) K/ul Hgb 11.0 L 10.3 L (12.0-16.0) g/dl Hct 36.3 32.9 L (34.1-44.9) % Plt Count 221 215 (130-400) K/uL BMP 05/22/22 05/23/22 20:52 06:21 Sodium 132 L 135 L Potassium 4.5 4.2 Chloride 95 L 96 L Carbon Dioxide 30 31 BUN 20 19 Creatinine 1.02 0.91 Glucose 108 H 95 Calcium 9.2 8.9 Liver Function 05/22/22 Range/Units 20:52 Total Bilirubin 0.5 (0.2-1.0) mg/dl AST 34 (13-39) U/L ALT 29 (7-52) U/L Alkaline Phosphatase 187 H (34-104) U/L Albumin 3.7 (3.4-5.0) gm/dl Urine 05/23/22 Range/Units 06:40 Urine Color Yellow Urine Appearance Clear (Clear) Urine pH 7.0 (4.5-7.5) Ur Specific [place] 1.013 (1.000-1.030) Urine Protein Trace H (Negative) Urine Glucose (UA) Negative (Negative) Medications Administered Current Inpatient Medications Acetaminophen (Acetaminophen 325 Mg Tab) 650 mg PO Q4H PRN PRN Reason: Pain or Fever Stop: 06/22/22 01:11 Allopurinol (Allopurinol 100 Mg Tab) 100 mg PO QAM RICK Stop: 06/22/22 08:59 Last Admin: 05/23/22 08:01 Dose: 100 mg Atorvastatin Calcium (Atorvastatin 40 Mg Tab) 40 mg PO QPM RICK Stop: 06/22/22 20:59 Doxycycline Hyclate (Doxycycline Hyclate 100 Mg Cap) 100 mg PO BID RICK Stop: 05/30/22 08:59 Last Admin: 05/23/22 08:01 Dose: 100 mg Ferrous Sulfate (Ferrous Sulfate 325 Mg Tab) 325 mg PO DAILY@1130 [facility] Stop: 06/22/22 11:29 Last Admin: 05/23/22 12:07 Dose: 325 mg Furosemide (Furosemide 40 Mg/4 Ml Vial) 40 mg IV [id number] RICK Stop: 06/22/22 08:59 Last Admin: 05/23/22 08:02 Dose: 40 mg Promethazine HCl 12.5 mg/ (Sodium Chloride) 50.5 mls @ 202 mls/hr IV Q6H PRN PRN Reason: Nausea And Vomiting Stop: 06/21/22 23:21 Metoprolol Succinate (Metoprolol Succ 50mg Ext Rel Tab) 50 mg PO DAILY RICK Stop: 06/22/22 08:59 Last Admin: 05/23/22 08:01 Dose: 50 mg Multivitamins (Multivitamin Tab) 1 tab PO QAM RICK Stop: 06/22/22 08:59 Last Admin: 05/23/22 08:01 Dose: 1 tab Nitroglycerin (Nitroglycerin Sl 0.4 Mg/Tab Tab) 0.4 mg SL Q5M PRN PRN Reason: chest pain Stop: 06/22/22 01:11 Oxycodone HCl (Oxycodone Hcl Ir 5 Mg Tab (Immediate Release)) 5 mg PO Q6 PRN PRN Reason: Pain Stop: 06/06/22 01:11 Sennosides (Senna 8.6 Mg Tab) 8.6 mg PO QAM [facility] Stop: 06/22/22 08:59 Last Admin: 05/23/22 08:02 Dose: Not Given Simethicone (Simethicone 80 Mg Chew) 80 mg PO Q8 PRN PRN Reason: .gas Stop: 06/22/22 01:11 Tramadol HCl (Tramadol Hcl 50 Mg Tablet) 25 - 50 mg PO Q4H PRN PRN Reason: Pain Stop: 06/21/22 23:21
--- NOTE | 2022-05-23 14:00 | Nephrology Consultation ---
Date of Consultation May 23, 2022 Assessment & Plan (1) Anasarca: doubt this is nephrotic syndrome given spot prot/creat ratio and albumin but will continue to monitor. 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 her renal function is actually better than baseline on these labs though suspect creatinine like sodium (and possibly her CBC lines) look artificially good d/t dilution w/ excess fluid -increased lasix to 40 mg qid -supplemented K 20 mEq bid -BMP bid for now > repeat ordered for 1699 -continue mahan -liberalized FR to 1.2L -ordered <2 gm daily Na -placed dietary consult >> on high K/low Na food choices >>urine culture pending >> however this is not likely clean catch (based on hematuria in pt on coumadin) and mahna placement despite inflammation; also no bacteria >> no UTI; interstitial nephritis or other processes certainly possibl e and will monitor but with normal creatinine focus for now on diuresis (2) CHF (congestive heart failure): diurese as above cardiology following > f/u their recs now w/ TTE posted >>>?sleep apnea eval given right HF? 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 PMH includes longstanding HTN, CKD3A, CAD, A Fib on coumadin, AAA repair 2008, emergent thrombectomy 2010, L carotid endarterectomy 2015, 50 pack year history tobacco use (quit 2008), hx of hyponatremia and hypokalemia needing OP follow up in past. She presented to reestablish care in CKD clinic on 05/20/22 with as of summer 2021 chronic fluid overload and with a complex series of recent medical events: -She fell and fractured her L hip in January 2022, status post surgical repair. She was able to walk for about 6 wks postoperatively but after a setback has since been instructed not to walk or to bear weight; needs L hip revision once volume status improved as of march -She was sent to [facility] ER by her hydration plant operator early March w/ volume overload refractory to increased lasix. CT scan w/ IV contrast remarkable for 26 cm cystic ovarian mass with mild right hydronephrosis and body wall edema. 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 -she had anasarca to the hips in CKD clinic but was only on 40 mg daily lasix po (had had a few days of 80 mg daily lasix intermittently though pt reported higher doses helped little) > I changed her lasix to torsemide 10 mg daily and followed her closely, w/ instructions to go immediately to ER for alarm sx. She came to ER last evening after developing wheezing and worsening dry cough. She had 40 mg IV lasix and was started on 40 mg IV bid lasix. 2.6L negative so far on the admission She was started on doxycycline po for possible PNA. Pt tells me her breathing is a bit better and that she certainly slept better; she notes little change in edema; no n/v, no chest pain/palpitations, no current rash; no lower urinary tract symptoms. Allergies Allergy/AdvReac Type Severity Reaction Status Date / Time cefuroxime Allergy Intermediate HIVES Verified 03/19/22 12:24 cefdinir Allergy Unknown Unverified 03/19/22 12:24 Home Medications Medication Instructions Recorded Confirmed Type atorvastatin 40 mg tablet 40 mg PO QPM #30 tabs 06/30/19 05/22/22 History multivitamin (Daily Multi-Vitamin 1 tab PO QAM 06/30/19 05/22/22 History tablet) nitroglycerin 0.4 mg sublingual 0.4 mg sublingual Q5M PRN chest 06/30/19 05/22/22 History tablet pain warfarin 1 mg tablet 1 mg PO .COMPLEX #180 tabs 01/12/22 05/22/22 Rx allopurinol 100 mg tablet 100 mg PO QAM 01/30/22 05/22/22 History diphenoxylate-atropine 2.5 1 tab PO Q6 PRN Diarrhea 01/30/22 05/22/22 History mg-0.025 mg tablet (Lomotil) ferrous sulfate 325 mg (65 mg 325 mg PO DAILY 01/30/22 05/22/22 History iron) tablet cholecalciferol (vitamin D3) 25 50 mcg PO DAILY #0 tabs 02/06/22 05/22/22 Rx mcg (1,000 unit) tablet (Vitamin D3) metoprolol succinate 25 mg 50 mg PO DAILY 03/19/22 05/22/22 History tablet,extended release 24 hr valsartan 80 mg tablet 80 mg PO DAILY #90 tabs 03/25/22 05/22/22 Rx furosemide 40 mg tablet 40 mg PO DAILY PRN weight gain #90 05/20/22 05/22/22 Rx tabs oxycodone 5 mg tablet 5 mg PO Q6 PRN Pain 05/22/22 05/22/22 History sennosides 8.6 mg tablet (senna) 8.6 mg PO QAM 05/22/22 05/22/22 History simethicone 80 mg chewable tablet 80 mg PO Q8 PRN .gas 05/22/22 05/22/22 History torsemide 10 mg tablet 10 mg PO QAM 05/22/22 05/22/22 History Patient History Medical History (Updated 05/23/22 @ 14:02 by Gissel Boo MD, PhD) Aneurysm of abdominal aorta Anticoagulant long-term use Arteriosclerosis of carotid artery Atrial fibrillation, persistent Basal cell cancer CAD (coronary artery disease) Chronic renal insufficiency Deep vein thrombosis of lower extremity Hip fracture, left closed; January 2022; s/p intermedullary nail Ovarian mass, left s/p April 2022 excision; 26 cm serous cystadenoma (benign) Sick sinus syndrome Vertigo Surgical History (Updated 05/23/22 @ 13:41 by Gissel Boo MD, PhD) H/O oophorectomy 26 x 22 x 16.5 cm large solid and cystic lesion filling the pelvis Ca 125: 74 CEA: 3.9 Ca 19-9: 7.9 History of prior hysterectomy and right salpingo-oophorectomy 04/20/2022: Exploratory laparotomy, left salpingo-oophorectomy, omentectomy and appendectomy. BENIGN pathology. H/O: hysterectomy S/P AAA repair Social History (Updated 05/23/22 @ 13:50 by Gissel Boo MD, PhD) Smoking Status: Former smoker Tobacco Type: Cigarettes packs per day: 1; Years Smoked: 50; Smoking End Date: 2009; Hx Alcohol Use: No Hx Substance Use: No Preferred Language: Nepalese Communication Ability: Effective Clinical Applications Specialist Required: No Beliefs That Will Affect Care: None marital status: / Current Living Situation: Other Current Living Situation Comment: has been living with her daughter [place] since February current occupational status: retired Feels Safe at Home: Yes Safety Concerns: Feels Safe At This Time Assistive Devices: None Review of Systems Review of Systems: All systems reviewed & are unremarkable except as noted in HPI & below Results & Data ([facility]) Vital Signs (Past 12 Hours) Vital Signs Temp Pulse Pulse Resp BP Pulse Ox O2 Del Method 05/23/22 11:56 36.6 C 86 20 147/72 H 05/23/22 07:00 85 05/23/22 08:00 Room Air 05/23/22 08:01 36.8 C 74 20 130/85 90 Room Air 05/23/22 03:08 36.3 C L 84 16 102/68 93 Room Air 05/23/22 02:44 Room Air Laboratory Results 05/23/22 06:21 05/23/22 06:21 UACM > 3+ blood, 2+ LE, 10-30 WBC, > 30 RBC and > 30 epi, no bacteria 300 mg proteinuria on spot ratio Diagnostic Findings cxr 1. Cardiomegaly with mild pulmonary edema. 2. Small pleural effusions with bibasilar consolidation suggestive of atelectasis versus pneumonia. TTE 05/23/22 EF 45%, no LVH; evidence of RV pressure elevation and overload; severe plm HTN PASP 65 TTE 2010 (in [employer] system) EF 35-40%
[2022-05-23] MEDS: POTASSIUM CHLORIDE CRTAB 20 MEQ TABCR PO SCH ×2 (15:05→20:33)
[2022-05-23] MEDS: FUROSEMIDE 40 MG/4 ML VIAL IV SCH ×2 (15:06→20:34)
[2022-05-23 17:24] LABS: Calcium 9.4 mg/dl (8.5-10.1); Est GFR (African American) 59.1 ml/min; Potassium 4.3 mmol/L (3.5-5.1)
[2022-05-23] MEDS: ATORVASTATIN 40 MG TAB PO SCH (20:33)
[2022-05-23] MEDS ORDERED: WARFARIN SOD 2 MG TAB PO STA (20:54)
[2022-05-24] MEDS: FUROSEMIDE 40 MG/4 ML VIAL IV SCH ×4 (02:23→20:05)
[2022-05-24 06:41] LABS: Hematocrit (blood only) 33.6 % (34.1-44.9); Hemoglobin 10.5 g/dl (12.0-16.0); Mean Corpuscular Hemoglobin 24.5 pg (25.0-34.0); Mean Corpuscular Hgb Conc 31.3 g/dL (32.0-36.0); Mean Corpuscular Volume 78.3 fL (80.0-100.0); Mean Platelet Volume 9.9 fL (9.4-12.3); Platelet Count 236 K/uL (130-400); RDW Coefficient of Variation 15.1 % (11.5-14.5); RDW Standard Deviation 42.8 fL (36.4-46.3); Red Blood Count 4.29 M/uL (3.93-5.22); White Blood Count 10.32 K/ul (4.8-10.8)
[2022-05-24 06:55] LABS: INR 1.9 (0.9-1.1); Prothrombin Time 19.3 Seconds (9.0-12.0)
[2022-05-24 07:02] LABS: Albumin Globulin Ratio 1.2 (0.9-2); Albumin Level 3.5 gm/dl (3.4-5.0); BUN Creatinine Ratio 21.9 (10-20); Bilirubin,Total 0.6 mg/dl (0.2-1.0); Calcium 9.2 mg/dl (8.5-10.1); Creatinine Clr Calc Pharmacy 46.2 ml/min; Est GFR (African American) 62.1 ml/min; Est GFR (Non-African American) 53.6 ml/min; Potassium 4.4 mmol/L (3.5-5.1); Total Protein 6.5 gm/dl (6.0-8.3)
[2022-05-24] MEDS: DOXYCYCLINE HYCLATE 100 MG CAP PO SCH ×2 (08:19→20:05)
[2022-05-24] MEDS: allopurinoL 100 MG TAB PO SCH (08:19)
[2022-05-24] MEDS: SENNA 8.6 MG TAB PO SCH (08:20)
[2022-05-24] MEDS: MULTIVITAMIN TAB PO SCH (08:20)
[2022-05-24] MEDS: POTASSIUM CHLORIDE CRTAB 20 MEQ TABCR PO SCH ×2 (08:20→20:05)
[2022-05-24] MEDS: FERROUS SULFATE 325 MG TAB PO SCH (10:41)
[2022-05-24] MEDS: METOPROLOL SUCC 50MG EXT REL TAB PO SCH (10:41)
--- NOTE | 2022-05-24 12:29 | Cardiology Progress Note ---
Date of Service May 24, 2022 Assessment & Plan Admission and Anticipated Discharge Date Admission Date: May 22, 2022 Subjective She appears less short of breath today. Her lower extremity edema has improved her thighs are less firm as well as her abdomen. She appears less short of breath talking in sentences. She has any lightheadedness or dizziness. She denies any chest pain. She still has a cough. She notes she had a reasonably good night of sleep. Her appetite appears to be improving Results & Data ([facility]) Vital Signs (Past 12 Hours) Vital Signs Temp Pulse Pulse Resp BP Pulse Ox O2 Del Method 05/24/22 07:00 85 05/24/22 03:36 36.6 C 85 16 120/83 91 Room Air HEENT I had a hard time appreciating her carotid upstrokes Lungs: Decreased breath sounds in the bases bilaterally with deep inspiration she had a cough Heart: Irregular rate and rhythm no appreciable murmurs or rubs Abdomen: Soft distended positive bowel sounds nontender Extremities Marked pitting edema to her thighs Which is much softer today Psychiatric.Her affect was improved today Her inpatient records and outpatient records are reviewed as well as her laboratory studies and diagnostic studies IMPRESSIONS: (1) Edema: 2. CAD -- post anterior lateral STEMI in 2008--CCS class 1 symptoms 3. Persistent atrial fibrillation--asymptomatic, rate controlled, on anticoagulation 4. Peripheral artery disease including carotid artery disease status post endarterectomy September 2015; post EVAR, followed by vascular surgery at [facility] 5. Prior ischemic cardiomyopathy--LVEF 45% this admission 6. Severe Pulmonary HTN Her edema and echocardiogram are both consistent with diastolic heart failure leading to right-sided heart failure. She is -3 L over the last 24 hours and -2 L the day prior to that. Although her bicarb is up she still is not excessively prerenal based on her laboratory studies. I would continue with her IV diuretics. I did add 12 and half milligrams of Aldactone Not only to conserve potassium but also to suppress her renin aldosterone system. Spironolactone is very good for right-sided heart failure. Depending on how much she is negative today we may may need to reduce her IV Lasix to daily tomorrow. As I discussed with her she probably still has at least 15 pounds of water weight to be removed. Dr. Pimentel will return tomorrow. She needs a BMP and a magnesium level tomorrow. All this was discussed with the patient and her daughter.
[2022-05-24] MEDS: SPIRONOLACTONE 12.5 MG TAB PO SCH (13:52)
--- NOTE | 2022-05-24 14:11 | Hospitalist Progress Note ---
Date of Service May 24, 2022 Assessment & Plan (1) Acute heart failure with reduced ejection fraction and diastolic d ysfunction: Plan: Acute heart failure with reduced ejection fraction and diastolic dysfunction. Pulmonary hypertension likely contribuing. Continue diuretics administration intravenously, track strict I's and O's, low-salt diet, daily standing weights. Goal net -2 output daily; today she was -3L out. Cont current diuretic therapy. (2) Anasarca: Plan: Lasix was increased to 40 mg 4 times daily and potassium supplementation added. Fluid restriction liberalized to 1.2 L. Patient has had longstanding edema that has been refractory to outpatient diuretic therapy. (3) Atrial fibrillation, persistent: Plan: Asymptomatic, rate controlled, on warfarin for anticoagulation. (4) Bilateral lower leg cellulitis: Plan: May be secondary cellulitis secondary to chronic swelling over the last several months. Continue doxycycline at this time. (5) Anticoagulant long-term use: Plan: On warfarin for atrial fibrillation. (6) AAA (abdominal aortic aneurysm): Plan: Most recent CT abdomen in March 2022 reveals an aortobiiliac stent graft is in place and widely patent with residual aneurysm sac measuring 4.2 x 5.1 cm and with evidence of endoleak. (7) CAD (coronary artery disease): Plan: Carotid artery disease status post endarterectomy in September 2015; post EVAR followed by vascular surgery at [facility]. (8) Peripheral arterial disease: Plan: chronic, stable. Cont Medical management. (9) Post-operative state: Plan: Limited weight bearing on left leg s/p left hip surgery in January. She reports there is possible loose hardware present. Will review records. PT/OT ith restrictions. (10) DVT prophylaxis: Plan: warfarin Full code Disposition-PCU Natalie Coleman DO [facility] Hospitalist Admission and Anticipated Discharge Date Admission Date: May 22, 2022 Subjective 86 yo F presents with progressive SOB and dry cough along with anasarca. Although symptoms have been reported since end of january when she fractured her hip requiring surgery, symptoms became much worse since Wed of this week (4 days ago) denies chest pain cough improved feels last trimmer and breathing easier SOB is improved -3L out informed me she is restricted from bearing weight on her left hip because of a hardware issue. daughter at bedside and is updated. Review of Systems Review of Systems: All systems were reviewed and negative except as indicated on subjective above. Physical Exam Physical Exam: CONSTITUTIONAL: WNWD, vitals as above, generally well- appearing, NAD EYES: normal conjunctivae, no scleral icterus ENT: external ear and nose normal, MMM NECK: trachea midline, RESPIRATORY: clear to auscultation throughout, no rales or wheezes, normal respiratory effort CARDIOVASCULAR: regular rate and rhythm, S1 and 2 heard without murmurs, gallops or rubs, no JVD, +1 pitting edema to sacrum in bilateral lower extr emities-improved. There is an erythema to the distal lower extremities that is confluent-improved today to very light pink. CHEST: inspection of chest was normal GASTROINTESTINAL: soft, nontender, ND, no guarding MUSCULOSKELETAL: strength 5/5 throughout, head is normocephalic and atraumatic SKIN: warm and dry NEUROLOGIC: CN 2-12 grossly intact, no sensory deficit, normal cognition, normal speech, no tremor PSYCHIATRIC: alert cooperative and oriented to person, place and time. Euthymic mood, makes good eye contact, language grossly intact, recent and remote memory grossly intact. Results & Data Results & Data ([facility]) Vital Signs (Past 12 Hours) Vital Signs Temp Pulse Pulse Resp BP BP Pulse Ox 05/24/22 13:30 36.6 C 74 18 112/76 96 05/24/22 07:00 85 05/24/22 03:36 36.6 C 85 16 120/83 91 O2 Del Method 05/24/22 13:30 Room Air 05/24/22 07:00 05/24/22 03:36 Room Air Laboratory Results Short CBC 05/24/22 Range/Units 05:55 WBC 10.32 (4.8-10.8) K/ul Hgb 10.5 L (12.0-16.0) g/dl Hct 33.6 L (34.1-44.9) % Plt Count 236 (130-400) K/uL BMP 05/23/22 05/24/22 16:48 05:55 Sodium 135 L 135 L Potassium 4.3 4.4 Chloride 93 L 93 L Carbon Dioxide 33 H 34 H BUN 20 21 Creatinine 1.00 0.96 Glucose 95 100 H Calcium 9.4 9.2 Liver Function 05/24/22 Range/Units 05:55 Total Bilirubin 0.6 (0.2-1.0) mg/dl AST 21 (13-39) U/L ALT 21 (7-52) U/L Alkaline Phosphatase 172 H (34-104) U/L Albumin 3.5 (3.4-5.0) gm/dl Medications Administered Current Inpatient Medications Acetaminophen (Acetaminophen 325 Mg Tab) 650 mg PO Q4H PRN PRN Reason: Pain or Fever Stop: 06/22/22 01:11 Allopurinol (Allopurinol 100 Mg Tab) 100 mg PO QAM COUNT INCLUDES THE [facility] Stop: 06/22/22 08:59 Last Admin: 05/24/22 08:19 Dose: 100 mg Atorvastatin Calcium (Atorvastatin 40 Mg Tab) 40 mg PO QPM RICK Stop: 06/22/22 20:59 Last Admin: 05/23/22 20:33 Dose: 40 mg Doxycycline Hyclate (Doxycycline Hyclate 100 Mg Cap) 100 mg PO BID COUNT INCLUDES THE [facility] Stop: 05/30/22 08:59 Last Admin: 05/24/22 08:19 Dose: 100 mg Ferrous Sulfate (Ferrous Sulfate 325 Mg Tab) 325 mg PO DAILY@1130 COUNT INCLUDES THE [facility] Stop: 06/22/22 11:29 Last Admin: 05/24/22 10:41 Dose: 325 mg Furosemide (Furosemide 40 Mg/4 Ml Vial) 40 mg IV Q6H COUNT INCLUDES THE [facility] Stop: 06/22/22 14:14 Last Admin: 05/24/22 13:52 Dose: 40 mg Promethazine HCl 12.5 mg/ (Sodium Chloride) 50.5 mls @ 202 mls/hr IV Q6H PRN PRN Reason: Nausea And Vomiting Stop: 06/21/22 23:21 Metoprolol Succinate (Metoprolol Succ 50mg Ext Rel Tab) 50 mg PO DAILY COUNT INCLUDES THE [facility] Stop: 06/22/22 08:59 Last Admin: 05/24/22 10:41 Dose: 50 mg Multivitamins (Multivitamin Tab) 1 tab PO QAM COUNT INCLUDES THE [facility] Stop: 06/22/22 08:59 Last Admin: 05/24/22 08:20 Dose: 1 tab Nitroglycerin (Nitroglycerin Sl 0.4 Mg/Tab Tab) 0.4 mg SL Q5M PRN PRN Reason: chest pain Stop: 06/22/22 01:11 Oxycodone HCl (Oxycodone Hcl Ir 5 Mg Tab (Immediate Release)) 5 mg PO Q6 PRN PRN Reason: Pain Stop: 06/06/22 01:11 Potassium Chloride (Potassium Chloride Crtab 20 Meq Tabcr) 20 meq PO BID RICK Stop: 06/22/22 14:09 Last Admin: 05/24/22 08:20 Dose: 20 meq Sennosides (Senna 8.6 Mg Tab) 8.6 mg PO QAM RICK Stop: 06/22/22 08:59 Last Admin: 05/24/22 08:20 Dose: Not Given Simethicone (Simethicone 80 Mg Chew) 80 mg PO Q8 PRN PRN Reason: .gas Stop: 06/22/22 01:11 Spironolactone (Spironolactone 12.5 Mg Tab) 12.5 mg PO DAILY RICK Stop: 06/23/22 12:59 Last Admin: 05/24/22 13:52 Dose: 12.5 mg Tramadol HCl (Tramadol Hcl 50 Mg Tablet) 25 - 50 mg PO Q4H PRN PRN Reason: Pain Stop: 06/21/22 23:21
--- NOTE | 2022-05-24 14:19 | Nephrology Progress Note ---
Date of Service May 24, 2022 Assessment & Plan (1) Anasarca: Plan: doubt this is nephrotic syndrome given spot prot/creat ratio and albumin but will continue to monitor. 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 or/and CT chest given plm HTN/R HF/tobacco hx (3) Painful orthopaedic hardware: Plan: last OP note states no Wt bearing; not sure of current status but will alert hospitalist Admission and Anticipated Discharge Date Admission Date: May 22, 2022 Subjective breathing much better; less cough, longer/deeper inspirations possible, no wheeze;edema softening but still signfiicant. eatingwell; up in chair; walked a bit in room Review of Systems Review of Systems: All systems reviewed & are unremarkable except as noted in Subjective Physical Exam Constitutional: well developed and well nourished; no acute distress up in chair on RA Eyes: EOM intact bilaterally ENMT: Ears: no external ear abnormality Nose: no external nose abnormality Mouth: + dry oral mucous membranes Neck: no nuchal rigidity Respiratory: normal respiratory effort Auscultation: lungs clear to auscultation bilaterally and + diminished lung sounds Cardiovascular: Rate/Rhythm: + irregularly irregular Extremities: + edema (3+ to hips less indurated) Gastrointestinal (Abdomen): Inspection/Auscultation: normal bowel sounds Percussion/Palpation: abdomen soft; abdomen nontender Musculoskeletal: Extremities: strength 5/5 throughout Skin: no rashes, warm and dry Neurologic: funez, fluent speech, no tremor Psychiatric: Orientation: oriented x 3 Results & Data ([facility]) Vital Signs (Past 12 Hours) Vital Signs Temp Pulse Pulse Resp BP BP Pulse Ox 05/24/22 13:30 36.6 C 74 18 112/76 96 05/24/22 07:00 85 05/24/22 03:36 36.6 C 85 16 120/83 91 O2 Del Method 05/24/22 13:30 Room Air 05/24/22 07:00 05/24/22 03:36 Room Air Laboratory Results 05/24/22 05:55 05/24/22 05:55
[2022-05-24] MEDS ORDERED: WARFARIN SOD 2 MG TAB PO STA (18:58)
[2022-05-24] MEDS: ATORVASTATIN 40 MG TAB PO SCH (20:05)
[2022-05-25] MEDS: FUROSEMIDE 40 MG/4 ML VIAL IV SCH ×5 (02:14→16:58)
[2022-05-25 06:34] LABS: INR 2.2 (0.9-1.1)
[2022-05-25 06:46] LABS: BUN Creatinine Ratio 26.3 (10-20); Creatinine Clr Calc Pharmacy 45.4 ml/min; Est GFR (African American) 62.9 ml/min; Est GFR (Non-African American) 54.2 ml/min; Magnesium 1.8 mg/dl (1.7-2.4); Potassium 3.8 mmol/L (3.5-5.1)
[2022-05-25] MEDS: METOPROLOL SUCC 50MG EXT REL TAB PO SCH (08:40)
[2022-05-25] MEDS: POTASSIUM CHLORIDE CRTAB 20 MEQ TABCR PO SCH ×2 (08:40→20:10)
[2022-05-25] MEDS: MULTIVITAMIN TAB PO SCH (08:40)
[2022-05-25] MEDS: DOXYCYCLINE HYCLATE 100 MG CAP PO SCH ×2 (08:40→20:10)
[2022-05-25] MEDS: allopurinoL 100 MG TAB PO SCH (08:41)
[2022-05-25] MEDS: SPIRONOLACTONE 12.5 MG TAB PO SCH (08:41)
[2022-05-25] MEDS: SENNA 8.6 MG TAB PO SCH (08:43)
--- NOTE | 2022-05-25 10:20 | Nephrology Progress Note ---
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 her renal function remains actually better than baseline though suspect creatinine like sodium (and possibly her CBC lines) look artificially good d/t dilution w/ excess fluid. tolerating diuresis well. doubt this is nephrotic syndrome given spot prot/creat ratio and albumin but will continue to monitor. 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 or/and CT chest given plm HTN/R HF/tobacco hx (3) Painful orthopaedic hardware: Plan: last OP note states no Wt bearing; not sure of current status but will alert hospitalist Admission and Anticipated Discharge Date Admission Date: May 22, 2022 Subjective seen on rounds 1050 this am > legs diong much better; able to get teds on still lot s of swelling. sbp did drop some this PM > lasix as below Review of Systems Review of Systems: All systems reviewed & are unremarkable except as noted in Subjective Physical Exam Constitutional: well developed and well nourished; no acute distress Eyes: EOM intact bilaterally ENMT: Ears: no external ear abnormality Nose: no external nose abnormality Mouth: + dry oral mucous membranes Neck: no nuchal rigidity Respiratory: normal respiratory effort Auscultation: lungs clear to auscultation bilaterally and + diminished lung sounds Cardiovascular: Rate/Rhythm: + irregularly irregular Extremities: + edema (2-3+ to hips less indurated) Gastrointestinal (Abdomen): Inspection/Auscultation: normal bowel sounds Percussion/Palpation: abdomen soft; abdomen nontender Musculoskeletal: Extremities: strength 5/5 throughout Skin: no rashes, warm and dry Psychiatric: Orientation: oriented x 3 Genitourinary: mahan w/ ample light urine Results & Data ([facility]) Vital Signs (Past 12 Hours) Vital Signs Temp Pulse Pulse Resp BP Pulse Ox Pulse Ox 05/25/22 08:34 102/67 05/25/22 07:59 36.6 C 74 16 93/55 L 99 05/25/22 02:58 36.5 C 79 20 99/63 L 96 05/25/22 01:00 96 05/25/22 00:55 83 05/24/22 22:59 05/24/22 22:52 36.7 C 70 20 110/78 96 O2 Del Method O2 Del Method 05/25/22 08:34 05/25/22 07:59 Room Air 05/25/22 02:58 Room Air 05/25/22 01:00 Room Air 05/25/22 00:55 05/24/22 22:59 Room Air 05/24/22 22:52 Room Air Laboratory Results 05/24/22 05:55 05/25/22 05:34
[2022-05-25] MEDS: FERROUS SULFATE 325 MG TAB PO SCH (11:44)
--- NOTE | 2022-05-25 12:38 | Hospitalist Progress Note ---
Date of Service May 25, 2022 Assessment & Plan (1) Acute heart failure with reduced ejection fraction and diastolic d ysfunction: Plan: EF 45%, grade 2 diastolic dysfunction, mild aortic regurgitation, moderate tricuspid regurgitation, severe pulmonary hypertension On IV furosemide 40 mg IV q6h, spironolactone 12.5 mg daily Chun placed for strict I's and O's, low Na+ diet, 1.2L FR. Unable to do standing weights due to issues with left hip. Nephrology ([facility]) and cardiology ([facility]) following (2) Anasarca: Plan: Patient has had longstanding edema that has been refractory to outpatient diuretic therapy. (3) Diarrhea: Plan: Patient reports an episode of diarrhea this morning that she states is not terribly uncommon for her to have from time to time r/o C. Diff (4) Bilateral lower leg cellulitis: Plan: May be secondary cellulitis secondary to chronic swelling over the last several months On a short course of doxycycline (day 3) (5) Post-operative state: Plan: S/P IM nailing of left hip 2/2 fracture with subsequent failed intramedullary nail fixation of the left hip with complete collapse and protrusion of the implant into the acetabulum. Patient evaluated by Dr. Loyola in March and was referred to [facility] for further management and revision. Unfortunately in the interim patient was found to have a large adnexal mass that required surgery (April 20, 2022 the patient underwent exploratory laparotomy with left salpingo-oophorectomy, omentectomy and appendectomy. Final pathology was benign.) She also continued to struggle with profound lower extremity edema and anasarca prompting current admission. Consult Dr. Loyola for re-eval and weightbearing status recs. Noted patient is [place] [facility] (6) Atrial fibrillation, persistent: Plan: Rate controlled on metoprolol On Coumadin, INR 2.2 (7) AAA (abdominal aortic aneurysm): Plan: Most recent CT abdomen in March 2022 reveals an aortobiiliac stent graft is in place and widely patent with residual aneurysm sac measuring 4.2 x 5.1 cm and w ith evidence of endoleak. (8) CAD (coronary artery disease): Plan: Anterolateral ST-elevation ID in May 2009, culprit lesion was a 99% small D1 not amenable to intervention Continue statin and beta-carlos (9) Arteriosclerosis of carotid artery: Plan: Carotid artery disease status post endarterectomy in September 2015; post EVAR followed by vascular surgery at [facility]. Continue statin (10) DVT prophylaxis: Plan: On Coumadin, INR therapeutic Admission and Anticipated Discharge Date Admission Date: May 22, 2022 Supervising Physician Co-Signing Physician Notes Patient is seen and examined at bedside as a follow-up of acute heart failure with reduced ejection fraction and diastolic dysfunction, anasarca and diarrhea that onset today and bilateral lower leg cellulitis. For volume overload, nephrology and cardiology managing the patient. For intramedullary nailing of left hip secondary to fracture with subsequent failed IM nail fixation of the left hip with complete collapse and protrusion of the implant into the acetabulum, orthopedic has been consulted, awaiting recommendation. Patient's blood pressure on soft side, nephrology aware. Continue with doxycycline for lower extremity cellulitis. On exam, patient was sitting up in chair, 2+ BLE edema, on room air, irregularly irregular heart rate, lungs and abdomen examination fairly WNL. Rest of the examination as above. I have seen and examined the patient and have discussed the case with the provider above. I agree with the assessment and plan as stated. Subjective Follow up for anasarca, acute on chronic systolic/diastolic heart failure. Patient seen and examined. Sitting up in the chair. Reports lower extremity edema continues to improve. Had an episode of diarrhea this morning - which she reports is not terribly uncommon for her to have from time to time. No abdominal pain or nausea. Denies chest pain and shortness of breath. No lightheadedness or dizziness. Review of Systems Review of Systems: ROS per HPI, all other systems reviewed and negative Physical Exam Constitutional: WD/WN, vitals as above no acute distress sitting up in the chair Respiratory: normal respiratory effort, lungs clear to auscultation Cardiovascular: Rate/Rhythm: regular rate and + irregularly irregular Ves sels: normal peripheral pulses Extremities: + edema (+2-3 pitting edema BLE) Gastrointestinal (Abdomen): Percussion/Palpation: abdomen soft; abdomen nontender Skin: no rashes, warm and dry Neurologic: no focal motor deficits Psychiatric: A+Ox3, euthymic affect Results & Data Results & Data ([facility]) Vital Signs (Past 12 Hours) Vital Signs Temp Pulse Pulse Resp BP Pulse Ox Pulse Ox 05/25/22 07:00 75 05/25/22 08:00 05/25/22 08:34 102/67 05/25/22 07:59 36.6 C 74 16 93/55 L 99 05/25/22 02:58 36.5 C 79 20 99/63 L 96 05/25/22 01:00 96 05/25/22 00:55 83 O2 Del Method O2 Del Method 05/25/22 07:00 05/25/22 08:00 Room Air 05/25/22 08:34 05/25/22 07:59 Room Air 05/25/22 02:58 Room Air 05/25/22 01:00 Room Air 05/25/22 00:55 Laboratory Results BMP 05/25/22 05:34 Sodium 136 Potassium 3.8 Chloride 94 L Carbon Dioxide 35 H BUN 25 H Creatinine 0.95 Glucose 91 Calcium 9.0
--- NOTE | 2022-05-25 13:45 | Cardiology Progress Note ---
Date of Service May 25, 2022 Assessment & Plan (1) Acute heart failure with reduced ejection fraction and diastolic d ysfunction: Plan: Mildly reduced LVEF 45%, apical wall motion abnormality Dilated RV with dysfunction 2. CAD/ICM post anterolateral STEMI 2008 3. Pulmonary hypertension 4. Persistent atrial fibrillation--on anticoagulation 5. Peripheral artery disease including carotid artery disease status post endarterectomy September 2015; post EVAR 6. Failed hip fracture repair 7. Left ovarian cystadenoma 8. Anemia Patient diuresing very well on current IV diuretics Renal function stable Continue current 4 times daily Lasix 40 mg Continue current spironolactone Continue current Toprol-XL, anticoagulation Suspect pulmonary hypertension likely secondary lung disease/left heart dysfunction. Agree with outpatient sleep eval. Will follow Admission and Anticipated Discharge Date Admission Date: May 22, 2022 Subjective Feeling well today. Breathing improved from admission. Lower extremity swelling much improved. Denies any chest pain. Negative almost 4 L yesterday. Negative more than 8 L total since admission. Weight down more than 15 pounds Review of Systems Review of Systems: All systems reviewed & are unremarkable except as noted in HPI & below Physical Exam Physical Exam: General: Comfortable HEENT: Sclerae anicteric Lungs: Clear to auscultation bilaterally Cardiac: Irregularly irregular, pronounced P2 Vascular: 2+ radial Abdomen: Soft, nontender Extremities: Well perfused, 1-2+ lower extremity edema to mid shins, stockings in place Neuro: Nonfocal Psych: Alert orient x3, normal affect and mood Results & Data ([facility]) Vital Signs (Past 12 Hours) Vital Signs Temp Pulse Pulse Resp BP Pulse Ox O2 Del Method 05/25/22 12:35 98.1 F 77 18 110/71 98 Room Air 05/25/22 07:00 75 05/25/22 08:00 Room Air 05/25/22 08:34 102/67 05/25/22 07:59 97.9 F 74 16 93/55 L 99 Room Air 05/25/22 02:58 97.7 F 79 20 99/63 L 96 Room Air PG Care Time/CCT Total # of Minutes Spent Total Time Spent with Patient: Total time spent is greater than 50% in coordination of care (as documented) at patient's floor/unit and/or counseling patient: Coding Level of Care Code 90359 Subseq Hosp Care Lvl 3 Diagnoses Acute heart failure with reduced ejection fraction and diastolic dysfunction I50.41
[2022-05-25] MEDS: LOPERAMIDE HCL 2 MG CAP PO PRN (16:29)
[2022-05-25] MEDS: WARFARIN SOD 1 MG TAB PO SCH (16:30)
--- NOTE | 2022-05-25 18:21 | Orthopedic Consultation ---
Date of Service May 25, 2022 Assessment & Plan (1) Painful orthopaedic hardware: Fortunately the fluid is going down in her left leg. She is scheduled to meet with a hip revision specialist at [facility] on June 08. Until then, she can be touch toe weightbearing as pain allows. If you have any further questions please feel free to contact me anytime. History of Present Illness Reason for Consultation: Weightbearing status left leg. Requesting Physician: . Attending Physician: Fariha Abraham MD Bria Deras is a pleasant 86-year-old female who underwent intramedullary nail fixation of her left hip for a hip fracture on October 15. Unfortunately she did not do well postoperatively. She developed a large area of ascites in her abdomen. She had a lot of swelling of her left leg and she had complete collapse of her femoral head with protrusion of the implant into the acetabulum. I saw her in the office and sent her to [facility] for further management and revision. On April 20, 2022 the she underwent exploratory laparotomy with left salpingo-oophorectomy, omentectomy and appendectomy. Final pathology was benign. Unfortunately it did not take care of the swelling she has in her left leg. She has been admitted to [facility] and has been receiving Lasix every 6 hours to help with the swelling and her fluid overload. The swelling in her left leg has gone down considerably since her admission. She continues to struggle with her left hip. She is scheduled to meet with the hip revision specialist at [facility] on June 08. She feels comfortable ambulating with touch toe weightbearing. Orthopedics was consulted for weightbearing status on the left hip. Allergies Allergy/AdvReac Type Severity Reaction Status Date / Time cefuroxime Allergy Intermediate HIVES Verified 03/19/22 12:24 cefdinir Allergy Unknown Unverified 03/19/22 12:24 Home Medications Medication Instructions Recorded Confirmed Type atorvastatin 40 mg tablet 40 mg PO QPM #30 tabs 06/30/19 05/22/22 History multivitamin (Daily Multi-Vitamin 1 tab PO QAM 06/30/19 05/22/22 History tablet) nitroglycerin 0.4 mg sublingual 0.4 mg sublingual Q5M PRN chest 06/30/19 05/22/22 History tablet pain warfarin 1 mg tablet 1 mg PO .COMPLEX #180 tabs 01/12/22 05/22/22 Rx allopurinol 100 mg tablet 100 mg PO QAM 01/30/22 05/22/22 History diphenoxylate-atropine 2.5 1 tab PO Q6 PRN Diarrhea 01/30/22 05/22/22 History mg-0.025 mg tablet (Lomotil) ferrous sulfate 325 mg (65 mg 325 mg PO DAILY 01/30/22 05/22/22 History iron) tablet cholecalciferol (vitamin D3) 25 50 mcg PO DAILY #0 tabs 02/06/22 05/22/22 Rx mcg (1,000 unit) tablet (Vitamin D3) metoprolol succinate 25 mg 50 mg PO DAILY 03/19/22 05/22/22 History tablet,extended release 24 hr valsartan 80 mg tablet 80 mg PO DAILY #90 tabs 03/25/22 05/22/22 Rx furosemide 40 mg tablet 40 mg PO DAILY PRN weight gain #90 05/20/22 05/22/22 Rx tabs oxycodone 5 mg tablet 5 mg PO Q6 PRN Pain 05/22/22 05/22/22 History sennosides 8.6 mg tablet (senna) 8.6 mg PO QAM 05/22/22 05/22/22 History simethicone 80 mg chewable tablet 80 mg PO Q8 PRN .gas 05/22/22 05/22/22 History torsemide 10 mg tablet 10 mg PO QAM 05/22/22 05/22/22 History Past Med/Surg History Medical History AAA (abdominal aortic aneurysm) Aneurysm of abdominal aorta Anticoagulant long-term use Arteriosclerosis of carotid artery Atrial fibrillation, persistent Basal cell cancer CAD (coronary artery disease) Chronic renal insufficiency Deep vein thrombosis of lower extremity Hip fracture, left closed; January 2022; s/p intermedullary nail Ovarian mass, left s/p April 2022 excision; 26 cm serous cystadenoma (benign) Peripheral arterial disease Sick sinus syndrome Vertigo Surgical History H/O oophorectomy 26 x 22 x 16.5 cm large solid and cystic lesion filling the pelvis Ca 125: 74 CEA: 3.9 Ca 19-9: 7.9 History of prior hysterectomy and right salpingo-oophorectomy 04/20/2022: Exploratory laparotomy, left salpingo-oophorectomy, omentectomy and appendectomy. BENIGN pathology. H/O: hysterectomy S/P AAA repair Social History Smoking Status: Former smoker Tobacco Type: Cigarettes packs per day: 1; Years Smoked: 50; Smoking End Date: 2008; Hx Alcohol Use: No Hx Substance Use: No Preferred Language: Bulgarian Communication Ability: Effective Radius Grinder Required: No Beliefs That Will Affect Care: None marital status: / Current Living Situation: Other Current Living Situation Comment: has been living with her daughter [place] since February current occupational status: retired Feels Safe at Home: Yes Safety Concerns: Feels Safe At This Time Assistive Devices: Walker and Wheelchair Review of Systems All systems reviewed & are unremarkable except as noted in HPI & below. Physical Exam On physical examination of her left leg, the left leg is shorter. She does have some pain with logroll of the left hip. She has some swelling and fluid within her left leg but it is down from when I last saw her in the office.. Constitutional WD/WN, vitals as above Eyes PERRL, conjunctivae normal, anicteric sclerae ENMT external ear and nose normal, oropharynx normal Neck trachea midline, no thyromegaly Respiratory normal respiratory effort, lungs clear to auscultation Cardiovascular RRR, no murmur, no edema Gastrointestinal (Abdomen) normal bowel sounds, soft, nontender, no hepatosplenomegaly Skin no rashes, warm and dry Psychiatric A+Ox3, euthymic affect Results & Data Results & Data Laboratory Results . Diagnostic Findings . PG Care Time/CCT Total # of Minutes Spent Total Time Spent with Patient: Total time spent is greater than 50% in coordination of care (as documented) at patient's floor/unit and/or counseling patient: Coding Level of Care Code 19435 Inpt Consult Level 4 Diagnoses Painful orthopaedic hardware T84.84XA
[2022-05-25] MEDS: ATORVASTATIN 40 MG TAB PO SCH (20:10)
[2022-05-26] MEDS: FUROSEMIDE 40 MG/4 ML VIAL IV SCH ×4 (01:28→16:42)
[2022-05-26 06:17] LABS: INR 2.4 (0.9-1.1)
[2022-05-26 06:40] LABS: BUN Creatinine Ratio 23.3 (10-20); Calcium 8.9 mg/dl (8.5-10.1); Creatinine Clr Calc Pharmacy 36.7 ml/min; Est GFR (African American) 49.4 ml/min; Est GFR (Non-African American) 42.6 ml/min
[2022-05-26] MEDS: DOXYCYCLINE HYCLATE 100 MG CAP PO SCH ×2 (08:34→21:01)
[2022-05-26] MEDS: allopurinoL 100 MG TAB PO SCH (08:34)
[2022-05-26] MEDS: POTASSIUM CHLORIDE 10 MEQ TABCR PO SCH ×2 (08:34→21:02)
[2022-05-26] MEDS: METOPROLOL SUCC 50MG EXT REL TAB PO SCH (08:35)
[2022-05-26] MEDS: SENNA 8.6 MG TAB PO SCH (08:35)
[2022-05-26] MEDS: MULTIVITAMIN TAB PO SCH (08:35)
[2022-05-26] MEDS: LOPERAMIDE HCL 2 MG CAP PO PRN (08:48)
--- NOTE | 2022-05-26 11:15 | Nephrology Progress Note ---
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 her renal function remains actually better than baseline though suspect creatinine like sodium (and possibly her CBC lines) look artificially good d/t dilution w/ excess fluid. tolerating diuresis well. doubt this is nephrotic syndrome given spot prot/creat ratio and albumin but will continue to monitor. as of 05/26, 9.1 L negative on the admission (20 lb) -recommend daily standing wts if that's still w/in ortho parameters below > did d/w hospitalist team -cont 05/25 PM lowered lasix 20 mg qid IV and hold for sbp <100 -aldactone now on hold; would not lower BB at this time -halved K supplement to 10 mEq bid -BMP daily -continue mahan -cont liberalized FR to 1.2L -ordered <2 gm daily Na -continue recs re dietary consult >> on high K/low Na food choices (2) CHF (congestive heart failure): Plan: diurese as above cardiology following >>>?sleep apnea eval given right HF? or/and CT chest given plm HTN/R HF/tobacco hx (3) Painful orthopaedic hardware: Plan: ortho reviewed > sees [facility] 06/08 for eval ortho/hip revision; toe touch WB as pain allows ok til then per ortho Admission and Anticipated Discharge Date Admission Date: May 22, 2022 Subjective lower lasix dose held yesterday 1700 and 0100 per low BP parameters; had dose this am; feels much better/ breathing improved; no sx w/ lower bp including no presyncopal sx; edema much better Physical Exam Constitutional: well developed and well nourished; no acute distress Eyes: EOM intact bilaterally ENMT: Ears: no external ear abnormality Nose: no external nose abnormality Mouth: + dry oral mucous membranes Neck: no nuchal rigidity Respiratory: normal respiratory effort Auscultation: lungs clear to auscultation bilaterally and + diminished lung sounds Cardiovascular: Rate/Rhythm: + irregularly irregular Extremities: + edema (2+ to hips less indurated) Gastrointestinal (Abdomen): Inspection/Auscultation: normal bowel sounds Percussion/Palpation: abdomen soft; abdomen nontender Musculoskeletal: Extremities: strength 5/5 throughout Skin: no rashes, warm and dry Neurologic: funez, fluent speech, no tremor Psychiatric: Orientation: oriented x 3 Results & Data ([facility]) Vital Signs (Past 12 Hours) Vital Signs Temp Pulse Pulse Resp BP Pulse Ox Pulse Ox 05/26/22 07:00 78 05/26/22 09:17 05/26/22 07:45 36.7 C 76 18 100/63 92 05/26/22 03:45 36.7 C 85 18 106/68 96 05/26/22 01:00 95 05/26/22 00:17 78 05/25/22 23:11 36.5 C 73 18 100/67 95 O2 Del Method O2 Del Method 05/26/22 07:00 05/26/22 09:17 Room Air 05/26/22 07:45 Room Air 05/26/22 03:45 Room Air 05/26/22 01:00 Room Air 05/26/22 00:17 05/25/22 23:11 Room Air Laboratory Results 05/24/22 05:55 05/26/22 05:36
[2022-05-26] MEDS: FERROUS SULFATE 325 MG TAB PO SCH (11:45)
--- NOTE | 2022-05-26 13:49 | Hospitalist Progress Note ---
Date of Service May 26, 2022 Assessment & Plan (1) Acute heart failure with reduced ejection fraction and diastolic d ysfunction: Plan: Acute on chronic HF w/ reduced ejection fraction and diastolic dysfunction: EF 45%, grade 2 diastolic dysfunction, mild aortic regurgitation, moderate tricuspid regurgitation, severe pulmonary hypertension Previously on on IV furosemide 40 mg IV q6h, spironolactone 12.5 mg daily --> 05/25 - due to borderline low BPs, furosemide reduced to 20 mg IV every 6 hours, hold for SBP <100 and spironolactone on hold Patient currently -9L since admission and down about 12kg Chun placed for strict I's and O's, low Na+ diet, 1.2L FR. Received toe-touch weightbearing status from Ortho, start daily standing weights Nephrology (Chace) and cardiology (BETO) following (2) Anasarca: Plan: Patient has had longstanding edema that has been refractory to outpatient diuretic therapy. (3) Bilateral lower leg cellulitis: Plan: May be secondary cellulitis secondary to chronic swelling over the last several months On a short course of doxycycline (day 4) Minimal redness noted to left anterior biggs, likely can complete short 5-day Doxy course tomorrow (4) Post-operative state: Plan: S/P IM nailing of left hip 2/2 fracture with subsequent failed intramedullary nail fixation of the left hip with complete collapse and protrusion of the implant into the acetabulum. Patient evaluated by Dr. Loyola in March and was referred to [facility] for further management and revision. Unfortunately in the interim patient was found to have a large adnexal mass that required surgery (April 20, 2022 the patient underwent exploratory laparotomy with left salpingo-oophorectomy, omentectomy and appendectomy. Final pathology was benign.) She also continued to struggle with profound lower extremity edema and anasarca prompting current admission. Consult Dr. Loyola for re-eval and weightbearing status recs (patient is able to toe touch weight bear as pain allows) Noted patient is scheduled to see ortho at [facility] on 06/08. (5) Diarrhea: Plan: Resolved C. difficile negative Patient reported an episode of diarrhea on 05/25 that she states is not terribly uncommon for her to have from time to time (6) Atrial fibrillation, persistent: Plan: Rate controlled on metoprolol On Coumadin, INR 2.4 (7) AAA (abdominal aortic aneurysm): Plan: Most recent CT abdomen in March 2022 reveals an aortobiiliac stent graft is in place and widely patent with residual aneurysm sac measuring 4.2 x 5.1 cm and with evidence of endoleak. (8) CAD (coronary artery disease): Plan: Anterolateral ST-elevation [place] in May 2009, culprit lesion was a 99% small D1 not amenable to intervention Continue statin and beta-carlos (9) Arteriosclerosis of carotid artery: Plan: Carotid artery disease status post endarterectomy in September 2015; post EVAR followed by vascular surgery at [facility]. Continue statin (10) DVT prophylaxis: Plan: On Coumadin, INR therapeutic Dispo - Expect DC home with daughter and likely home health in a couple of days or so. Admission and Anticipated Discharge Date Admission Date: May 22, 2022 Supervising Physician Co-Signing Physician Notes Patient is seen and examined at bedside as a follow-up of acute on chronic heart failure with reduced ejection fraction and diastolic dysfunction, anasarca and and bilateral lower leg cellulitis. For volume overload, nephrology and cardiology managing the patient. For intramedullary nailing of left hip secondary to fracture with subsequent failed IM nail fixation of the left hip with complete collapse and protrusion of the implant into the acetabulum, orthopedic evaled, appreciate recommendation. Due to patient's blood pressure being on soft side, lasix dose decreased and spironolcatone held. Continue with doxycycline for lower extremity cellulitis. On exam, patient was sitting up in chair, 2+ BLE edema, on room air, irregularly irregular heart rate, lungs and abdomen examination fairly WNL. Rest of the examination as above. I have seen and examined the patient and have discussed the case with the provider above. I agree with the assessment and plan as stated. Subjective Follow-up for anasarca, acute on chronic systolic/diastolic CHF. Patient seen and examined. Sitting up in the chair. Patient reports she notices a significant difference in lower extremity edema today. Denies chest pain and shortness of breath. No lightheadedness or dizziness. No further episodes of diarrhea. Denies abdominal pain or nausea. Review of Systems Review of Systems: ROS per HPI, all other systems reviewed and negative Physical Exam Constitutional: WD/WN, vitals as above no acute distress Sitting up in the chair Respiratory: normal respiratory effort, lungs clear to auscultation Cardiovascular: Rate/Rhythm: regular rate and + irregularly irregular Vessels: normal peripheral pulses Extremities: + edema (+2 pitting edema BLE) Gastrointestinal (Abdomen): Percussion/Palpation: abdomen soft; abdomen nontender Skin: no rashes, warm and dry Mild pinkness noted left anterior biggs Neurologic: no focal motor deficits Psychiatric: A+Ox3, euthymic affect Genitourinary: Chun in place draining clear yellow urine Results & Data Results & Data ([facility]) Vital Signs (Past 12 Hours) Vital Signs Temp Pulse Pulse Resp BP Pulse Ox O2 Del Method 05/26/22 11:28 36.6 C 69 18 100/66 97 Room Air 05/26/22 07:00 78 05/26/22 09:17 Room Air 05/26/22 07:45 36.7 C 76 18 100/63 92 Room Air 05/26/22 03:45 36.7 C 85 18 106/68 96 Room Air Laboratory Results [facility] 05/26/22 05:36 Sodium 134 L Potassium 4.0 Chloride 94 L Carbon Dioxide 35 H BUN 27 H Creatinine 1.16 Glucose 90 Calcium 8.9
[2022-05-26] MEDS: WARFARIN SOD 2 MG TAB PO SCH (16:41)
[2022-05-26] MEDS: ATORVASTATIN 40 MG TAB PO SCH (21:01)
[2022-05-27] MEDS: FUROSEMIDE 40 MG/4 ML VIAL IV SCH ×5 (01:22→23:03)
[2022-05-27 07:54] LABS: INR 2.5 (0.9-1.1); Prothrombin Time 25.2 Seconds (9.0-12.0)
[2022-05-27 08:06] LABS: BUN Creatinine Ratio 26.5 (10-20); Creatinine Clr Calc Pharmacy 40.9 ml/min; Est GFR (African American) 57.7 ml/min; Est GFR (Non-African American) 49.8 ml/min
[2022-05-27] MEDS: allopurinoL 100 MG TAB PO SCH (08:17)
[2022-05-27] MEDS: MULTIVITAMIN TAB PO SCH (08:17)
[2022-05-27] MEDS: METOPROLOL SUCC 50MG EXT REL TAB PO SCH (08:17)
[2022-05-27] MEDS: DOXYCYCLINE HYCLATE 100 MG CAP PO SCH ×2 (08:18→19:49)
[2022-05-27] MEDS: POTASSIUM CHLORIDE 10 MEQ TABCR PO SCH ×2 (08:18→19:50)
[2022-05-27] MEDS: SENNA 8.6 MG TAB PO SCH (08:19)
--- NOTE | 2022-05-27 09:50 | Nephrology Progress Note ---
Date of Service May 27, 2022 Assessment & Plan (1) Anasarca: Plan: from multifactorial HF > underlying ischemic [employer] plus diastolic and R HF. her renal function remains actually better than baseline though suspect creatinine like sodium (and possibly her CBC lines) look artificially good d/t dilution w/ excess fluid. tolerating diuresis well. doubt this is nephrotic syndrome given spot prot/creat ratio and albumin but will continue to monitor. as of 05/26, 9.1 L negative on the admission (20 lb) -recommend daily standing wts i> 1st one 05/27 74.8 kg -cont 05/25 PM lowered lasix 20 mg qid IV and hold for sbp <100 > no missed doses past 24 hrs and total 1.2 L negative past 24-36 hrs -aldactone now on hold; would not lower BB at this time -cont K supplement to 10 mEq bid -BMP daily -continue mahan -cont liberalized FR to 1.2L -cont <2 gm daily Na -continue recs re dietary consult >> on high K/low Na food choices >>[place]ORIZ[place]>> plan another 24-72 hrs of IV diuresis depending on clinic status; ? d/c on weekend or early next week from fluid balance standpoint (2) CHF (congestive heart failure): Plan: diurese as above cardiology following >>>?sleep apnea eval given right HF? or/and CT chest given plm HTN/R HF/tobacco hx (3) Painful orthopaedic hardware: Plan: ortho reviewed > sees [facility] 06/08 for eval ortho/hip revision; toe touch WB as pain allows ok til then per ortho Admission and Anticipated Discharge Date Admission Date: May 22, 2022 Subjective seen on rounds this am about 1010; no sob; edema further improving; no presyncopal sx or malaise/n-v/confusion Review of Systems Review of Systems: All systems reviewed & are unremarkable except as noted in Subjective Physical Exam Constitutional: well developed (up in chair on RA) and well nourished; no acute distress Eyes: EOM intact bilaterally ENMT: Ears: no external ear abnormality Nose: no external nose abnormality Mouth: + dry oral mucous membranes Neck: no nuchal rigidity Respiratory: normal respiratory effort Auscultation: lungs clear to auscultation bilaterally and + diminished lung sounds Cardiovascular: Rate/Rhythm: + irregularly irregular Extremities: + edema (trace -1+ to hips less indurated) Gastrointestinal (Abdomen): Inspection/Auscultation: normal bowel sounds Percussion/Palpation: abdomen soft; abdomen nontender Musculoskeletal: Extremities: strength 5/5 throughout Skin: no rashes, warm and dry Neurologic: fnuez, fluent speech, no tremor Psychiatric: Orientation: oriented x 3 Results & Data ([facility]) Vital Signs (Past 12 Hours) Vital Signs Temp Pulse Pulse Resp BP Pulse Ox Pulse Ox 05/27/22 07:30 36.6 C 68 18 99/64 L 91 05/27/22 06:10 100/61 05/27/22 04:00 36.7 C 62 20 96/59 L 93 05/27/22 01:49 73 05/27/22 01:00 92 05/27/22 01:21 101/65 05/26/22 23:29 36.4 C L 78 20 100/68 91 O2 Del Method O2 Del Method 05/27/22 07:30 Room Air 05/27/22 06:10 05/27/22 04:00 Room Air 05/27/22 01:49 05/27/22 01:00 Room Air 05/27/22 01:21 05/26/22 23:29 Room Air Laboratory Results 05/24/22 05:55 05/27/22 07:10
[2022-05-27] MEDS: FERROUS SULFATE 325 MG TAB PO SCH (11:26)
--- NOTE | 2022-05-27 16:02 | Hospitalist Progress Note ---
Date of Service May 27, 2022 Assessment & Plan (1) Acute heart failure with reduced ejection fraction and diastolic d ysfunction: Plan: Acute on chronic HF w/ reduced ejection fraction and diastolic dysfunction: EF 45%, grade 2 diastolic dysfunction, mild aortic regurgitation, moderate tricuspid regurgitation, severe pulmonary hypertension Previously on on IV furosemide 40 mg IV q6h, spironolactone 12.5 mg daily --> 05/25 - due to borderline low BPs, furosemide reduced to 20 mg IV every 6 hours, hold for SBP <100, and spironolactone on hold Patient currently -10L since admission and down about 14kg Chun placed for strict I's and O's, low Na+ diet, 1.2L FR. Received toe-touch weightbearing status from Ortho --> ok for daily standing weights Nephrology (Chace) and cardiology (BETO) following (2) Anasarca: Plan: Patient has had longstanding edema that has been refractory to outpatient diuretic therapy. (3) Bilateral lower leg cellulitis: Plan: May be secondary cellulitis secondary to chronic swelling over the last several months Complete short 5-day course of doxycycline today. (4) Post-operative state: Plan: S/P IM nailing of left hip 2/2 fracture with subsequent failed intramedullary nail fixation of the left hip with complete collapse and protrusion of the implant into the acetabulum. Patient evaluated by Dr. Loyola in March and was referred to [facility] for further management and revision. Unfortunately in the interim patient was found to have a large adnexal mass that required surgery (April 20, 2022 the patient underwent exploratory laparotomy with left salpingo-oophorectomy, omentectomy and appendectomy. Final pathology was benign.) She also continued to struggle with profound lower extremity edema and anasarca prompting current admission. Consult Dr. Loyola for re-eval and weightbearing status recs (patient is able to toe touch weight bear as pain allows) Noted patient is scheduled to see ortho at [facility] on 06/08. (5) Diarrhea: Plan: Resolved C. difficile negative Patient reported an episode of diarrhea on 05/25 that she states is not terribly uncommon for her to have from time to time (6) Atrial fibrillation, persistent: Plan: Rate controlled on metoprolol On Coumadin, INR 2.5 (7) AAA (abdominal aortic aneurysm): Plan: Most recent CT abdomen in March 2022 reveals an aortobiiliac stent graft is in place and widely patent with residual aneurysm sac measuring 4.2 x 5.1 cm and with evidence of endoleak. (8) CAD (coronary artery disease): Plan: Anterolateral ST-elevation [place] in May 2009, culprit lesion was a 99% small D1 not amenable to intervention Continue statin and beta-carlos (9) Arteriosclerosis of carotid artery: Plan: Carotid artery disease status post endarterectomy in September 2015; post EVAR followed by vascular surgery at [facility]. Continue statin (10) DVT prophylaxis: Plan: On Coumadin, INR therapeutic Dispo - Expect DC home with daughter and likely home health in a couple of days or so. Admission and Anticipated Discharge Date Admission Date: May 22, 2022 Supervising Physician Co-Signing Physician Notes Patient is seen and examined at bedside as a follow-up of acute on chronic heart failure with reduced ejection fraction and diastolic dysfunction, anasarca and and bilateral lower leg cellulitis. For volume overload, nephrology and cardiology managing the patient. For intramedullary nailing of left hip secondary to fracture with subsequent failed IM nail fixation of the left hip with complete collapse and protrusion of the implant into the acetabulum, orthopedic evaled, appreciate recommendation for toe tip weight bearing and to follow up with outside orthopedist 06/08/2022. Due to patient's blood pressure being on soft side, lasix dose decreased and spironolcatone held. Continue with doxycycline for lower extremity cellulitis, to complete today 05/27/2022. On exam, patient was sitting up in chair, trace BLE edema, on room air, irregularly irregular heart rate, lungs and abdomen examination WNL. Rest of the examination as above. I have seen and examined the patient and have discussed the case with the provider above. I agree with the assessment and plan as stated. Subjective Follow-up for anasarca, acute on chronic systolic/diastolic CHF. Patient seen and examined. Sitting up in the chair. Reports she continues to feel improved each day. Offers no complaints. Lower extremity edema improving. Denies chest pain or shortness of breath. No abdominal pain or nausea. No further episodes of diarrhea. Review of Systems Review of Systems: ROS per HPI, all other systems reviewed and negative Physical Exam Constitutional: WD/WN, vitals as above no acute distress Sitting up in the chair Respiratory: normal respiratory effort, lungs clear to auscultation Cardiovascular: Rate/Rhythm: regular rate and + irregularly irregular Vessels: normal peripheral pulses Extremities: + edema (+2 pitting edema BLE) Gastrointestinal (Abdomen): Percussion/Palpation: abdomen soft; abdomen nontender Skin: no rashes, warm and dry Neurologic: no focal motor deficits Psychiatric: A+Ox3, euthymic affect Results & Data Results & Data ([facility]) Vital Signs (Past 12 Hours) Vital Signs Temp Pulse Resp BP BP Pulse Ox O2 Del Method 05/27/22 15:17 36.6 C 59 L 18 102/64 99 Room Air 05/27/22 07:30 36.6 C 68 18 99/64 L 91 Room Air 05/27/22 06:10 100/61 05/27/22 04:00 36.7 C 62 20 96/59 L 93 Room Air Laboratory Results [facility] 05/27/22 07:10 Sodium 134 L Potassium 4.0 Chloride 95 L Carbon Dioxide 31 BUN 27 H Creatinine 1.02 Glucose 90 Calcium 9.0
[2022-05-27] MEDS: WARFARIN SOD 2 MG TAB PO SCH (17:58)
[2022-05-27] MEDS: ATORVASTATIN 40 MG TAB PO SCH (19:50)
[2022-05-28] MEDS: FUROSEMIDE 40 MG/4 ML VIAL IV SCH ×2 (05:10→12:30)
[2022-05-28 08:54] LABS: INR 2.8 (0.9-1.1); Prothrombin Time 28.4 Seconds (9.0-12.0)
[2022-05-28 09:02] LABS: Creatinine Clr Calc Pharmacy 41.7 ml/min; Est GFR (African American) 59.1 ml/min
[2022-05-28] MEDS: METOPROLOL SUCC 50MG EXT REL TAB PO SCH (09:24)
[2022-05-28] MEDS: SENNA 8.6 MG TAB PO SCH (09:24)
[2022-05-28] MEDS: POTASSIUM CHLORIDE 10 MEQ TABCR PO SCH ×2 (09:24→20:24)
[2022-05-28] MEDS: MULTIVITAMIN TAB PO SCH (09:24)
[2022-05-28] MEDS: allopurinoL 100 MG TAB PO SCH (09:25)
[2022-05-28] MEDS: FERROUS SULFATE 325 MG TAB PO SCH (12:37)
--- NOTE | 2022-05-28 14:13 | Nephrology Progress Note ---
Date of Service May 28, 2022 Assessment & Plan (1) Anasarca: Plan: from multifactorial HF > underlying ischemic [employer] plus diastolic and R HF. her renal function remains actually better than baseline though suspect creatinine like sodium (and possibly her CBC lines) look artificially good d/t dilution w/ excess fluid. tolerating diuresis well. doubt this is nephrotic syndrome given spot prot/creat ratio and albumin but will continue to monitor. as of 05/26, 9.1 L negative on the admission (20 lb) -recommend daily standing wts i> 1st one 05/27 74.8 kg > 74.5 kg today -cont 05/25 PM lowered lasix 20 mg qid IV and hold for sbp <100 > no missed doses past 24 hrs again -aldactone now on hold; would not lower BB at this time -cont K supplement to 10 mEq bid >>stopped lasix IV >start torsemide 5 mg daily tomorrow AM -BMP daily -OK to d/c mahan -cont liberalized FR to 1.2L -cont <2 gm daily Na -continue recs re dietary consult >> on high K/low Na food choices will sign off pls d/c on above meds, daily standing wt, sodium limit >d/c on 1.5L daily fluid limit neph RN to order BMP for weekly x 3 after hospital d/c needs HOSPITAL D/C appt w/ me in 2-4 wks after d/c Care coordinated w/ hospitalist team (2) CHF (congestive heart failure): Plan: diurese as above cardiology following >>>?sleep apnea eval given right HF? or/and CT chest given plm HTN/R HF/tobacco hx (3) Painful orthopaedic hardware: Plan: ortho reviewed > [place] [facility] [place] for eval ortho/hip revision; toe touch WB as pain allows ok til then per ortho Admission and Anticipated Discharge Date Admission Date: May 22, 2022 Subjective no acute interval events. no symptomatic hpyotension. edema continues to imrpove Review of Systems Review of Systems: All systems reviewed & are unremarkable except as noted in Subjective Physical Exam Constitutional: well developed (up in chair on RA) and well nourished; no acute distress Eyes: EOM intact bilaterally ENMT: Ears: no external ear abnormality Nose: no external nose abnormality Mouth: + dry oral mucous membranes Neck: no nuchal rigidity Respiratory: normal respiratory effort Auscultation: lungs clear to auscultation bilaterally and + diminished lung sounds Cardiovascular: Rate/Rhythm: + irregularly irregular Extremities: + edema (trace to hips less indurated) Gastrointestinal (Abdomen): Inspection/Auscultation: normal bowel sounds Percussion/Palpation: abdomen soft; abdomen nontender Musculoskeletal: Extremities: strength 5/5 throughout Skin: no rashes, warm and dry Psychiatric: Orientation: oriented x 3 Results & Data ([facility]) Vital Signs (Past 12 Hours) Vital Signs Temp Pulse Pulse Resp BP BP Pulse Ox 05/28/22 08:00 72 05/28/22 11:14 36.6 C 75 18 92/59 L 95 05/28/22 07:14 36.4 C L 95 H 18 93/58 L 98 05/28/22 05:00 100/55 L 05/28/22 02:51 36.7 C 68 18 97/58 L 93 O2 Del Method 05/28/22 08:00 05/28/22 11:14 Room Air 05/28/22 07:14 Room Air 05/28/22 05:00 05/28/22 02:51 Room Air Laboratory Results 05/24/22 05:55 05/28/22 08:16
--- NOTE | 2022-05-28 15:07 | Hospitalist Progress Note ---
Date of Service May 28, 2022 Assessment & Plan (1) Acute heart failure with reduced ejection fraction and diastolic d ysfunction: Plan: Acute on chronic HF w/ reduced ejection fraction and diastolic dysfunction: EF 45%, grade 2 diastolic dysfunction, mild aortic regurgitation, moderate tricuspid regurgitation, severe pulmonary hypertension Previously on on IV furosemide 40 mg IV q6h, spironolactone 12.5 mg daily --> 05/25 - due to borderline low BPs, furosemide reduced to 20 mg IV every 6 hours, hold for SBP <100, and spironolactone on hold - no IV lasix stopped per renal Chun placed for strict I's and O's, low Na+ diet, 1.2L FR. Received toe-touch weightbearing status from Ortho --> ok for daily standing weights Nephrology (Chace) and cardiology (BETO) following - stopped IV lasix given improvement per renal - start torsemide 5mg daily 05/29/2022 -discharge with fluid restriction of 1.5L, low sodium diet - BMP weekly x3 weeks for monitoring - renal follow up 2-4 weeks after discharge (2) Anasarca: Plan: Patient has had longstanding edema that has been refractory to outpatient diuretic therapy. - improved - see above (3) Bilateral lower leg cellulitis: Plan: May be secondary cellulitis secondary to chronic swelling over the last several months Completed short 5-day course of doxycycline 05/27/2022. (4) Post-operative state: Plan: S/P IM nailing of left hip 2/2 fracture with subsequent failed intramedullary nail fixation of the left hip with complete collapse and protrusion of the implant into the acetabulum. Patient evaluated by Dr. Loyola in March and was referred to [facility] for further management and revision. Unfortunately in the interim patient was found to have a large adnexal mass that required surgery (April 20, 2022 the patient underwent exploratory laparotomy with left salpingo-oophorectomy, omentectomy and appendectomy. Final pathology was benign.) She also continued to struggle with profound lower extremity edema and anasarca prompting current admission. Consult Dr. Loyola for re-eval and weightbearing status recs (patient is able to toe touch weight bear as pain allows) Noted patient is scheduled to see ortho at [facility] on 06/08. (5) Atrial fibrillation, persistent: Plan: Rate controlled on metoprolol On Coumadin, INR goal 2-3 - daily INR inpatient (6) AAA (abdominal aortic aneurysm): Plan: Most recent CT abdomen in March 2022 reveals an aortobiiliac stent graft is in place and widely patent with residual aneurysm sac measuring 4.2 x 5.1 cm and with evidence of endoleak. (7) CAD (coronary artery disease): Plan: Anterolateral ST-elevation MD in May 2009, culprit lesion was a 99% small D1 not amenable to intervention Continue statin and beta-carlos (8) Arteriosclerosis of carotid artery: Plan: Carotid artery disease status post endarterectomy in September 2015; post EVAR followed by vascular surgery at [facility]. Continue statin (9) DVT prophylaxis: Plan: On Coumadin, INR therapeutic Dispo - telemetry - potential discharge tomorrow 05/29/2022 Admission and Anticipated Discharge Date Admission Date: May 22, 2022 Subjective Patient with HFrEF, CAD, PVD, afib on Coumadin, HTN, COPD, GERD, anemia with anasarca and acute on chronic HFrEF being managed by renal and cardiology with IV lasix. Improvement in anasarca and respiratory status with IV diuretics. Now being transitioned to po torsemide. The patient feels well today. Denies shortness of breath, chest pain, n/v/d, abdominal pain, dysuria. Review of Systems Review of Systems: All systems reviewed & are unremarkable except as noted in Subjective ROS per HPI, all other systems reviewed and negative Physical Exam Physical Exam: Constitutional:L WD/WN, vitals as a dianelys no acute dis tress Sitting up in the chair Respiratory: normal respiratory effort, lungs amadeo ar to auscultation Cardiovascular:L Rate/Rhythm: regul ar rate and + irre gularly irregular Vessels: normal p eripheral pulses Extremities: trace edema to posterio r lower calf area Gastrointestinal ( Abdomen): Percussion/Palpati on: abdomen soft; abdomen nontender Skin: no rashes, warm an d dry Neurologic: no focal motor def icits Psychiatric: A+Ox3, euthymic af fect Results & Data Results & Data ([facility]) Vital Signs (Past 12 Hours) Vital Signs Temp Pulse Pulse Resp BP BP Pulse Ox 05/28/22 08:00 72 05/28/22 11:14 36.6 C 75 18 92/59 L 95 05/28/22 07:14 36.4 C L 95 H 18 93/58 L 98 05/28/22 05:00 100/55 L O2 Del Method 05/28/22 08:00 05/28/22 11:14 Room Air 05/28/22 07:14 Room Air 05/28/22 05:00 Laboratory Results BMP 05/28/22 08:16 Sodium 134 L Potassium 4.0 Chloride 96 L Carbon Dioxide 32 BUN 29 H Creatinine 1.00 Glucose 88 Calcium 9.0 Diagnostic Findings reviewed Medications Administered Current Inpatient Medications Acetaminophen (Acetaminophen 325 Mg Tab) 650 mg PO Q4H PRN PRN Reason: Pain or Fever Stop: 06/22/22 01:11 Allopurinol (Allopurinol 100 Mg Tab) 100 mg PO QAM [facility] Stop: 06/22/22 08:59 Last Admin: 05/28/22 09:25 Dose: 100 mg Atorvastatin Calcium (Atorvastatin 40 Mg Tab) 40 mg PO QPM [facility] Stop: 06/22/22 20:59 Last Admin: 05/27/22 19:50 Dose: 40 mg Ferrous Sulfate (Ferrous Sulfate 325 Mg Tab) 325 mg PO DAILY@1130 RICK Stop: 06/22/22 11:29 Last Admin: 05/28/22 12:37 Dose: 325 mg Promethazine HCl 12.5 mg/ (Sodium Chloride) 50.5 mls @ 202 mls/hr IV Q6H PRN PRN Reason: Nausea And Vomiting Stop: 06/21/22 23:21 Loperamide HCl (Loperamide Hcl 2 Mg Cap) 2 mg PO DAILY PRN PRN Reason: diarrhea Stop: 06/24/22 15:32 Last Admin: 05/26/22 08:48 Dose: 2 mg Metoprolol Succinate (Metoprolol Succ 50mg Ext Rel Tab) 50 mg PO DAILY RICK Stop: 06/22/22 08:59 Last Admin: 05/28/22 09:24 Dose: 50 mg Multivitamins (Multivitamin Tab) 1 tab PO QAM [facility] Stop: 06/22/22 08:59 Last Admin: 05/28/22 09:24 Dose: 1 tab Nitroglycerin (Nitroglycerin Sl 0.4 Mg/Tab Tab) 0.4 mg SL Q5M PRN PRN Reason: chest pain Stop: 06/22/22 01:11 Oxycodone HCl (Oxycodone Hcl Ir 5 Mg Tab (Immediate Release)) 5 mg PO Q6 PRN PRN Reason: Pain Stop: 06/06/22 01:11 Potassium Chloride (Potassium Chloride 10 Meq Tabcr) 10 meq PO BID [facility] Stop: 06/25/22 08:59 Last Admin: 05/28/22 09:24 Dose: 10 meq Sennosides (Senna 8.6 Mg Tab) 8.6 mg PO QAM [facility] Stop: 06/22/22 08:59 Last Admin: 05/28/22 09:24 Dose: 8.6 mg Simethicone (Simethicone 80 Mg Chew) 80 mg PO Q8 PRN PRN Reason: .gas Stop: 06/22/22 01:11 Spironolactone (Spironolactone 12.5 Mg Tab) 12.5 mg PO DAILY [facility] Stop: 06/23/22 12:59 Last Admin: 05/25/22 08:41 Dose: 12.5 mg Torsemide (Torsemide 10 Mg Tab) 5 mg PO QAM [facility] Stop: 06/28/22 08:59 Tramadol HCl (Tramadol Hcl 50 Mg Tablet) 25 - 50 mg PO Q4H PRN PRN Reason: Pain Stop: 06/21/22 23:21 Warfarin Sodium (Warfarin Sod 2 Mg Tab) 2 mg PO SuTuWeThSa@1600 [facility] Stop: 06/25/22 15:59 Last Admin: 05/27/22 17:58 Dose: 2 mg Warfarin Sodium (Warfarin Sod 1 Mg Tab) 1 mg PO MoFr@1600 [facility] Stop: 06/24/22 15:59 Last Admin: 05/25/22 16:30 Dose: 1 mg
[2022-05-28] MEDS: WARFARIN SOD 2 MG TAB PO SCH (16:27)
[2022-05-28] MEDS: ATORVASTATIN 40 MG TAB PO SCH (20:24)
[2022-05-28] MEDS: LOPERAMIDE HCL 2 MG CAP PO PRN (20:26)
[2022-05-29] MEDS: POTASSIUM CHLORIDE 10 MEQ TABCR PO SCH (08:23)
[2022-05-29] MEDS: MULTIVITAMIN TAB PO SCH (08:23)
[2022-05-29] MEDS: SENNA 8.6 MG TAB PO SCH ×2 (08:24→10:13)
[2022-05-29] MEDS: allopurinoL 100 MG TAB PO SCH (08:25)
[2022-05-29] MEDS: METOPROLOL SUCC 50MG EXT REL TAB PO SCH (08:29)
[2022-05-29] MEDS: TORSEMIDE 10 MG TAB PO SCH ×2 (08:39→10:08)
[2022-05-29 10:41] LABS: Prothrombin Time 30.2 Seconds (9.0-12.0)
[2022-05-29] MEDS: FERROUS SULFATE 325 MG TAB PO SCH (10:53)
[2022-05-29 11:00] LABS: BUN Creatinine Ratio 27.2 (10-20); Calcium 9.2 mg/dl (8.5-10.1); Creatinine Clr Calc Pharmacy 40.4 ml/min; Est GFR (Non-African American) 49.2 ml/min; Magnesium 1.9 mg/dl (1.7-2.4); Phosphorus 3.2 mg/dl (2.5-4.9); Potassium 4.1 mmol/L (3.5-5.1)
--- NOTE | 2022-05-29 14:56 | Discharge Summary ---
Date of Service May 29, 2022 Admission HPI Per Admitting Provider History obtained from patient, family, and records. Medical history significant for chronic diastolic heart failure (EF 55%, TTE 2011), CAD, PVD status post surgery, A. fib on Coumadin, hypertension, COPD, GERD, chronic anemia (baseline hemoglobin 10-11) past tobacco abuse. Last [facility] confinement January 2022 for traumatic left hip fracture status post surgery. 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 Patient noted increased bilateral leg swelling more on the left since January 2022 for fracture surgery. Worsening edema despite higher dose of diuretics as per outpatient [facility] [place] from 2 months ago. Patient denies actual chest pain or unusual shortness of breath. Patient compliant with home medications. Denies dietary indiscretion. Sparse OTC NSAID intake. Patient tries to be compliant with 32 ounces daily fluid restriction Patient seen on outpatient [facility] Nephrology follow-up visit 2 days ago. Provider worried about lymphedema and possible Lasix tolerance. Concern for nephrotic syndrome given extent of edema as per provider note. Patient Lasix switched to Torsemide. Outpatient labs requested. Outpatient BNP noted to be elevated. Outpatient CXR result as follows Findings compatible with fluid overload with bilateral pleural effusions with subjacent consolidation most likely atelectasis and changes of pulmonary vascular congestion. Note that superimposed pneumonia specially in left lower lobe would be difficult to exclude and clinical correlation is therefore recommended. Autopsy Assistant recommended ER evaluation anytime patient symptoms worsened. Patient noted increased bilateral leg swelling along with redness the last 2 days despite compliance with new diuretic regimen. Increased shortness of breath especially on exertion. No chest pain, no unusual cough symptoms. No fever, no chills. Patient brought to the ER by daughter for evaluation. 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 Exam Per Admitting Provider GENERAL: Slightly uncomfortable, pleasant, looks younger for stated age, obese, dysphonic, no respiratory distress SKIN: Pallor , warm HEENT: Pale palpebral conjunctivae, no ptosis, dry buccal mucosa NECK : Supple, distended neck veins, no tenderness CHEST : Decreased breath sounds, bibasilar crackles, no tenderness HEART : Irregular, no obvious murmurs ABDOMEN: Marked distention, nontender EXTREMITIES : Bilateral LE swelling (L>R with minimal erythema) minimal LE tenderness NEUROLOGIC : Coherent, no facial asymmetry, gait and stance not assessed Principal Diagnosis CHF Discharge Exam Constitutional: WD/WN, vitals as above no acute distress Sitting up in the chair Respiratory: normal respiratory effort, lungs clear to auscultation Cardiovascular: Rate/Rhythm: regular rate and + irregularly irregular Vessels: normal peripheral pulses Extremities: no edema Gastrointestinal (Abdomen): Percussion/Palpation: abdomen soft; abdomen nontender Skin: no rashes, warm and dry Neurologic: no focal motor deficits Psychiatric: A+Ox3, euthymic affect Discharge Data Allergies Allergy/AdvReac Type Severity Reaction Status Date / Time cefuroxime Allergy Intermediate HIVES Verified 03/19/22 12:24 cefdinir Allergy Unknown Unverified 03/19/22 12:24 Consultations 05/22/22 22:30 ED Decision to Admit Stat 05/23/22 01:12 Consult Cardiology Routine 05/23/22 03:38 Consult Nephrology Routine 05/25/22 08:30 Consult Orthopedic Surgery Routine Hospital Course (1) Acute heart failure with reduced ejection fraction and diastolic dysfunction: Acute on chronic HF w/ reduced ejection fraction and diastolic dysfunction: EF 45%, grade 2 diastolic dysfunction, mild aortic regurgitation, moderate tricuspid regurgitation, severe pulmonary hypertension Previously on on IV furosemide 40 mg IV q6h, spironolactone 12.5 mg daily --> 05/25 - due to borderline low BPs, furosemide reduced to 20 mg IV every 6 hours, hold for SBP <100, and spironolactone on hold - no IV lasix stopped per renal Chun placed for strict I's and O's, low Na+ diet, 1.2L FR. Received toe-touch weightbearing status from Ortho --> ok for daily standing weights Nephrology (Chace) and cardiology (BETO) following - stopped IV lasix given improvement per renal - start torsemide 5mg daily 05/29/2022 -discharge with fluid restriction of 1.5L, low sodium diet - BMP weekly x3 weeks for monitoring - renal follow up 2-4 weeks after discharge - ok for discharge on meds and follow up above (2) Anasarca: Patient has had longstanding edema that has been refractory to outpatient diuretic therapy. - improved - see above (3) Bilateral lower leg cellulitis: May be secondary cellulitis secondary to chronic swelling over the last several months Completed short 5-day course of doxycycline 05/27/2022. (4) Post-operative state: S/P IM nailing of left hip 2/2 fracture with subsequent failed intramedullary nail fixation of the left hip with complete collapse and protrusion of the implant into the acetabulum. Patient evaluated by Dr. Loyola in March and was referred to [facility] for further management and revision. Unfortunately in the interim patient was found to have a large adnexal mass that required surgery (April 20, 2022 the patient underwent exploratory laparotomy with left salpingo-oophorectomy, omentectomy and appendectomy. Final pathology was benign.) She also continued to struggle with profound lower extremity edema and anasarca prompting current admission. Consult Dr. Loyola for re-eval and weightbearing status recs (patient is able to toe touch weight bear as pain allows) Noted patient is scheduled to see ortho at [facility] on 06/08. (5) Atrial fibrillation, persistent: Rate controlled on metoprolol On Coumadin, INR goal 2-3 - daily INR inpatient (6) AAA (abdominal aortic aneurysm): Most recent CT abdomen in March 2022 reveals an aortobiiliac stent graft is in place and widely patent with residual aneurysm sac measuring 4.2 x 5.1 cm and with evidence of endoleak. (7) CAD (coronary artery disease): Anterolateral ST-elevation AR in May 2009, culprit lesion was a 99% small D1 not amenable to intervention Continue statin and beta-carlos (8) Arteriosclerosis of carotid artery: Carotid artery disease status post endarterectomy in September 2015; post EVAR followed by vascular surgery at [facility]. Continue statin (9) DVT prophylaxis: On Coumadin, INR therapeutic Dispo - telemetry - potential discharge tomorrow 05/29/2022 Total Time Total Time Spent Total Time Spent (In Minutes): 27 Total Time Includes: Examination of the Patient, Discharge Planning, Medication Reconciliation and Communication With Other Providers Discharge Plan Discharge Items Patient Disposition: Home - Self-Care Reason For Visit: CHF Discharge Diagnosis: chf exacerbation Activity: Resume your previous activity Non-emergency contact: Primary Care Provider, Sorority Supervisor and Autopsy Assistant Call non-emergency contact if: you have any medication questions and your symptoms worsen Follow-up/Referrals: Gissel Boo MD, PhD [Physician] - (Date & Time 06/26/2022 9:00 AM Provider Gissel Boo MD Department Nephrology, [facility] ) Norma Pandey MD [Primary Care Provider] - (Date & Time 06/03/2022 11:20 AM Provider Enrico Hart MD Department Family Medicine [facility] ) Marquis Marshall Jr, MD [Outside Practitioners] - (Date & Time 06/08/2022 10:15 AM Provider [facility] Jr[facility] Diet: Heart Healthy Fluids: 1500ml (6 cups) Addtl Attending Provider Instructions: You were admitted with large fluid retention and CHF exacerbation. You worked with the oxide furnace tender Dr. Boo and Cardiology to remove the fluid. You improved greatly with IV lasix to remove the fluid and nephrology determined you no longer required IV medications and switched to torsemide 5mg dialy. You are to follow up with Dr. Boo in about 2 weeks as well as get blood work 1x per week for the next 3 weeks to monitor your kidney function. Pending Studies at Discharge: No Stand-Alone Forms: My [facility] psicofxp, Smoking Cessation Medications and DC Order Prescriptions: New torsemide 10 mg Tablet 5 mg PO QAM Qty: 30 0RF potassium chloride 10 mEq Tablet,Er Particles/Crystals 10 meq PO BID Qty: 60 0RF Continued warfarin 1 mg tablet 1 mg PO .COMPLEX Qty: 180 11RF Protocol: Dose Management Condition: Wednesday (Week One) Dose/Route: 2 mg Instruction: 2 x 1 mg tablets Condition: Wednesday Dose/Route: 1 mg Instruction: 1 x 1 mg tablet Condition: Wednesday Dose/Route: 2 mg Instruction: 2 x 1 mg tablets Condition: Wednesday Dose/Route: 2 mg Instruction: 2 x 1 mg tablets Condition: Dose/Route: 2 mg Instruction: 2 x 1 mg tablets Condition: Wednesday Dose/Route: 0 mg Instruction: 0 tablets Condition: Wednesday Dose/Route: 1 mg Instruction: 1 x 1 mg tablet Condition: Wednesday (Week Two) Dose/Route: 2 mg Instruction: 2 x 1 mg tablets Condition: Wednesday Dose/Route: 1 mg Instruction: 1 x 1 mg tablet Condition: Wednesday Dose/Route: 2 mg Instruction: 2 x 1 mg tablets Condition: Wednesday Dose/Route: 2 mg Instruction: 2 x 1 mg tablets Condition: Dose/Route: 2 mg Instruction: 2 x 1 mg tablets Condition: Wednesday Dose/Route: 1 mg Instruction: 1 x 1 mg tablet Condition: Wednesday Dose/Route: 2 mg Instruction: 2 x 1 mg tablets Protocol Text: Adjustment Start Date: 05/21/22 INR Value: 3.96 INR Date: 05/20/22 Rx Instructions: Take 1 tablet on Wednesday and Wednesday and 2 tablets on all other days. atorvastatin 40 mg tablet 40 mg PO QPM Qty: 30 multivitamin [Daily Multi-Vitamin] tablet 1 tab PO QAM nitroglycerin 0.4 mg tablet, sublingual 0.4 mg SL Q5M PRN (Reason: chest pain) diphenoxylate-atropine [Lomotil] 2.5-0.025 mg Tablet 1 tab PO Q6 PRN (Reason: Diarrhea) allopurinol 100 mg tablet 100 mg PO QAM ferrous sulfate 325 mg (65 mg iron) Tablet 325 mg PO DAILY cholecalciferol (vitamin D3) [Vitamin D3] 25 mcg (1,000 unit) Tablet 50 mcg PO DAILY Qty: 0 0RF metoprolol succinate 25 mg tablet extended release 24 hr 50 mg PO DAILY sennosides [senna] 8.6 mg tablet 8.6 mg PO QAM simethicone 80 mg tablet,chewable 80 mg PO Q8 PRN (Reason: .gas) oxycodone 5 mg tablet 5 mg PO Q6 PRN (Reason: Pain) Discontinued valsartan 80 mg tablet 80 mg PO DAILY Qty: 90 3RF furosemide 40 mg tablet 40 mg PO DAILY PRN (Reason: weight gain) Qty: 90 3RF torsemide 10 mg tablet 10 mg PO QAM Discharge Orders: Discharge Order (Routine); Ordered 05/29/22 Ordered By: Osmel Ortiz Admission Data Admit Date/Time: 05/22/22 23:19 Attending Provider: Osmel Ortiz Admit Provider: Brnadon Dominguez Primary Care Provider: Norma Pandey Other Providers: Brandon Dominguez ; Michael Miller ; Ari Barros ; Domingo Pimentel ; Marquis Kirk ; Davon Wetzel ; Jamie Ramos Jr ; Donald Warner ; Inez Quseada ; Samantha Pineda ; Frank Deras ; Haresh Whipple ; Mario Jaffe ; Adrianne Osborn ; Tamra Mccartney ; Miller Maldonado ; José Miguel Matson ; Jack Ta ; Marquis Briscoe V. ; Levon Loyola ; Marilee Valdez
[2022-05-29] MEDS: WARFARIN SOD 1 MG TAB PO SCH (15:11)
== END 2022-05-29 18:22 | disposition home or self-care (01) | DRG 291 ==
LOC: ED 18:37 → SUATTDRO 23:19 → 4W 23:19